=== PATIENT | female | born 1980 | race Caucasian/White ===

== ENCOUNTER 2018-01-30 20:53 | Emergency (ER) | payer MEDICAID, SELFPAY ==
--- NOTE | 2018-01-30 20:53 | DT_ITS ---
This patient was seen during an EMR downtime January 26, 2018 - February 02, 2018. This patient may have a combination of paper and electronic documentation or all paper documentation. All documentation is viewable within the e-chart portion of [employer] for each patient visit.
== END 2018-01-31 01:50 | disposition home or self-care (01) ==
PROVIDERS: Emergency Provider Emergency Medicine
DX: L50.9 Urticaria, unspecified (principal)
CPT/HCPCS: 96365; 96375; 99284

== ENCOUNTER → 2018-12-07 | Outpatient (CLI) | payer MEDICAID, SELFPAY ==
--- NOTE | 2018-12-07 13:56 | BI_ITS ---
MAMMOGRAPHY - BILATERAL DIAGNOSTIC REASON FOR EXAM: Female, 38 years old. History of right breast lump. PERTINENT HISTORY: Non-contributory. TECHNIQUE: Digital bilateral breast fitz (3D mammographic acquisition) in the CC and MLO projections. 2-D mediolateral oblique (MLO) and craniocaudad (CC) views of both breasts were obtained. CAD: Full Field Digital Mammography with Computer Added Detection was performed. COMPARISON: None. Baseline examination. FINDINGS: Breast Composition: There are scattered areas of fibroglandular density. There are no dominant masses or suspicious calcifications. There is a 3 mm well-defined nodule in the upper lateral aspect of the left breast most likely representing a small cyst. Benign appearing bilateral axillary lymph nodes. No other significant abnormalities are identified. BI/DIAG MAMM W/CAD, BILAT IMPRESSION: Negative diagnostic mammogram. With the patient's history of a palpable abnormality in the right breast, correlation with ultrasound is recommended. ASSESSMENT CATEGORY: BIRADS Category 0: Incomplete. Need additional imaging evaluation. A letter regarding these results will be sent to the patient by the facility within 30 days. Approximately 10% of breast cancers are not detected by mammography. A normal mammogram should not delay biopsy of a clinically suspicious abnormality. Electronically Signed: David Hutchins, at 8:07 EDT , Service support ,
--- NOTE | 2018-12-07 13:57 | US_ITS ---
STUDY: ULTRASOUND BREAST - RIGHT REASON FOR EXAM: Female, 38 years old. Palpable lump in the right breast. TECHNIQUE: Axial and longitudinal images of the RIGHT breast were performed with a high resolution ultrasound transducer. COMPARISON: Comparison is made with prior mammogram done earlier in the day. FINDINGS: RIGHT Breast: There is a 2 mm x 1 mm x 2 mm well-defined hypoechoic nodule at the 9:00 position of the breast at 3 cm from the nipple. This most likely represents a small fibroadenoma. This does not correspond to the palpable abnormality. IMPRESSION: 2 mm x 1 mm x 2 mm well-defined hypoechoic nodular density at the 9:00 position breast at 3 sinus and nipple. This may represent a small fibroadenoma. This does not correspond to the patient's palpable abnormality. A four-month follow-up sonogram of the breast is recommended. ASSESSMENT CATEGORY: BIRADS Category 3: Probably Benign - Short-Interval Follow-up Suggested. A letter regarding these results will be sent to the patient by the facility within 30 days. Electronically Signed: David Cuong, at 16:01 EDT , Service support , STUDY: ULTRASOUND BREAST - LEFT REASON FOR EXAM: Female, 38 years old. Abnormal screening mammogram. TECHNIQUE: Axial and longitudinal images of the LEFT breast were performed with a high resolution ultrasound transducer. COMPARISON: Comparison is made with prior mammogram done earlier in the day. FINDINGS: LEFT Breast: There is a 3 mm x 3 mm x 4 mm well-defined hypoechoic solid nodule at the 2:00 position breast at 8 cm from nipple. This corresponds to mammographic findings. A biopsy is recommended for further evaluation. US/Breast Limited Unilateral IMPRESSION: 3 mm x 3 mm x 4 mm well-defined hypoechoic nodule at the 2:00 position of the breast at 8 cm from the nipple. A biopsy is recommended. ASSESSMENT CATEGORY: BIRADS Category 4: Suspicious - Biopsy Should Be Considered. A letter regarding these results will be sent to the patient by the facility within 30 days. Electronically Signed: David Hutchins, at 16:02 EDT , Service support ,
== END | disposition home or self-care (01) ==
LOC: OPBI 13:52
PROVIDERS: Visit Provider Internal Medicine
DX: N63.41 Unspecified lump in right breast, subareolar (principal)
CPT/HCPCS: 76642; 77062; 77066; G0279

== ENCOUNTER 2021-07-16 16:24 | Emergency (ER) | payer MEDICAID, SELFPAY ==
[2021-07-16] VITALS (13 sets, daily range): BP systolic 113–132; BP diastolic 67–87; PULSE 72–99; RESP 14–28; TEMP 36.4–36.8; O2SAT 88–98; BMI 49.1
--- NOTE | 2021-07-16 16:59 | EKG12_ITS ---
Test Reason : SOB Blood Pressure : / mmHG Vent. Rate : 085 BPM Atrial Rate : 085 BPM P-R Int : 160 ms QRS Dur : 092 ms QT Int : 370 ms P-R-T Axes : 039 005 044 degrees QTc Int : 440 ms Normal sinus rhythm Normal ECG Confirmed by CAROLINE VIVEROS, DAISY ([id number]), editor at large JARVIS TREVINO ([id number]) on 07/20/2021 7:15:39 AM Referred By: MANOJ Confirmed By:DAISY VELAZQUEZ MD
--- NOTE | 2021-07-16 17:08 | EDS_ITS ---
HPI History of Present Illness Chief Complaint: Shortness of Breath Informant: patient Narrative Narrative: Patient presents with Covid symptoms. Her symptoms started Friday so she is on day 5-6. She was tested on Friday and got results on Friday. She has had some myalgias fevers. No nausea and vomiting. She has no appetite but she is able to eat. However she is not eating a lot. She is just starting with some mild soft stools. She has had nonproductive cough. She does feel bit dyspneic. She does not have an O2 sat at home. She is a smoker and was counseled to quit. She denies history of asthma or any chronic medical conditions. She did not get any immunizations. [facility] Medical History bunion removal d&c Home Medications hydroxyzine pamoate 25 mg PO TID PRN PRN #15 cap 04/21/17 [Rx Last Taken Unknown] acetaminophen 325 mg capsule 325 mg PO ONCE PRN 10/16/20 [History Last Taken Unknown] cholecalciferol (vitamin D3) 25 mcg (1,000 unit) capsule 25 mcg PO DAILY 10/16/20 [History Last Taken Unknown] ibuprofen 200 mg capsule 200 mg PO Q6H PRN 10/16/20 [History Last Taken Unknown] meloxicam 15 mg tablet 15 mg PO DAILY #30 tab 10/16/20 [Rx Last Taken Unknown] mirabegron 50 mg tablet,extended release 24 hr ea PO 10/16/20 [History Last Taken Unknown] multivitamin 1 tab PO DAILY 10/16/20 [History Last Taken Unknown] multivitamin with minerals 1 tab PO DAILY 10/16/20 [History Last Taken Unknown] topiramate 25 mg sprinkle capsule ea PO 10/16/20 [History Last Taken Unknown] venlafaxine 37.5 mg capsule,extended release 24 hr ea PO 10/16/20 [History Last Taken Unknown] albuterol sulfate [Ventolin HFA] 2 puff INHALATION Q4H PRN PRN #1 inhaler 07/16/21 [Rx Last Taken Unknown] dexamethasone [Decadron] 6 mg PO DAILY #10 tab 07/16/21 [Rx Last Taken Unknown] Allergy/AdvReac Type Severity Reaction Status Date / Time codeine Allergy Unknown Verified 07/16/21 16:46 Family History Mother Ovarian cancer Father CVA (cerebral vascular accident) Surgical History History of tonsillectomy Social History household members: children housing: house Smoking Status: Current every day smoker tobacco type: cigarettes alcohol intake: current alcohol intake frequency: 0-2 drinks per day what type of physical activity do you participate in: none do you feel safe at home: Yes ROS ROS ED Constitutional Constitutional ED: Reports chills and fever(s) Eyes Eyes: Denies blurry vision ENT ENT ED: Reports rhinorrhea; Denies sore throat Cardiovascular Cardiovascular: Denies chest pain or palpitations Respiratory/Chest Respiratory/Chest: Reports cough and dyspnea Gastrointestinal Gastrointestinal: Reports diarrhea; Denies abdominal pain, nausea or vomiting Genitourinary Genitourinary ED: Denies dysuria or hematuria Musculoskeletal Musculoskeletal: Reports myalgias Integumentary Denies rash Neurologic Neurologic: Reports headache(s); Denies paresthesias or weakness Endocrine Endocrinology: Denies polydipsia or polyuria Hematologic/Lymphatic Hematologic/Lymphatic: Denies easy bleeding or easy bruising Allergic/Immunologic Allergic/Immunologic ED: Denies mouth swelling or urticaria EXAM Physical Exam Const Vital Signs: 07/16/21 16:24 07/16/21 16:46 07/16/21 17:17 Temperature 97.6 F L Temperature Source Temporal Pulse Rate 99 91 Respiratory Rate 16 14 Respiratory Effort Short of Breath Respiratory Pattern Tachypnea Blood Pressure 127/87 H Blood Pressure Mean 100 Pulse Ox 92 97 Oxygen Delivery Method Room Air Room Air Nasal Cannula Oxygen Flow Rate (L/min) 2 07/16/21 17:29 07/16/21 17:31 07/16/21 18:43 Temperature 98 F Temperature Source Temporal Pulse Rate 87 87 88 Respiratory Rate 23 H 23 H 28 H Respiratory Effort Respiratory Pattern Blood Pressure 113/74 113/74 115/68 Blood Pressure Mean 87 87 83 Pulse Ox 96 96 96 Oxygen Delivery Method Room Air Room Air Oxygen Flow Rate (L/min) 2 07/16/21 19:26 07/16/21 20:35 07/16/21 21:26 Temperature Temperature Source Pulse Rate 95 74 72 Respiratory Rate 17 16 18 Respiratory Effort Respiratory Pattern Blood Pressure 132/77 H 128/83 H 120/69 Blood Pressure Mean 95 98 86 Pulse Ox 95 98 95 Oxygen Delivery Method Nasal Cannula Nasal Cannula Oxygen Flow Rate (L/min) 2 2 07/16/21 22:21 07/16/21 23:22 Temperature 98.2 F Temperature Source Oral Pulse Rate 74 Respiratory Rate 16 Respiratory Effort Respiratory Pattern Blood Pressure 114/67 132/74 H Blood Pressure Mean 82 93 Pulse Ox 98 Oxygen Delivery Method Room Air Oxygen Flow Rate (L/min) Positive well nourished, well developed and obese General Appearance ED: well developed and NAD Nutritional Appearance: obese HEENT Reports moist mucous membranes atraumatic Eyes General Eye ED: Negative for pale conjunctiva or scleral icterus Neck no meningeal signs and no JVD Resp normal respiratory effort and No clear to auscultation bilaterally Resp Narrative: Patient does have some mild expiratory wheezes. Auscultation: wheezes; Negative for rales, rhonchi or diminished lung sounds Cardio regular rate, regular rhythm and no murmurs GI non-tender and non-distended Palpation: soft Back/Spine no CVA tenderness Extremity normal to inspection General Extremety ED: Negative for edema or tenderness General Extremity: Negative for edema Neuro Sensorium / Orientation: alert Psych mental status grossly normal Skin Lesions: no lesions Rashes: no rashes MDM MDM MDM Narrative Medical decision making narrative: Patient's blood work showed normal CBC. Electrolytes were unremarkable. Chest x-ray did show infiltrates consistent with Covid. Patient did have some hypoxia here. We walked her off oxygen and got 87 and 88%. She actually did well on 2 L. We are waiting to get home oxygen for her. Lab Data Attestation: I reviewed the patient's lab results. Labs: Laboratory Results - last 24 hr 07/16/21 07/16/21 16:40 16:40 WBC 5.3 RBC 5.09 Hgb 14.3 Hct 42.5 MCV 83.5 MCH 28.1 MCHC 33.6 RDW Std Deviation 37.2 RDW Coeff of Donna 12.1 Plt Count 155 MPV 10.8 Immature Gran % (Auto) 0.400 Neut % (Auto) 75.5 H Lymph % (Auto) 17.5 L [place] % (Auto) 6.4 Eos % (Auto) 0.0 Baso % (Auto) 0.2 Absolute Neuts (auto) 4.0 Absolute Lymphs (auto) 0.93 Nucleated RBC % 0 Sodium 135 L Potassium 3.5 Chloride 102 Carbon Dioxide 24.0 Anion Gap 9 BUN 8 Creatinine 0.75 Estim Creat Clear Calc 85.24 Est GFR (MDRD) Af Amer 109 Est GFR (MDRD) Non-Af 90 BUN/Creatinine Ratio 10.6 Glucose 101 Calcium 8.3 L Radiography Diagnostic Testing: Clinical Impression(s) from Imaging Studies Chest X-Ray 07/16/21 17:10 IMPRESSION: Multifocal infiltrates with features commonly reported with COVID pneumonia. Electronically Signed: Joe Kirkland MD (Brooks) at 17:27 EST , Service support , EKG Initial EKG: Comments: EKG for dyspnea and cough read by me shows normal sinus rhythm with overall rate of 85. No ectopy. No acute ST elevation or depression. UT interval, QRS duration and QTc are normal. Discharge Plan Triage Chief Complaint: Shortness of Breath ED Provider: Yony Mojica Dx/Rx/DC Orders Clinical Impression: COVID-19, Hypoxia Instructions: Caring for Someone Who Has COVID-19 Prescriptions: New dexamethasone [Decadron] 6 mg tablet 6 mg PO DAILY Qty: 10 RF: 0 albuterol sulfate [Ventolin HFA] 1 INHALER inhaler 2 puff inhalation Q4H PRN PRN (Reason: Wheezing) Qty: 1 RF: 0 No Action mirabegron 50 mg tablet extended release 24 hr PO RF: 0 venlafaxine 37.5 mg capsule,extended release 24hr PO RF: 0 topiramate 25 mg capsule, sprinkle PO RF: 0 multivitamin with minerals [Hair,Skin and Nails] Tablet 1 tab PO DAILY RF: 0 cholecalciferol (vitamin D3) 25 mcg (1,000 unit) capsule 25 mcg PO DAILY RF: 0 multivitamin [Daily Multi-Vitamin] Tablet 1 tab PO DAILY RF: 0 acetaminophen [Tylenol] 325 mg capsule 325 mg PO ONCE PRNRF: 0 ibuprofen 200 mg capsule 200 mg PO Q6H PRNRF: 0 meloxicam [Mobic] 15 mg tablet 15 mg PO DAILY Qty: 30 RF: 0 hydroxyzine pamoate 25 MG capsule 25 mg PO TID PRN PRN (Reason: Anxiety) Qty: 15 RF: 0 Primary Care Provider: Jeanna Kate Referrals: Jeanna Kate MD [Primary Care Provider] - 1 Week if not improving Disposition Disposition: Home, Self Care Discharge Date/Time: 07/16/21 23:22
--- NOTE | 2021-07-16 17:10 | RAD_ITS ---
STUDY: X-RAY CHEST REASON FOR EXAM: Female, 41 years old. covid TECHNIQUE: AP COMPARISON: None. FINDINGS: EKG leads project over the chest. Multifocal infiltrates with features commonly reported with COVID pneumonia. There is no demonstrated pleural abnormality. Normal size heart. Normal mediastinum and nena. Normal visualized pulmonary arteries. Normal visualized aortic arch and descending thoracic aorta. Normal visualized thoracic spine. Normal visualized ribs, clavicles, and shoulders. There is no demonstrated abnormality of the visualized soft tissue structures of the upper abdomen. RAD/Chest 1 View (Portable) IMPRESSION: Multifocal infiltrates with features commonly reported with COVID pneumonia. Electronically Signed: Joe Kirkland MD (Brooks) at 17:27 EST , Service support ,
[2021-07-16] MEDS: Ipratropium/Albuterol Sulfate 3 ML AMPUL.NEB INHALATION (17:17)
[2021-07-16] MEDS: dexAMETHasone 4 MG/ML Vial 6 MG IV (17:17)
[2021-07-16 17:37] LABS: Absolute Lymphocyte Count 0.93 X10^3/uL (0.83-4.51); Basophil# 0.01 X10^3/uL; Basophil% 0.2 % (0-1); Hematocrit 42.5 % (37-47); Hemoglobin 14.3 g/dL (12.0-15.0); Lymphocyte # 0.93 X10^3/ul (0.83-4.51); Lymphocyte % 17.5 % (19-41); Mean Corp Hgb Conc 33.6 g/dL (32-36); Mean Corpuscular Hgb 28.1 pg (27.0-32.0); Mean Corpuscular Volume 83.5 fL (81-99); Mean Platelet Vol. 10.8 fl (6.2-12.0); Monocyte# 0.34 X10^3/uL; Monocyte% 6.4 % (0-10); NRBC Flagged by Analyzer 0 % (0-5); Neutrophil # 4.02 X10^3/uL (2.7-7.7); Neutrophil % 75.5 % (47-70); Platelet Count 155 K/mm3 (150-450); RBC Distribution Width CV 12.1 % (11.6-14.6); RBC Distribution Width SD 37.2 fl (35.1-43.9); Red Blood Count 5.09 M/mm3 (4.2-5.4); White Blood Count 5.3 K/mm3 (4.4-11.0)
[2021-07-16 17:49] LABS: Anion Gap 9 (5-15); BUN 8 mg/dL (7-18); BUN/Creat Ratio 10.6 RATIO (10-20); Calcium,Total 8.3 mg/dL (8.5-10.1); Chloride 102 mmol/L (98-107); Creatinine, Serum 0.75 mg/dL (0.55-1.02); EST Glomerular Filtration Rate 90 mL/min (>60); Est Glom Filt Rate - Afr Amer 109 mL/min (>60); Estimated Creatinine Clearance 85.24 ml/min; Glucose 101 mg/dL (74-106); Potassium 3.5 mmol/L (3.5-5.1); Sodium Level 135 mmol/L (136-145)
[2021-07-16] MEDS: Acetaminophen 500 MG Tablet 1000 MG PO (19:05)
--- NOTE | 2021-07-16 22:05 | CM.ED ---
Addendum entered by Cuca Braxton 07/16/21 22:26: NIESHA received confirmation receipt for fax . NIESHA provided paperwork to ED maintenance carpenter Alyssa for follow up after this global technical writer leaves. Cuca MONTANO Original Note: NIESHA Note NIESHA was advised by that patient needs home oxygen for discharge. NIESHA had already called [facility] and they have no concentrators. NIESHA had already called [facility] and they can not arrange for home oxygen tonight. NIESHA received email earlier in the day that [facility] has no concentrator's. NIESHA spoke to Harpreet at [facility]. They have no concentrators. They will get overnight shipment from [facility] so will have have some tomorrow. NIESHA called [facility] and spoke to Cuca. She reports that they should have concentrators and oxygen supplies. SHe advised to fax over testing results and documentation to their office. NIESHA faxed referral to [employer]. Cuca MONTANO
--- NOTE | 2021-07-16 22:20 | ED.RN ---
waiting on home o2
--- NOTE | 2021-07-17 14:44 | CASEMGMT ---
Addendum entered and electronically signed by Elda Mallory RN 07/17/21 14:49: Pt asked about use of O2 tank to go downstairs to prepare a meal. Relayed O2 tanks last approximately 4 hours at 2l/min but also suggested pt call [employer] to request additional tubing to allow her to navigate her home. Phone number for [employer] provided to pt. Dee Mallory RN CM Original Note: YONATAN SALTER ED COVID Home O2 Follow-up: This YONATAN SALTER contacted pt in follow-up to her home O2 set-up. Pt states she feels about the same and reports to become SOB and have severe coughing with minimal activity. Pt states she has remained upstairs and has not been moving around the house much. Pt states she has not been eating except for drinking water and she had 5 crackers with her medication. Pt states her dad dropped off her prescriptions to her. Pt states she has friends and family who have been stopping by intermittently but they do not stay. Pt states her children ages 10yo and 6yo remain in the home and bring her food intermittently and are primarily downstairs. Pt states she has asked family and friends to stay with the kids to help watch them but states she doesn't have much family near by to help. Discussed follow-up with Dr. Kate. Pt states she wasn't aware she was to call. Encouraged her to call Dr. Kate's office for follow-up which pt was agreeable to and experessed understanding. Pt states she continues to wear the O2 at 2l/min but does not have a pulse oximeter to know where her oxygen levels stand. Pt states she does have someone who could get her one. Pt denies any further questions or concerns at this time. Dee Mallory RN CM
--- NOTE | 2021-07-18 14:22 | CASEMGMT ---
RN JOIE ED COVID Home O2 Follow-up: Patient states she is not doing well, very SOB with activity. Patient states she is wearing 2 lpm and is at 88%. RN CM instructed patient to increase oxygen to 3lpm and patient came up to 90%. Patient states she is having some anxiety. RN CM encourage patient to call Dr. Kate's office after hanging up with YONATAN SALTER. Patient voiced understanding and had Dr. Kate's number to call. Patient had no further questions or concerns at this time.
== END 2021-07-16 23:22 | disposition home or self-care (01) ==
PROVIDERS: Emergency Provider Emergency Medicine; PCP Internal Medicine
DX: U07.1 COVID-19 (principal); R09.02 Hypoxemia; E66.9 Obesity, unspecified; F17.210 Nicotine dependence, cigarettes, uncomplicated
CPT/HCPCS: 71045; 80048; 85025; 93005; 94640; 96374; 99283; A4216

== ENCOUNTER 2021-07-18 21:17 | Inpatient (IN) | payer MEDICAID, SELFPAY ==
[2021-07-18] VITALS (9 sets, daily range): BP systolic 130–143; BP diastolic 75–82; PULSE 90–104; RESP 17–23; TEMP 36.2–37.4; O2SAT 90–92; BMI 66.0
--- NOTE | 2021-07-18 21:37 | EKG12_ITS ---
Test Reason : SOB Blood Pressure : / mmHG Vent. Rate : 088 BPM Atrial Rate : 088 BPM P-R Int : 144 ms QRS Dur : 090 ms QT Int : 348 ms P-R-T Axes : 044 009 036 degrees QTc Int : 421 ms Normal sinus rhythm Normal ECG Confirmed by CAROLINE VIVEROS, DAISY ([id number]), multimedia editor JARVIS TREVINO ([id number]) on 07/20/2021 11:43:58 AM Referred By: JAMEY Confirmed By:DAISY VELAZQUEZ MD
--- NOTE | 2021-07-18 21:50 | RAD_ITS ---
STUDY: X-RAY CHEST REASON FOR EXAM: Female, 41 years old. dypsnea TECHNIQUE: AP COMPARISON: 07/16/2021 FINDINGS: EKG leads project over the chest. Multilobar airspace disease involving the left midlung and right upper lobe worse since the prior study. There is no demonstrated pleural abnormality. Normal size heart. Normal mediastinum and nena. Normal visualized pulmonary arteries. Normal visualized aortic arch and descending thoracic aorta. Normal visualized thoracic spine. Normal visualized ribs, clavicles, and shoulders. There is no demonstrated abnormality of the visualized soft tissue structures of the upper abdomen. RAD/Chest 1 View (Portable) IMPRESSION: Worsening multilobar airspace disease/pneumonia. Electronically Signed: Joe Kirkland MD (Brooks) at 22:12 EST , Service support ,
[2021-07-18 21:52] LABS: Absolute Neutrophil Count 4.6 X10^3/uL (2.0-7.7); Hematocrit 41.8 % (37-47); Hemoglobin 13.9 g/dL (12.0-15.0); Lymphocyte % 9.2 % (19-41); Mean Corp Hgb Conc 33.3 g/dL (32-36); Mean Corpuscular Hgb 27.9 pg (27.0-32.0); Mean Corpuscular Volume 83.8 fL (81-99); Mean Platelet Vol. 10.3 fl (6.2-12.0); Monocyte# 0.33 X10^3/uL; Monocyte% 6.1 % (0-10); NRBC Flagged by Analyzer 0 % (0-5); Neutrophil # 4.59 X10^3/uL (2.7-7.7); Neutrophil % 84.3 % (47-70); POSITIVE DIFFERENTIAL YES; Platelet Count 199 K/mm3 (150-450); RBC Distribution Width CV 12.3 % (11.6-14.6); RBC Distribution Width SD 37.4 fl (35.1-43.9); Red Blood Count 4.99 M/mm3 (4.2-5.4); White Blood Count 5.4 K/mm3 (4.4-11.0)
[2021-07-18 21:58] LABS: Differential Indicated SCAN CRITERIA MET
[2021-07-18 22:08] LABS: Prothrombin Time (Protime)PT. 12.1 SECONDS (11.7-14.9)
[2021-07-18 22:12] LABS: Mucous, Urine 0 SEEN /hpf (<or=2+)
[2021-07-18 22:26] LABS: ALB/GLOB Ratio 0.6 RATIO (0.9-2.4); AST(SGOT) 29 U/L (15-37); Alanine Aminotransfer ALT/SGPT 30 U/L (13-56); Albumin, Serum 2.9 g/dL (3.2-5.0); Alkaline Phosphatase 64 U/L (45-117); Anion Gap 8 (5-15); BUN 10 mg/dL (7-18); BUN/Creat Ratio 16.5 RATIO (10-20); Calcium,Total 8.6 mg/dL (8.5-10.1); Chloride 104 mmol/L (98-107); EST Glomerular Filtration Rate 116 mL/min (>60); Est Glom Filt Rate - Afr Amer 140 mL/min (>60); Estimated Creatinine Clearance 106.55 ml/min; Globulin 4.6 g/dL (2.2-4.2); Glucose 157 mg/dL (74-106); Potassium 3.8 mmol/L (3.5-5.1); Protein, Total 7.5 g/dL (6.4-8.2); Sodium Level 139 mmol/L (136-145)
[2021-07-18 22:28] LABS: Lactic Acid 0.9 mmol/L (0.4-1.9)
[2021-07-18 22:29] LABS: Platelet Estimate ADEQUATE (ADEQ)
[2021-07-18 22:29] LABS: Color, Urine Yellow (Yellow); Glucose, Dipstick Normal (Normal); Ketone-Dipstick Negative (Negative); Leukocyte Esterase-Dipstick 100 /ul (Negative); Nitrite-Dipstick Negative (Negative); Occult Blood-Urine 25 /ul (Negative); Protein-Dipstick 100 mg/dl (Negative); Specific Gravity, Urine 1.015 (1.002-1.030); Urine Bilirubin Dipstick Negative (Negative); Urine Clarity Clear (Clear); Urine Urobilinogen 1 mg/dl (Normal)
[2021-07-18 22:30] LABS: Red Cell Morphology NORM C+C NORMAL (NORM C&C)
[2021-07-18 22:41] LABS: Bacteria 1+ /hpf (None Seen); Red Blood Cells-Urine 0-5 SEEN /hpf (0-5); Squamous Epithelial Cells - UA 5-10 SEEN /hpf (5-10); White Blood Cells 5-10 SEEN /hpf (0-5)
--- NOTE | 2021-07-18 22:56 | EDS_ITS ---
HPI History of Present Illness Chief Complaint: Shortness of Breath Narrative Narrative: 41-year-old female presenting with hypoxia. She is currently on day 8 of COVID-19 symptoms. Her fevers and chills have resolved. She noted that her pulse ox is 81% on 3 L. She states he was previously seen for this and sent home on oxygen continually declining and her O2 saturations. Patient is a smoker. She denies a history of COPD or asthma however. [facility] Medical History bunion removal d&c Home Medications hydroxyzine pamoate 25 mg PO TID PRN PRN #15 cap 04/21/17 [Rx Last Taken Unknown] acetaminophen 325 mg capsule 325 mg PO ONCE PRN 10/16/20 [History Last Taken Unknown] cholecalciferol (vitamin D3) 25 mcg (1,000 unit) capsule 25 mcg PO DAILY 10/16/20 [History Last Taken Unknown] ibuprofen 200 mg capsule 200 mg PO Q6H PRN 10/16/20 [History Last Taken Unknown] meloxicam 15 mg tablet 15 mg PO DAILY #30 tab 10/16/20 [Rx Last Taken Unknown] mirabegron 50 mg tablet,extended release 24 hr ea PO 10/16/20 [History Last Taken Unknown] multivitamin 1 tab PO DAILY 10/16/20 [History Last Taken Unknown] multivitamin with minerals 1 tab PO DAILY 10/16/20 [History Last Taken Unknown] topiramate 25 mg sprinkle capsule ea PO 10/16/20 [History Last Taken Unknown] venlafaxine 37.5 mg capsule,extended release 24 hr ea PO 10/16/20 [History Last Taken Unknown] albuterol sulfate [Ventolin HFA] 2 puff INHALATION Q4H PRN PRN #1 inhaler 07/16/21 [Rx Last Taken Unknown] dexamethasone [Decadron] 6 mg PO DAILY #10 tab 07/16/21 [Rx Last Taken Unknown] Allergy/AdvReac Type Severity Reaction Status Date / Time codeine Allergy Unknown Verified 07/18/21 21:19 Family History Mother Ovarian cancer Father CVA (cerebral vascular accident) Surgical History History of tonsillectomy Social History household members: children housing: house Smoking Status: Current every day smoker tobacco type: cigarettes alcohol intake: current alcohol intake frequency: 0-2 drinks per day what type of physical activity do you participate in: none do you feel safe at home: Yes ROS ROS ED Constitutional Constitutional ED: Denies chills or fever(s) Eyes Eyes: Denies blurry vision or diplopia ENT ENT ED: Denies rhinorrhea or sore throat Cardiovascular Cardiovascular: Denies chest pain or palpitations Respiratory/Chest Respiratory/Chest: Reports cough, dyspnea and dyspnea on exertion Gastrointestinal Gastrointestinal: Denies abdominal pain, nausea or vomiting Genitourinary Genitourinary ED: Denies dysuria or hematuria Musculoskeletal Musculoskeletal: Denies arthralgias or myalgias Integumentary Denies Abrasions or rash Neurologic Neurologic: Denies headache(s) or paresthesias EXAM Physical Exam Const Vital Signs: 07/18/21 21:17 07/18/21 21:27 07/18/21 21:43 Temperature 97.2 F L 97.2 F L 98.2 F Temperature Source Temporal Temporal Temporal Pulse Rate 104 H 104 H 94 Respiratory Rate 20 H 20 H 23 H Blood Pressure 143/82 H 143/82 H 138/79 H Blood Pressure Mean 102 102 98 Pulse Ox 90 90 92 Oxygen Delivery Method Nasal Cannula Nasal Cannula Nasal Cannula Oxygen Flow Rate (L/min) 3 3 3 07/18/21 21:46 07/18/21 22:39 07/18/21 22:41 Temperature 98.3 F 99.3 F H Temperature Source Temporal Temporal Pulse Rate 90 Respiratory Rate 17 Blood Pressure 130/75 H Blood Pressure Mean 93 Pulse Ox 90 90 Oxygen Delivery Method Nasal Cannula Nasal Cannula Oxygen Flow Rate (L/min) 4 4 07/18/21 22:42 07/18/21 23:22 Temperature Temperature Source Pulse Rate 100 Respiratory Rate 21 H Blood Pressure Blood Pressure Mean Pulse Ox 92 Oxygen Delivery Method Nasal Cannula Oxygen Flow Rate (L/min) 5 Positive well nourished General Appearance ED: NAD; Negative for pallor HEENT Reports moist mucous membranes atraumatic Eyes PERRL and EOMs intact bilaterally Resp normal respiratory effort Auscultation: wheezes scattered wheezes Cardio regular rhythm Rate: bradycardia Neuro oriented x3, CN's II-XII intact bilaterally and no sensory deficits noted Sensorium / Orientation: alert Motor Exam: strength 5/5 throughout Skin General Skin Exam: Negative for jaundice or pallor Rashes: no rashes MDM MDM MDM Narrative Medical decision making narrative: Patient on day 8 of COVID-19 symptoms presenting with hypoxia. On my examination she is 90% on her 3 L. She states she drop she is going to the bedside commode. She was 81% at home. Obtain an EKG as well as initiate a sepsis work-up due to the tachycardia, tachypnea and hypoxia. EKG on my interpretation shows normal sinus rhythm ventricular rate of 88 bpm. CBC shows her white blood cell count is 5.4, hemoglobin 13.9, hematocrit 41.8, platelets 199. PT/INR normal. Renal function and electrolytes are normal. LFTs are normal. Lactic acid 0.9. Urinalysis negative for infection. Chest x-ray on my interpretation shows multi lobar infiltrates which appear worse than her previous exam. The radiologist does agree. Given patient's hypoxia will obtain a CTA of the chest to rule out PE. CTA of the chest is negative for PE but does show extensive Covid pneumonitis. I reevaluated the patient and she stated after breathing treatment she felt a little warm. I checked her temperature personally and it was 101. She is ordered Tylenol. Given patient's hypoxia and failed outpatient treatment I will talk to the hospitalist for admission. Impression: 1. Hypoxic respiratory failure 2. COVID-19 pneumonitis Lab Data Labs: Laboratory Results - last 24 hr 07/18/21 07/18/21 07/18/21 21:40 21:40 21:40 WBC 5.4 RBC 4.99 Hgb 13.9 Hct 41.8 MCV 83.8 MCH 27.9 MCHC 33.3 RDW Std Deviation 37.4 RDW Coeff of Donna 12.3 Plt Count 199 MPV 10.3 Immature Gran % (Auto) 0.400 Neut % (Auto) 84.3 H Lymph % (Auto) 9.2 L [place] % (Auto) 6.1 Eos % (Auto) 0.0 Baso % (Auto) 0.0 Absolute Neuts (auto) 4.6 Absolute Lymphs (auto) 0.50 L Nucleated RBC % 0 Differential Comment Platelet Estimate ADEQUATE RBC Morphology NORM C+C PT 12.1 INR 1.0 APTT 32.0 Sodium 139 Potassium 3.8 Chloride 104 Carbon Dioxide 27.0 Anion Gap 8 BUN 10 Creatinine 0.60 Estim Creat Clear Calc 106.55 Est GFR (MDRD) Af Amer 140 Est GFR (MDRD) Non-Af 116 BUN/Creatinine Ratio 16.5 Glucose 157 H Lactic Acid Calcium 8.6 Total Bilirubin 0.30 AST 29 ALT 30 Alkaline Phosphatase 64 Total Protein 7.5 Albumin 2.9 L Globulin 4.6 H Albumin/Globulin Ratio 0.6 L Urine Color Urine Clarity Urine pH Ur Specific [place] Urine Protein Urine Glucose (UA) Urine Ketones Urine Occult Blood Urine Nitrite Urine Bilirubin Urine Urobilinogen Ur Leukocyte Esterase Urine RBC Urine WBC Ur Squamous Epith Cells Urine Bacteria Urine Mucus 07/18/21 07/18/21 21:40 22:00 WBC RBC Hgb Hct MCV MCH MCHC RDW Std Deviation RDW Coeff of Donna Plt Count MPV Immature Gran % (Auto) Neut % (Auto) Lymph % (Auto) [place] % (Auto) Eos % (Auto) Baso % (Auto) Absolute Neuts (auto) Absolute Lymphs (auto) Nucleated RBC % Differential Comment Platelet Estimate RBC Morphology PT INR APTT Sodium Potassium Chloride Carbon Dioxide Anion Gap BUN Creatinine Estim Creat Clear Calc Est GFR (MDRD) Af Amer Est GFR (MDRD) Non-Af BUN/Creatinine Ratio Glucose Lactic Acid 0.9 Calcium Total Bilirubin AST ALT Alkaline Phosphatase Total Protein Albumin Globulin Albumin/Globulin Ratio Urine Color Yellow Urine Clarity Clear Urine pH 6.0 Ur Specific [place] 1.015 Urine Protein 100 H Urine Glucose (UA) Normal Urine Ketones Negative Urine Occult Blood 25 H Urine Nitrite Negative Urine Bilirubin Negative Urine Urobilinogen 1 H Ur Leukocyte Esterase 100 H Urine RBC 0-5 SEEN Urine WBC 5-10 SEEN Ur Squamous Epith Cells 5-10 SEEN Urine Bacteria 1+ Urine Mucus 0 SEEN Radiography Diagnostic Testing: Clinical Impression(s) from Imaging Studies Chest X-Ray 07/18/21 21:50 IMPRESSION: Worsening multilobar airspace disease/pneumonia. Electronically Signed: Joe Kirkland MD ([place]) at 22:12 EST , Service support , Chest CTA 11/24/21 23:18 IMPRESSION: 1. No evidence of pulmonary embolus. 2. No aortic dissection or aneurysm. 3. Patchy ground glass infiltrates suggestive of COVID pneumonia. Electronically Signed: Piero Nicholson DO at 23:48 EST Tel [phone], Service support , Discharge Plan Triage Chief Complaint: Shortness of Breath ED Provider: Dylon Carter Dx/Rx/DC Orders Prescriptions: No Action mirabegron 50 mg tablet extended release 24 hr PO RF: 0 venlafaxine 37.5 mg capsule,extended release 24hr PO RF: 0 topiramate 25 mg capsule, sprinkle PO RF: 0 multivitamin with minerals [Hair,Skin and Nails] Tablet 1 tab PO DAILY RF: 0 cholecalciferol (vitamin D3) 25 mcg (1,000 unit) capsule 25 mcg PO DAILY RF: 0 multivitamin [Daily Multi-Vitamin] Tablet 1 tab PO DAILY RF: 0 acetaminophen [Tylenol] 325 mg capsule 325 mg PO ONCE PRN (Reason: Fever Or Pain) RF: 0 ibuprofen 200 mg capsule 200 mg PO Q6H PRN (Reason: Fever Or Pain) RF: 0 meloxicam [Mobic] 15 mg tablet 15 mg PO DAILY Qty: 30 RF: 0 hydroxyzine pamoate 25 MG capsule 25 mg PO TID PRN PRN (Reason: Anxiety) Qty: 15 RF: 0 dexamethasone [Decadron] 6 mg tablet 6 mg PO DAILY Qty: 10 RF: 0 albuterol sulfate [Ventolin HFA] 1 INHALER inhaler 2 puff inhalation Q4H PRN PRN (Reason: Wheezing) Qty: 1 RF: 0 Primary Care Provider: Jeanna Kate
--- NOTE | 2021-07-18 23:06 | ED.RN ---
Confirmed with Dr Raul weir to CT without test. Patient does confirm no concerns for .
--- NOTE | 2021-07-18 23:18 | CT_ITS ---
STUDY: CTA CHEST REASON FOR EXAM: Female, 41 years old. Hypoxia. COVID. Worsening shortness of breath. RADIATION DOSAGE (If Supplied By Facility): CTDIvol = ( 11.48 ) mGy, DLP = ( 494.24 ) mGycm TECHNIQUE: The examination was performed with the intravenous administration of IV 100mL Isovue-370. Post-processing of the angiographic images was performed, with multiplanar reformation and 3D reconstruction. Individualized dose optimization techniques were used for this CT. COMPARISON: Chest, 07/18/2021 FINDINGS: Normal enhancement of the main pulmonary artery and right and left pulmonary arteries. Normal enhancement of the bilateral peripheral pulmonary arteries. There is no demonstrated pulmonary embolism. Normal thoracic aorta and visualized great vessels. There is no demonstrated aortic dissection. Normal heart and pericardium. Normal mediastinum. Normal hilar regions. Normal visualized trachea and bronchi. The lungs are well expanded. And she predominantly peripheral groundglass infiltrates throughout both lungs greater on the left. There is no consolidation or mass. Normal pleura. Normal chest wall structures. There are degenerative changes of thoracic spine. Normal visualized upper abdomen. CT/CTA Chest W/WO Contrast IMPRESSION: 1. No evidence of pulmonary embolus. 2. No aortic dissection or aneurysm. 3. Patchy ground glass infiltrates suggestive of COVID pneumonia. Electronically Signed: Piero Nicholson DO at 23:48 EST Tel [phone], Service support ,
[2021-07-18] MEDS: Albuterol 2.5 MG/3 ML VIAL.NEB. INHALATION (23:22)
[2021-07-18] MEDS: Ipratropium/Albuterol Sulfate 3 ML AMPUL.NEB INHALATION (23:22)
[2021-07-19] VITALS (15 sets, daily range): BP systolic 106–140; BP diastolic 52–82; PULSE 89–102; RESP 16–26; TEMP 36.9–38.6; O2SAT 87–94; BMI 48.6
[2021-07-19] MEDS: Acetaminophen 500 MG Tablet 1000 MG PO (00:03)
--- NOTE | 2021-07-19 00:12 | HP.PCM.HOS_ITS ---
HPI - General General Date of Admission: 07/19/21 HPI Maura BE is a 41 F with a significant history of anxiety disorder, tobacco abuse, and morbid obesity who presents to emergency department with progressively worsening shortness of breath that started 3 days before p resentation. Associated with her symptoms is cough productive for greenish and at times clear sputum. Further she has fatigue, fever, chills, diaphoresis and anorexia. She had diarrhea that has since resolved. She tested positive for Covid 8 days before presentations and she has had Covid-like symptoms a day before presentation. She was at the hospital a day before this new presentation and was discharged home on oxygen. While on 2 L home oxygen she continued to be hypoxic and even with increasing her oxygen to 3 L her oxygen saturation was about 81%. [facility] Medical History bunion removal d&c Smoker Home Medications hydroxyzine pamoate 25 mg PO TID PRN PRN #15 cap 04/21/17 [Rx Last Taken Unkn own] acetaminophen 325 mg capsule 325 mg PO ONCE PRN 10/16/20 [History Last Taken Unknown] cholecalciferol (vitamin D3) 25 mcg (1,000 unit) capsule 25 mcg PO DAILY 10/16/20 [History Last Taken Unknown] ibuprofen 200 mg capsule 200 mg PO Q6H PRN 10/16/20 [History Last Taken Unknown] meloxicam 15 mg tablet 15 mg PO DAILY #30 tab 10/16/20 [Rx Last Taken Unknown] mirabegron 50 mg tablet,extended release 24 hr ea PO 10/16/20 [History Last Taken Unknown] multivitamin 1 tab PO DAILY 10/16/20 [History Last Taken Unknown] multivitamin with minerals 1 tab PO DAILY 10/16/20 [History Last Taken Unknown] topiramate 25 mg sprinkle capsule ea PO 10/16/20 [History Last Taken Unknown] venlafaxine 37.5 mg capsule,extended release 24 hr ea PO 10/16/20 [History Last Taken Unknown] albuterol sulfate [Ventolin HFA] 2 puff INHALATION Q4H PRN PRN #1 inhaler 07/16/21 [Rx Last Taken Unknown] dexamethasone [Decadron] 6 mg PO DAILY #10 tab 07/16/21 [Rx Last Taken Unknown] Allergy/AdvReac Type Severity Reaction Status Date / Time codeine Allergy Unknown Verified 07/18/21 21:19 Family History Mother Ovarian cancer Father CVA (cerebral vascular accident) Surgical History History of tonsillectomy Social History household members: children housing: house Smoking Status: Current every day smoker tobacco type: cigarettes alcohol intake: current alcohol intake frequency: 0-2 drinks per day what type of physical activity do you participate in: none do you feel safe at home: Yes ROS ROS Narrative Constitutional: Reports fever and chills. She reports anorexia. Eyes: Denies blurry vision, change in eye color, change in vision, discharge from eye(s), double vision, erythema, eye pain, loss of vision or other HEENT: Denies abnormal hearing, dysphagia, ear pain, epistaxis, headache(s), hearing loss, nasal congestion, nasal discharge, post nasal drip, sinus pressure, sore throat or other Cardiovascular: Denies chest pain or palpitations. Respiratory/Chest: Reports a productive cough and shortness of breath. Gastrointestinal: Reports recent diarrhea (now resolved). Denies abdominal pain, coffee ground emesis, constipation, diarrhea, dyspepsia, hematemesis, hematochezia, loose stools, melena, or other Genitourinary: Denies burning urination, difficulty urinating, dysuria, hematuria, nocturia, urinary frequency, urinary hesitancy, urinary incontinence, urinary urgency or other Musculoskeletal: Denies arthralgias, back pain, joint pain, joint stiffness, joint swelling, neck pain or other Neurologic: Denies abnormal gait, abnormal speech, confusion, disequilibrium, dizziness, focal weakness, headache(s), numbness, paresthesias, seizure-like activity, seizures, syncope, tingling, tremor(s) or other Psychiatric: Reports anxiety. Denies homicidal ideation, suicidal ideation or other Endocrinology: Denies change in body appearance, cold intolerance, excessive sweating, heat intolerance, polydipsia, polyuria or other Hematologic/Lymphatic: Denies anemia, easy bleeding, easy bruising, ly mphadenopathy or other Integumentary: Denies rashes Allergic/Immunologic: Denies rhinitis, hives, eczema, asthma or other Vital Signs Vital Signs Vital Signs: 07/18/21 21:17 07/18/21 21:27 07/18/21 21:43 Temperature 97.2 F L 97.2 F L 98.2 F Temperature Source Temporal Temporal Temporal Pulse Rate 104 H 104 H 94 Respiratory Rate 20 H 20 H 23 H Blood Pressure 143/82 H 143/82 H 138/79 H Blood Pressure Mean 102 102 98 Pulse Ox 90 90 92 Oxygen Delivery Method Nasal Cannula Nasal Cannula Nasal Cannula Oxygen Flow Rate (L/min) 3 3 3 07/18/21 21:46 07/18/21 22:39 07/18/21 22:41 Temperature 98.3 F 99.3 F H Temperature Source Temporal Temporal Pulse Rate 90 Respiratory Rate 17 Blood Pressure 130/75 H Blood Pressure Mean 93 Pulse Ox 90 90 Oxygen Delivery Method Nasal Cannula Nasal Cannula Oxygen Flow Rate (L/min) 4 4 07/18/21 22:42 07/18/21 23:22 07/19/21 00:02 Temperature 100.3 F H Temperature Source Temporal Pulse Rate 100 100 Respiratory Rate 21 H 26 H Blood Pressure 133/74 H Blood Pressure Mean 93 Pulse Ox 92 93 Oxygen Delivery Method Nasal Cannula Nasal Cannula Oxygen Flow Rate (L/min) 5 5 Weight Weight: 174.633 kg Body Mass Index (BMI) 66.0 Physical Exam Narrative Physical exam: General: Morbidly obese female. Head: Normocephalic, atraumatic, no tenderness Eyes: PERRLA, EOMI ENT, no trauma, moist mucous membranes, no rhinorrhea Neck: Nontender, full range of motion, no spinal tenderness, deformities, step- off CVS: Regular rate and rhythm. S1-S2 present. No murmur, gallop or rub. Respiratory : Tachypnea, diminished and with rales. Chest wall nontender. No wheezes. Abdomen: Soft, nontender, nondistended, normal bowel sounds, no masses : Deferred Back: Nontender, no CVA tenderness, no midline spinal tenderness, deformities, step-offs Extremities: Nontender full range of motion, no trauma Skin: Normal color, no trauma, abrasions Neuro: Alert, oriented, cranial nerves II through XII grossly intact. Psychiatry: Normal mood. Normal affect. Not depressed. Not anxious. Results Lab / Micro Data Result Diagrams: 07/18/21 21:40 07/18/21 21:40 Labs: Laboratory Results - last 24 hr 07/18/21 21:40: WBC 5.4, RBC 4.99, Hgb 13.9, Hct 41.8, MCV 83.8, MCH 27.9, MCHC 33.3, RDW Std Deviation 37.4, RDW Coeff of Donna 12.3, Plt Count 199, MPV 10.3, Immature Gran % (Auto) 0.400, Neut % (Auto) 84.3 H, Lymph % (Auto) 9.2 L, [place] % (Auto) 6.1, Eos % (Auto) 0.0, Baso % (Auto) 0.0, Absolute Neuts (auto) 4.6, Absolute Lymphs (auto) 0.50 L, Nucleated RBC % 0, Differential Comment , Platelet Estimate ADEQUATE, RBC Morphology NORM C+C 07/18/21 21:40: PT 12.1, INR 1.0, APTT 32.0 07/18/21 21:40: Sodium 139, Potassium 3.8, Chloride 104, Carbon Dioxide 27.0, Anion Gap 8, BUN 10, Creatinine 0.60, Estim Creat Clear Calc 106.55, Est GFR (MDRD) Af Amer 140, Est GFR (MDRD) Non-Af 116, BUN/Creatinine Ratio 16.5, Glucose 157 H, Calcium 8.6, Total Bilirubin 0.30, AST 29, ALT 30, Alkaline Phosphatase 64, Total Protein 7.5, Albumin 2.9 L, Globulin 4.6 H, Albumin/Globulin Ratio 0.6 L 07/18/21 21:40: Lactic Acid 0.9 07/18/21 22:00: Urine Color Yellow, Urine Clarity Clear, Urine pH 6.0, Ur Specific [place] 1.015, Urine Protein 100 H, Urine Glucose (UA) Normal, Urine Ketones Negative, Urine Occult Blood 25 H, Urine Nitrite Negative, Urine Bilirubin Negative, Urine Urobilinogen 1 H, Ur Leukocyte Esterase 100 H, Urine RBC 0-5 SEEN, Urine WBC 5-10 SEEN, Ur Squamous Epith Cells 5-10 SEEN, Urine Bacteria 1+, Urine Mucus 0 SEEN Radiology Impression Chest X-Ray 07/18/21 21:50 IMPRESSION: Worsening multilobar airspace disease/pneumonia. Electronically Signed: Joe Kirkland MD ([place]) at 22:12 EST , Service support , Chest CTA 07/18/21 23:18 IMPRESSION: 1. No evidence of pulmonary embolus. 2. No aortic dissection or aneurysm. 3. Patchy ground glass infiltrates suggestive of COVID pneumonia. Electronically Signed: Piero Nicholson DO at 23:48 EST Tel [phone], Service support , Assessment & Plan Assessment/Plan (1) COVID-19: (2) Hypoxia: (3) Acute hypoxemic respiratory failure: (4) Morbid obesity due to excess calories: PLAN: Acute hypoxemic respiratory failure secondary to SARS- COV 2 Respiratory rate as high as 26. Requiring 5 L nasal cannula oxygen to maintain oxygen saturation of 93%. On home 2 to 3 L her oxygen saturation was in the 80s. Supplemental oxygen continued Chest x-ray on 07/18/2021 and.of 07/16/2021 was independently interpreted and I agree with radiologist interpretation of progressively worsening multifocal pneumonia. Chest CTA was independently interpreted and I agree with radiologist interpretation above. Positive coronavirus test outpatient. Order to obtain records. Review of labs shows normal white count. Was on home decadron. continued. Creatinine clearance is more than 30. Liver biochemistry is normal. Remdesivir ordered. Tylenol for fever and pain Mucinex ordered Incentive spirometer; and chest physiotherapy ordered. Tobacco abuse Counselled. She has not smoked since her marino virus symptoms started. Declined nicotine patch. Morbid Obesity due to excess calories: BMI: 48.7Kg/m2. Complicates care. Lifestyle modification recommended. DVT prophylaxis Subcutaneous Lovenox ordered. Charges/Coding Visit Charges Inpatient E&M: 29080 Init Hosp L3
[2021-07-19] MEDS: guaiFENesin 1,200 MG Tablet 1200 MG PO ×3 (01:15→21:23)
[2021-07-19 01:43] LABS: Procalcitonin 0.05 ng/mL (0.00-0.09)
--- NOTE | 2021-07-19 03:52 | PCS.PANDOC ---
PANDEMIC DOCUMENTATION INITIATED: Date: 04/09/2021 Time: 190
[2021-07-19 08:04] LABS: Absolute Lymphocyte Count 0.96 X10^3/uL (0.83-4.51); Absolute Neutrophil Count 5.8 X10^3/uL (2.0-7.7); Basophil# 0.01 X10^3/uL; Basophil% 0.1 % (0-1); Hematocrit 39.2 % (37-47); Hemoglobin 13.3 g/dL (12.0-15.0); Lymphocyte # 0.96 X10^3/ul (0.83-4.51); Lymphocyte % 13.3 % (19-41); Mean Corp Hgb Conc 33.9 g/dL (32-36); Mean Corpuscular Hgb 28.5 pg (27.0-32.0); Mean Corpuscular Volume 84.1 fL (81-99); Mean Platelet Vol. 10.1 fl (6.2-12.0); Monocyte# 0.44 X10^3/uL; Monocyte% 6.1 % (0-10); NRBC Flagged by Analyzer 0 % (0-5); Neutrophil # 5.79 X10^3/uL (2.7-7.7); Neutrophil % 80.1 % (47-70); Platelet Count 187 K/mm3 (150-450); RBC Distribution Width CV 12.6 % (11.6-14.6); RBC Distribution Width SD 38.2 fl (35.1-43.9); Red Blood Count 4.66 M/mm3 (4.2-5.4); White Blood Count 7.2 K/mm3 (4.4-11.0)
[2021-07-19 08:23] LABS: ALB/GLOB Ratio 0.6 RATIO (0.9-2.4); AST(SGOT) 29 U/L (15-37); Alanine Aminotransfer ALT/SGPT 27 U/L (13-56); Albumin, Serum 2.7 g/dL (3.2-5.0); Alkaline Phosphatase 57 U/L (45-117); Anion Gap 7 (5-15); BUN 8 mg/dL (7-18); BUN/Creat Ratio 12.6 RATIO (10-20); Calcium,Total 8.5 mg/dL (8.5-10.1); Chloride 103 mmol/L (98-107); Creatinine, Serum 0.63 mg/dL (0.55-1.02); EST Glomerular Filtration Rate 110 mL/min (>60); Est Glom Filt Rate - Afr Amer 133 mL/min (>60); Estimated Creatinine Clearance 101.48 ml/min; Globulin 4.5 g/dL (2.2-4.2); Glucose 104 mg/dL (74-106); Potassium 3.6 mmol/L (3.5-5.1); Protein, Total 7.2 g/dL (6.4-8.2); Sodium Level 140 mmol/L (136-145)
--- NOTE | 2021-07-19 08:48 | CPS ---
Pt was placed on 10lpm high flow cannula, saturation to 90%. Pt was also instructed on pursed lip breathing. Pt's nurse aware of change.
[2021-07-19] MEDS: Enoxaparin 40 MG/0.4 ML Syringe SC ×2 (10:04→21:07)
[2021-07-19] MEDS: Acetaminophen 325 MG Tablet 650 MG PO (10:06)
[2021-07-19] MEDS: Cholecalciferol (VIT D3) 25 MCG TABLET (1,000 UNITS) PO (10:06)
[2021-07-19] MEDS: Meloxicam 15 MG Tablet PO (10:06)
[2021-07-19] MEDS: Multivitamins,Ther W-Minerals Tablet 1 TABLET PO (10:06)
[2021-07-19] MEDS: LORazepam 1 MG Tablet PO ×2 (10:07→21:07)
[2021-07-19] MEDS: dexAMETHasone 2 MG TABLET 6 MG PO (10:08)
--- NOTE | 2021-07-19 12:03 | PCM.PN.HOSP ---
Subjective Subjective Patient states she cannot get comfortable, she feels hot, and she has having a lot of issues with anxiety. I did discuss with her the importance of prone lying, using her incentive spirometry and Acapella, and mobility. We did discuss CODE STATUS and she does want to remain full code. She reports she has been on Effexor for for anxiety. Objective Data Objective Data Vital Signs: Vital Signs Temp Pulse Resp BP Pulse Ox 101.4 F H 102 H 20 H 140/79 H 91 07/19/21 09:15 07/19/21 09:15 07/19/21 09:15 07/19/21 09:15 07/19/21 09:15 Oxygen Flow Rate (L/min) 10 Oxygen Delivery Method High Flow Weight: 128.7 kg Body Mass Index (BMI) 48.6 Intake & Output: Intake and Output for Last 24 Hours 07/17/21 07/18/21 07/19/21 23:59 23:59 23:59 Intake Total 850 / 850 Balance 850 / 850 Lab / Micro Data Result Diagrams: 07/19/21 07:50 07/19/21 07:50 Labs: Laboratory Results - last 24 hr 07/18/21 21:30: Procalcitonin 0.05 07/18/21 21:40: WBC 5.4, RBC 4.99, Hgb 13.9, Hct 41.8, MCV 83.8, MCH 27.9, MCHC 33.3, RDW Std Deviation 37.4, RDW Coeff of Donna 12.3, Plt Count 199, MPV 10.3, Immature Gran % (Auto) 0.400, Neut % (Auto) 84.3 H, Lymph % (Auto) 9.2 L, [place] % (Auto) 6.1, Eos % (Auto) 0.0, Baso % (Auto) 0.0, Absolute Neuts (auto) 4.6, Absolute Lymphs (auto) 0.50 L, Nucleated RBC % 0, Differential Comment , Platelet Estimate ADEQUATE, RBC Morphology NORM C+C 07/18/21 21:40: PT 12.1, INR 1.0, APTT 32.0 07/18/21 21:40: Sodium 139, Potassium 3.8, Chloride 104, Carbon Dioxide 27.0, Anion Gap 8, BUN 10, Creatinine 0.60, Estim Creat Clear Calc 106.55, Est GFR (MDRD) Af Amer 140, Est GFR (MDRD) Non-Af 116, BUN/Creatinine Ratio 16.5, Glucose 157 H, Calcium 8.6, Total Bilirubin 0.30, AST 29, ALT 30, Alkaline Phosphatase 64, Total Protein 7.5, Albumin 2.9 L, Globulin 4.6 H, Albumin/Globulin Ratio 0.6 L 07/18/21 21:40: Lactic Acid 0.9 07/18/21 22:00: Urine Color Yellow, Urine Clarity Clear, Urine pH 6.0, Ur Specific [place] 1.015, Urine Protein 100 H, Urine Glucose (UA) Normal, Urine Ketones Negative, Urine Occult Blood 25 H, Urine Nitrite Negative, Urine Bilirubin Negative, Urine Urobilinogen 1 H, Ur Leukocyte Esterase 100 H, Urine RBC 0-5 SEEN, Urine WBC 5-10 SEEN, Ur Squamous Epith Cells 5-10 SEEN, Urine Bacteria 1+, Urine Mucus 0 SEEN 07/19/21 07:50: WBC 7.2, RBC 4.66, Hgb 13.3, Hct 39.2, MCV 84.1, MCH 28.5, MCHC 33.9, RDW Std Deviation 38.2, RDW Coeff of Donna 12.6, Plt Count 187, MPV 10.1, Immature Gran % (Auto) 0.400, Neut % (Auto) 80.1 H, Lymph % (Auto) 13.3 L, [place] % (Auto) 6.1, Eos % (Auto) 0.0, Baso % (Auto) 0.1, Absolute Neuts (auto) 5.8, Absolute Lymphs (auto) 0.96, Nucleated RBC % 0 07/19/21 07:50: Sodium 140, Potassium 3.6, Chloride 103, Carbon Dioxide 30.0, Anion Gap 7, BUN 8, Creatinine 0.63, Estim Creat Clear Calc 101.48, Est GFR (MDRD) Af Amer 133, Est GFR (MDRD) Non-Af 110, BUN/Creatinine Ratio 12.6, Glucose 104, Calcium 8.5, Total Bilirubin 0.30, AST 29, ALT 27, Alkaline Phosphatase 57, Total Protein 7.2, Albumin 2.7 L, Globulin 4.5 H, Albumin/Globulin Ratio 0.6 L Radiography Diagnostic Testing: Radiology Impression Chest X-Ray 07/18/21 21:50 IMPRESSION: Worsening multilobar airspace disease/pneumonia. Electronically Signed: Joe Kirkland MD (Bro[place]) at 22:12 EST , Service support , Chest CTA 07/18/21 23:18 IMPRESSION: 1. No evidence of pulmonary embolus. 2. No aortic dissection or aneurysm. 3. Patchy ground glass infiltrates suggestive of COVID pneumonia. Electronically Signed: Piero Nicholson DO at 23:48 EST Tel [phone], Service support , Physical Exam Narrative Middle-aged morbidly obese white female sitting up in bed, appears quite anxious and short of breath Assessment & Plan Assessment/Plan (1) Acute hypoxemic respiratory failure: (2) COVID-19: PLAN: Acute hypoxic respiratory failure secondary to COVID-19 pneumonia -Symptoms started 07/13/2021 and patient will need quarantine until 08/02/2021 -Recommend vaccination after discharge as patient has not been immunized -Currently requiring heated high flow nasal cannula which has been titrated up since admission to 10 L with oxygen saturations at 90 to 91%. -Check sputum culture -Continue remdesivir day 2 of 5 -Continue Decadron day 2 of 10 -If patient requires air Vo will consult ID for baricitinib -I-S and Acapella ordered--> discussed importance of utilization with patient and instructed in frequency -Encourage prone lying and mobility as able -Tylenol for fever -Patient is high risk for requiring intubation and this was discussed with her today--> she would like to remain full code -If oxygen requirements continued to increase will consider pulmonary consultation Anxiety -Patient has been on Effexor we will restart this -As needed Ativan as I believe her anxiety is contributing significantly to her respiratory distress Morbid obesity -BMI 48.7 -Complicates overall treatment, prognosis, and outcomes -Creases risk for intubation with COVID-19 DVT prophylaxis -Lovenox 40 mg subcu twice daily -SCDs CODE STATUS -Full code verified today with the patient
[2021-07-19] MEDS: INHALER, ASSIST DEVICES 1 EACH SPACER INHALATION (12:54)
[2021-07-19] MEDS: MELATONIN 3 MG TABLET PO (23:38)
[2021-07-20] VITALS (29 sets, daily range): BP systolic 97–128; BP diastolic 51–78; PULSE 64–105; RESP 12–50; TEMP 36.4–37.3; O2SAT 88–97
[2021-07-20] MEDS: Sodium Chloride 0.65% 1 SPRAY SPRAY.BTL NASAL ×2 (00:11→16:21)
[2021-07-20 07:18] LABS: Absolute Lymphocyte Count 1.18 X10^3/uL (0.83-4.51); Absolute Neutrophil Count 7.8 X10^3/uL (2.0-7.7); Hematocrit 37.2 % (37-47); Hemoglobin 12.7 g/dL (12.0-15.0); Lymphocyte # 1.18 X10^3/ul (0.83-4.51); Lymphocyte % 12.2 % (19-41); Mean Corp Hgb Conc 34.1 g/dL (32-36); Mean Corpuscular Hgb 28.5 pg (27.0-32.0); Mean Corpuscular Volume 83.6 fL (81-99); Mean Platelet Vol. 10.2 fl (6.2-12.0); Monocyte# 0.64 X10^3/uL; Monocyte% 6.6 % (0-10); NRBC Flagged by Analyzer 0 % (0-5); Neutrophil # 7.79 X10^3/uL (2.7-7.7); Neutrophil % 80.7 % (47-70); Platelet Count 212 K/mm3 (150-450); RBC Distribution Width CV 12.6 % (11.6-14.6); RBC Distribution Width SD 38.6 fl (35.1-43.9); Red Blood Count 4.45 M/mm3 (4.2-5.4); White Blood Count 9.7 K/mm3 (4.4-11.0)
[2021-07-20 07:46] LABS: ALB/GLOB Ratio 0.5 RATIO (0.9-2.4); AST(SGOT) 24 U/L (15-37); Alanine Aminotransfer ALT/SGPT 23 U/L (13-56); Albumin, Serum 2.3 g/dL (3.2-5.0); Alkaline Phosphatase 50 U/L (45-117); Anion Gap 8 (5-15); BUN 11 mg/dL (7-18); BUN/Creat Ratio 24.3 RATIO (10-20); Calcium,Total 8.2 mg/dL (8.5-10.1); Chloride 104 mmol/L (98-107); Creatinine, Serum 0.45 mg/dL (0.55-1.02); EST Glomerular Filtration Rate 162 mL/min (>60); Est Glom Filt Rate - Afr Amer 196 mL/min (>60); Estimated Creatinine Clearance 142.07 ml/min; Globulin 4.3 g/dL (2.2-4.2); Glucose 96 mg/dL (74-106); Potassium 3.5 mmol/L (3.5-5.1); Protein, Total 6.6 g/dL (6.4-8.2); Sodium Level 138 mmol/L (136-145)
--- NOTE | 2021-07-20 08:54 | EX.PCM.CONCC ---
Assessment & Plan Assessment/Plan (1) Acute hypoxemic respiratory failure: (2) COVID-19: PLAN: RECOMMENDATIONS: 1. Continue BiPAP and wean FiO2 for saturations greater than 90%. 2. Continue remdesivir to complete 5-day treatment course. Continue to monitor liver and renal function. 3. Continue Decadron to complete 10 days of therapy. 4. Consider initiation of antimicrobials given rapid respiratory decline. 5. Infectious diseases consultation for consideration of baricitinib. 6. Continue prophylactic Lovenox. 7. Patient to remain n.p.o. for now. 8. Awake prone positioning was encouraged. IMPRESSIONS: 1. Acute hypoxemic respiratory failure secondary to COVID-19 pneumonia The patient presented to the hospital with progressive Covid symptoms which initially began on the . She has been placed on remdesivir and Decadron. CTA chest showed no evidence for PE. Therefore, prophylactic Lovenox will be continued. Infectious diseases has been consulted for the initiation of baricitinib. The patient's oxygenation status has worsened over the last 24 hours. She is now on continuous BiPAP support, which will be continued as tolerated. Goal to wean FiO2 to maintain oxygen saturations at or above 90%. Awake prone positioning was encouraged. Consider initiating antimicrobials given rapid decline in respiratory status. The patient is at high risk for intubation in the next 24 to 48 hours. 2. Morbid obesity/anxiety Complicates care, management, recovery and prognosis. Continue as needed anxiolytic therapy per hospitalist. TIME: 37 minutes of critical care time, independent of procedures, was spent addressing the patient's acute hypoxemic respiratory failure secondary to COVID-19 pneumonia, review of all data and collaboration with the care team. HPI Consult Data Date of Consult: 07/20/21 HPI Narrative Reason for Consultation: Acute hypoxemic respiratory failure secondary to COVID-19 pneumonia HPI Narrative: The patient is a 41-year-old female, with a history as outlined below, who presented to the emergency department on July 18 with worsening dyspnea and hypoxemia. The patient has been evaluated previously on July 16 in the emergency department with shortness of breath and fevers. The patient was discharged home at that time on supplemental oxygen at 2 L/min along with a prescription for Decadron. The patient's symptoms initially began on Friday the . She subsequently tested positive for COVID-19 on July 14. The patient is unvaccinated. She is a current daily smoker. On presentation to the emergency department, the patient was noted to be afebrile hemodynamically stable. She was initially documented to be saturating 90% on 3 L/min. Initial laboratory work-up was grossly unremarkable. CTA chest showed no evidence for pulmonary embolism. Diffuse bilateral groundglass changes were noted bilaterally. The patient was initially placed on remdesivir, Decadron twice daily Lovenox. She was admitted to the progressive care unit for further management. However, over the last 24 hours, the patient's oxygenation requirement has increased. She is currently on maximum support from a heated high flow perspective. Due to her need to be transitioned to noninvasive positive pressure ventilatory support, the patient was transferred to the medical intensive care unit. [facility] Medical History bunion removal d&c Morbid obesity with BMI of 45.0-49.9, adult Smoker Home Medications hydroxyzine pamoate 25 mg PO TID PRN PRN #15 cap 04/21/17 [Rx Last Taken Unknown] acetaminophen 325 mg capsule 325 mg PO ONCE PRN 10/16/20 [History Last Taken Unknown] cholecalciferol (vitamin D3) 25 mcg (1,000 unit) capsule 25 mcg PO DAILY 10/16/20 [History Last Taken 07/18/21 08:00] ibuprofen 200 mg capsule 200 mg PO Q6H PRN 10/16/20 [History Last Taken Unknown] meloxicam 15 mg tablet 15 mg PO DAILY #30 tab 10/16/20 [Rx Last Taken 07/18/21 08:00] mirabegron 50 mg tablet,extended release 24 hr ea PO 10/16/20 [History Last Taken Unknown] multivitamin 1 tab PO DAILY 10/16/20 [History Last Taken Unknown] multivitamin with minerals 1 tab PO DAILY 10/16/20 [History Last Taken 07/18/21 08:00] topiramate 25 mg sprinkle capsule ea PO 10/16/20 [History Last Taken Unknown] venlafaxine 37.5 mg capsule,extended release 24 hr ea PO 10/16/20 [History Last Taken Unknown] albuterol sulfate [Ventolin HFA] 2 puff INHALATION Q4H PRN PRN #1 inhaler 07/16/21 [Rx Last Taken 07/18/21 22:00] dexamethasone [Decadron] 6 mg PO DAILY #10 tab 07/16/21 [Rx Last Taken 07/18/21 08:00] Allergy/AdvReac Type Severity Reaction Status Date / Time codeine Allergy Unknown Verified 07/18/21 21:19 Family History Mother Ovarian cancer Father CVA (cerebral vascular accident) Surgical History History of tonsillectomy Social History household members: children housing: house Smoking Status: Current every day smoker tobacco type: cigarettes alcohol intake: current alcohol intake frequency: 0-2 drinks per day what type of physical activity do you participate in: none do you feel safe at home: Yes ROS Constitutional Constitutional: Reports chills and fatigue Eyes Eyes: Denies blurry vision or change in vision ENT HEENT: Denies dysphagia, nasal congestion or nasal discharge Cardiovascular Cardiovascular: Reports dyspnea Respiratory/Chest Respiratory/Chest: Reports cough and dyspnea Gastrointestinal Gastrointestinal: Denies abdominal pain, diarrhea, nausea or vomiting Genitourinary Genitourinary: Denies difficulty urinating Musculoskeletal Musculoskeletal: Reports myalgias; Denies arthralgias or back pain Integumentary Integumentary: Denies lesions, rash or skin ulcer Neurologic Neurologic: Denies abnormal gait or abnormal speech Psychiatric Psychiatric: Reports anxiety Endocrine Endocrinology: Reports fatigue Hematologic/Lymphatic Hematologic/Lymphatic: Denies easy bleeding or easy bruising Physical Exam Const General Appearance: ill appearing and on BiPAP Nutritional Appearance: morbidly obese HEENT normocephalic and head/scalp atraumatic Eyes PERRL, EOMs intact bilaterally and conjunctivae normal Neck supple General: trachea midline Chest inspection of chest normal Resp Effort and Inspection: tachypneic Auscultation: diminished lung sounds; Negative for rales, rhonchi or wheezes Cardio regular rate and regular rhythm GI normal to inspection, nondistended, normoactive bowel sounds Extremity no clubbing, cyanosis or edema Skin no rashes or lesions noted Neuro CN's II-XII intact bilaterally, moves all extremities and no focal motor deficits Psych Mood & Affect: anxious Lab / Micro Data Result Diagrams: 07/20/21 06:50 07/20/21 06:50 Labs: Laboratory Results - last 24 hr 07/20/21 06:50: WBC 9.7, RBC 4.45, Hgb 12.7, Hct 37.2, MCV 83.6, MCH 28.5, MCHC 34.1, RDW Std Deviation 38.6, RDW Coeff of Donna 12.6, Plt Count 212, MPV 10.2, Immature Gran % (Auto) 0.500, Neut % (Auto) 80.7 H, Lymph % (Auto) 12.2 L, [place] % (Auto) 6.6, Eos % (Auto) 0.0, Baso % (Auto) 0.0, Absolute Neuts (auto) 7.8 H, Absolute Lymphs (auto) 1.18, Nucleated RBC % 0 07/20/21 06:50: Sodium 138, Potassium 3.5, Chloride 104, Carbon Dioxide 26.0, Anion Gap 8, BUN 11, Creatinine 0.45 L, Estim Creat Clear Calc 142.07, Est GFR (MDRD) Af Amer 196, Est GFR (MDRD) Non-Af 162, BUN/Creatinine Ratio 24.3 H, Glucose 96, Calcium 8.2 L, Total Bilirubin 0.20, AST 24, ALT 23, Alkaline Phosphatase 50, Total Protein 6.6, Albumin 2.3 L, Globulin 4.3 H, Albumin/Globulin Ratio 0.5 L Charges/Coding Procedures Hospitalists Procedures: 15871 Critial Care 1st Hr
[2021-07-20] MEDS: Ascorbic Acid 500 MG Tablet 1000 MG PO (10:30)
[2021-07-20] MEDS: dexAMETHasone 2 MG TABLET 6 MG PO (10:30)
[2021-07-20] MEDS: Meloxicam 15 MG Tablet PO (10:30)
[2021-07-20] MEDS: Cholecalciferol (VIT D3) 25 MCG TABLET (1,000 UNITS) PO (10:30)
[2021-07-20] MEDS: Venlafaxine XR 37.5 MG Capsule PO (10:30)
[2021-07-20] MEDS: Enoxaparin 40 MG/0.4 ML Syringe SC ×2 (10:31→20:20)
[2021-07-20] MEDS: 0.9% Saline Lock 10 ML Syringe IV (10:39)
--- NOTE | 2021-07-20 10:49 | PCM.CONS.GEN ---
Assessment & Plan Assessment/Plan (1) COVID-19: PLAN: Sx started 07/11/21. Unvaccinated. Isolate for 20 days from 07/11. Recommended her children get tested and quarantine. Recommend she get vaccinated once out of hospital and out of iso. Cont dex and remdesivir. CRP 108. Reviewed EUA and risks/benefits, we agree to start baricitinib. CT neg for PE. Will follow, thank you. (2) Acute hypoxemic respiratory failure: HPI Consult Data Date of Consult: 07/20/21 HPI Narrative HPI Narrative: CELI BE, is a 41 F who presented 07/18 with sx since 07/11, c/o cough with green sputum, fever, chills, headache, sore throat, change in taste/smell, dyspnea, fatigue. Unvaccinated. Lives with her children, asymptomatic, not been tested. Came to ED, now on bipap, dex, remdesivir. Full ROS performed and neg except as noted above. PFSH Medical History bunion removal d&c Morbid obesity with BMI of 45.0-49.9, adult Smoker Home Medications hydroxyzine pamoate 25 mg PO TID PRN PRN #15 cap 04/21/17 [Rx Last Taken Unknown] acetaminophen 325 mg capsule 325 mg PO ONCE PRN 10/16/20 [History Last Taken Unknown] cholecalciferol (vitamin D3) 25 mcg (1,000 unit) capsule 25 mcg PO DAILY 10/16/20 [History Last Taken 07/18/21 08:00] ibuprofen 200 mg capsule 200 mg PO Q6H PRN 10/16/20 [History Last Taken Unknown] meloxicam 15 mg tablet 15 mg PO DAILY #30 tab 10/16/20 [Rx Last Taken 07/18/21 08:00] mirabegron 50 mg tablet,extended release 24 hr ea PO 10/16/20 [History Last Taken Unknown] multivitamin 1 tab PO DAILY 10/16/20 [History Last Taken Unknown] multivitamin with minerals 1 tab PO DAILY 10/16/20 [History Last Taken 07/18/21 08:00] topiramate 25 mg sprinkle capsule ea PO 10/16/20 [History Last Taken Unknown] venlafaxine 37.5 mg capsule,extended release 24 hr ea PO 10/16/20 [History Last Taken Unknown] albuterol sulfate [Ventolin HFA] 2 puff INHALATION Q4H PRN PRN #1 inhaler 07/16/21 [Rx Last Taken 07/18/21 22:00] dexamethasone [Decadron] 6 mg PO DAILY #10 tab 07/16/21 [Rx Last Taken 07/18/21 08:00] Allergy/AdvReac Type Severity Reaction Status Date / Time codeine Allergy Unknown Verified 07/18/21 21:19 Family History Mother Ovarian cancer Father CVA (cerebral vascular accident) Surgical History History of tonsillectomy Social History household members: children housing: house Smoking Status: Current every day smoker tobacco type: cigarettes alcohol intake: current alcohol intake frequency: 0-2 drinks per day what type of physical activity do you participate in: none do you feel safe at home: Yes Physical Exam Const alert and oriented x3 General Appearance: cooperative Exam Limitations: no limitations HEENT normocephalic and head/scalp atraumatic Eyes PERRL and EOMs intact bilaterally Neck supple and No nodes Resp Auscultation: diminished lung sounds Cardio regular rate and regular rhythm GI normal to inspection, nondistended, normoactive bowel sounds Extremity no clubbing, cyanosis or edema Skin no rashes or lesions noted Neuro CN's II-XII intact bilaterally Lab / Micro Data Result Diagrams: 07/20/21 06:50 07/20/21 06:50 Labs: Laboratory Results - last 24 hr 07/20/21 06:50: WBC 9.7, RBC 4.45, Hgb 12.7, Hct 37.2, MCV 83.6, MCH 28.5, MCHC 34.1, RDW Std Deviation 38.6, RDW Coeff of Donna 12.6, Plt Count 212, MPV 10.2, Immature Gran % (Auto) 0.500, Neut % (Auto) 80.7 H, Lymph % (Auto) 12.2 L, [place] % (Auto) 6.6, Eos % (Auto) 0.0, Baso % (Auto) 0.0, Absolute Neuts (auto) 7.8 H, Absolute Lymphs (auto) 1.18, Nucleated RBC % 0 07/20/21 06:50: Sodium 138, Potassium 3.5, Chloride 104, Carbon Dioxide 26.0, Anion Gap 8, BUN 11, Creatinine 0.45 L, Estim Creat Clear Calc 142.07, Est GFR (MDRD) Af Amer 196, Est GFR (MDRD) Non-Af 162, BUN/Creatinine Ratio 24.3 H, Glucose 96, Calcium 8.2 L, Total Bilirubin 0.20, AST 24, ALT 23, Alkaline Phosphatase 50, Total Protein 6.6, Albumin 2.3 L, Globulin 4.3 H, Albumin/Globulin Ratio 0.5 L 07/20/21 06:50: C-React Prot Ext Range 108.00 H Micro: Microbiology 07/19/21 16:55 Sputum, Expectorated/Coughed Gram Stain - Final
--- NOTE | 2021-07-20 11:10 | CASEMGMT ---
[employer] SAL[employer] ASSISTANT CM to room to meet with patient for initial transition planning/care coordination assessment. RN JOIE introduced self and role at [facility]. Pt voices understanding and consents to assessment at this time. Pt sitting up in recliner chair w/BIPAP in place. Pt is A/O at this time and answers all questions appropriately. Care providers, pharmacy, and demographics verified/updated at this time. Pt had COVID testing completed @ [facility] in [place] PCP: Dr Kate Specialists:none Preferred Pharmacy: [facility] Retail Insurance: [employer] Prescription Benefit: Yes Living Will/HPOA: Pt does not currently have LW/HCPOA and declines info at this time. LNOK: Father, Deny Smith Living Arrangements: Lives in 2-story apt w/her 2 children: 10 and 6-yr old. Has bathroom and bedroom has 2nd floor. Pt's aunt is taking care of them while pt is hospitalized. Pt independent @ baseline. Family able to bring groceries to their home, if needed. Transportation: Pt states drives self and states no transportation concerns at this time. DME: States has the following DME: O2 through [facility] @ 2l/m continuous. Pt has generator and portable O2 tank, which is @ [facility]. Pt states no need for further DME at this time. HHC/SNF: No hx of either. Pt wishes to return home when medically ready. CM to follow for any increase in home oxygen needs and any further discharge planning/needs. Pt voices no further concerns/needs at this time. Advised pt to ask for CM if any further questions/concerns/needs arise. Voices understanding. PLAN: Home. Follow for any increase in O2 needs @ discharge. Marry BULLOCKN YONATAN SALTER
[2021-07-20] MEDS: LORazepam 1 MG Tablet PO ×2 (12:44→22:39)
--- NOTE | 2021-07-20 15:52 | PN.HOSP_ITS ---
Subjective Subjective Patient with increasing oxygen demand over the last 24 hours and is gone from 7 L of heated high flow to requiring air Vo. I did transfer to the ICU at that time with concern that she may require intubation in the future. She did have extreme rapid deterioration. Upon my evaluation she looked comfortable but did complain of being cold so she was given a blanket and covered. Objective Data Objective Data Vital Signs: Vital Signs Temp Pulse Resp BP Pulse Ox 97.7 F L 94 32 H 104/56 L 95 07/20/21 12:00 07/20/21 15:33 07/20/21 14:00 07/20/21 14:00 07/20/21 14:00 Oxygen Flow Rate (L/min) 60 Oxygen Delivery Method Bi-pap Weight: 128.7 kg Body Mass Index (BMI) 48.6 Intake & Output: Intake and Output for Last 24 Hours 07/18/21 07/19/21 07/20/21 23:59 23:59 23:59 Intake Total 1940 / 1940 202.75 / 202.75 Output Total 300 / 300 Balance 1640 / 1640 202.75 / 202.75 Lab / Micro Data Result Diagrams: 07/20/21 06:50 07/20/21 06:50 Labs: Laboratory Results - last 24 hr 07/20/21 06:50: WBC 9.7, RBC 4.45, Hgb 12.7, Hct 37.2, MCV 83.6, MCH 28.5, MCHC 34.1, RDW Std Deviation 38.6, RDW Coeff of Donna 12.6, Plt Count 212, MPV 10.2, Immature Gran % (Auto) 0.500, Neut % (Auto) 80.7 H, Lymph % (Auto) 12.2 L, [place] % (Auto) 6.6, Eos % (Auto) 0.0, Baso % (Auto) 0.0, Absolute Neuts (auto) 7.8 H, Absolute Lymphs (auto) 1.18, Nucleated RBC % 0 07/20/21 06:50: Sodium 138, Potassium 3.5, Chloride 104, Carbon Dioxide 26.0, Anion Gap 8, BUN 11, Creatinine 0.45 L, Estim Creat Clear Calc 142.07, Est GFR (MDRD) Af Amer 196, Est GFR (MDRD) Non-Af 162, BUN/Creatinine Ratio 24.3 H, Glucose 96, Calcium 8.2 L, Total Bilirubin 0.20, AST 24, ALT 23, Alkaline Phosphatase 50, Total Protein 6.6, Albumin 2.3 L, Globulin 4.3 H, Albumin/Globulin Ratio 0.5 L 07/20/21 06:50: C-React Prot Ext Range 108.00 H Micro: Microbiology 07/19/21 16:55 Sputum, Expectorated/Coughed Gram Stain - Final 07/19/21 16:55 Sputum, Expectorated/Coughed Respiratory Culture - Pr eliminary Alpha Hemolytic Streptococcus 07/18/21 22:00 Urine, Clean Catch Urine Culture - Final Mixed Gram Pos & Gram Neg Org Assessment & Plan Assessment/Plan (1) Acute hypoxemic respiratory failure: (2) COVID-19: PLAN: Acute hypoxic respiratory failure secondary to COVID-19 pneumonia -Symptoms started 07/13/2021 and patient will need quarantine until 08/02/2021 -Recommend vaccination after discharge as patient has not been immunized -Had been titrated up to air Vo and now on BiPAP at 65% with an oxygen saturati on of 93 to 94% -Patient does have alpha hemolytic strep on sputum culture -Start ceftriaxone -Continue remdesivir day 3 of 5 -Continue Decadron day 3 of 10 -Baricitinib dose 1 of 14 initiated today by infectious disease -I-S and Acapella ordered--> discussed importance of utilization with patient and instructed in frequency -Encourage prone lying and mobility as able -As needed diuresis to maintain euvolemia -Tylenol for fever -CTA on admission was negative for pulmonary embolus -Patient is high risk for requiring intubation and this was discussed with her today--> she would like to remain full code -Consultation to pulmonary and ID given worsening Covid infection Alpha hemolytic strep pneumonia -Other identification pending -Start ceftriaxone day 1 of 7 Anxiety -Patient has been on Effexor we will restart this -As needed Ativan as I believe her anxiety is contributing significantly to her respiratory distress Morbid obesity -BMI 48.7 -Complicates overall treatment, prognosis, and outcomes -Creases risk for intubation with COVID-19 DVT prophylaxis -Lovenox 40 mg subcu twice daily -SCDs CODE STATUS -Full code verified today with the patient Charges/Coding Visit Charges Inpatient E&M: 21332 Subs Hosp L2
[2021-07-20] MEDS: guaiFENesin 1,200 MG Tablet 1200 MG PO (22:39)
[2021-07-21] VITALS (28 sets, daily range): BP systolic 88–132; BP diastolic 59–110; PULSE 58–93; RESP 12–36; TEMP 36.4–37.3; O2SAT 84–97
[2021-07-21 04:58] LABS: Absolute Lymphocyte Count 1.09 X10^3/uL (0.83-4.51); Absolute Neutrophil Count 5.3 X10^3/uL (2.0-7.7); Basophil# 0.01 X10^3/uL; Basophil% 0.1 % (0-1); Hematocrit 36.6 % (37-47); Hemoglobin 12.6 g/dL (12.0-15.0); Lymphocyte # 1.09 X10^3/ul (0.83-4.51); Mean Corp Hgb Conc 34.4 g/dL (32-36); Mean Corpuscular Hgb 28.6 pg (27.0-32.0); Mean Corpuscular Volume 83.2 fL (81-99); Mean Platelet Vol. 10.1 fl (6.2-12.0); Monocyte# 0.79 X10^3/uL; Monocyte% 10.9 % (0-10); NRBC Flagged by Analyzer 0 % (0-5); Neutrophil # 5.31 X10^3/uL (2.7-7.7); POSITIVE MORPHOLOGY YES; Platelet Count 261 K/mm3 (150-450); RBC Distribution Width CV 12.4 % (11.6-14.6); RBC Distribution Width SD 37.9 fl (35.1-43.9); White Blood Count 7.3 K/mm3 (4.4-11.0)
[2021-07-21 05:00] LABS: Differential Indicated SCAN CRITERIA MET
[2021-07-21 05:31] LABS: Differential Comment SCANNED
[2021-07-21 05:48] LABS: ALB/GLOB Ratio 0.5 RATIO (0.9-2.4); AST(SGOT) 18 U/L (15-37); Alanine Aminotransfer ALT/SGPT 23 U/L (13-56); Albumin, Serum 2.2 g/dL (3.2-5.0); Alkaline Phosphatase 51 U/L (45-117); Anion Gap 8 (5-15); BUN 15 mg/dL (7-18); BUN/Creat Ratio 33.7 RATIO (10-20); Chloride 105 mmol/L (98-107); Creatinine, Serum 0.44 mg/dL (0.55-1.02); EST Glomerular Filtration Rate 165 mL/min (>60); Est Glom Filt Rate - Afr Amer 200 mL/min (>60); Globulin 4.4 g/dL (2.2-4.2); Glucose 108 mg/dL (74-106); Potassium 3.8 mmol/L (3.5-5.1); Protein, Total 6.6 g/dL (6.4-8.2); Sodium Level 139 mmol/L (136-145)
--- NOTE | 2021-07-21 07:03 | PN.CC_ITS ---
Assessment & Plan Assessment/Plan (1) Acute hypoxemic respiratory failure: (2) COVID-19: PLAN: RECOMMENDATIONS: 1. Continue BiPAP and wean FiO2 for saturations greater than 90%. 2. Continue remdesivir (07/22/2021) and baricitinib (08/02/2021). Continue to monitor liver and renal function. 3. Continue Decadron to complete 10 days of therapy. 4. Sputum culture suggestive of pneumococcus. On ceftriaxone 5. Possible p.o. diet if able to tolerate Airvo during the day 6. Encourage incentive spirometer, Acapella and prone positioning as tolerated IMPRESSIONS: 1. Acute hypoxemic respiratory failure secondary to COVID-19/possible pne umococcus pneumonia The patient presented to the hospital with progressive Covid symptoms which initially began on the . She has been placed on remdesivir and Decadron. CTA chest showed no evidence for PE. Therefore, prophylactic Lovenox will be continued. Infectious diseases has initiated baricitinib. The patient's oxygenation status has stabilized over the last 24 hours. She is now on continuous BiPAP support, which will be continued as tolerated. Goal to wean FiO2 to maintain oxygen saturations at or above 90%. Awake prone positioning was encouraged. Patient appears to have a component of pneumococcal pneumonia and was started on antimicrobials. Status appears to be slightly improved, but still at high risk for need for intubation in the next 24 to 48 hours. 2. Morbid obesity/anxiety Complicates care, management, recovery and prognosis. Continue as needed anxiolytic therapy per hospitalist. TIME: 34 minutes of critical care time, independent of procedures, was spent addressing the patient's acute hypoxemic respiratory failure secondary to COVID- 19 pneumonia, review of all data and collaboration with the care team. Subjective Subjective The patient did okay overnight. The patient did sleep on BiPAP and subjectively feels that she breathes better on BiPAP. Patient is not reporting any chest pain, nausea or vomiting. Objective Data Objective Data Vital Signs: Vital Signs Temp Pulse Resp BP Pulse Ox 36.6 C 63 34 H 120/65 92 07/21/21 00:00 07/21/21 06:00 07/21/21 05:38 07/21/21 06:00 07/21/21 06:00 Oxygen Flow Rate (L/min) 60 Oxygen Delivery Method Bi-pap Weight: 132.903 kg Body Mass Index (BMI) 48.6 Intake & Output: Intake and Output for Last 24 Hours 07/19/21 07/20/21 07/21/21 23:59 23:59 23:59 Intake Total 1939 / 0 692.75 / 700.75 Output Total 300 / 300 300 / 300 350 / 350 Balance 1640 / 1640 392.75 / 400.75 -336 / -336 Lab / Micro Data Result Diagrams: 07/21/21 04:45 07/21/21 04:45 Labs: Laboratory Results - last 24 hr 07/20/21 06:50: WBC 9.7, RBC 4.45, Hgb 12.7, Hct 37.2, MCV 83.6, MCH 28.5, MCHC 34.1, RDW Std Deviation 38.6, RDW Coeff of Donna 12.6, Plt Count 212, MPV 10.2, Immature Gran % (Auto) 0.500, Neut % (Auto) 80.7 H, Lymph % (Auto) 12.2 L, [place] % (Auto) 6.6, Eos % (Auto) 0.0, Baso % (Auto) 0.0, Absolute Neuts (auto) 7.8 H, Absolute Lymphs (auto) 1.18, Nucleated RBC % 0 07/20/21 06:50: Sodium 138, Potassium 3.5, Chloride 104, Carbon Dioxide 26.0, Anion Gap 8, BUN 11, Creatinine 0.45 L, Estim Creat Clear Calc 142.07, Est GFR (MDRD) Af Amer 196, Est GFR (MDRD) Non-Af 162, BUN/Creatinine Ratio 24.3 H, Glucose 96, Calcium 8.2 L, Total Bilirubin 0.20, AST 24, ALT 23, Alkaline Phosphatase 50, Total Protein 6.6, Albumin 2.3 L, Globulin 4.3 H, Albumin/Globulin Ratio 0.5 L 07/20/21 06:50: C-React Prot Ext Range 108.00 H 07/21/21 04:45: WBC 7.3, RBC 4.40, Hgb 12.6, Hct 36.6 L, MCV 83.2, MCH 28.6, MCHC 34.4, RDW Std Deviation 37.9, RDW Coeff of Donna 12.4, Plt Count 261, MPV 10.1, Immature Gran % (Auto) 1.000 H, Neut % (Auto) 73.0 H, Lymph % (Auto) 15.0 L, [place] % (Auto) 10.9 H, Eos % (Auto) 0.0, Baso % (Auto) 0.1, Absolute Neuts (auto) 5.3, Absolute Lymphs (auto) 1.09, Nucleated RBC % 0, Differential Comment SCANNED 07/21/21 04:45: Sodium 139, Potassium 3.8, Chloride 105, Carbon Dioxide 26.0, Anion Gap 8, BUN 15, Creatinine 0.44 L, Estim Creat Clear Calc 145.30, Est GFR (MDRD) Af Amer 200, Est GFR (MDRD) Non-Af 165, BUN/Creatinine Ratio 33.7 H, Glucose 108 H, Calcium 8.0 L, Total Bilirubin 0.30, AST 18, ALT 23, Alkaline Phosphatase 51, Total Protein 6.6, Albumin 2.2 L, Globulin 4.4 H, Albumin/Globulin Ratio 0.5 L Micro: Microbiology 07/18/21 21:53 Blood Culture (Wb) - Anticubital Right Blood Culture - Preliminary No growth in 48 hours. 07/18/21 21:50 Blood Culture (Wb) - Anticubital Left Blood Culture - Preliminary No growth in 48 hours. 07/19/21 16:55 Sputum, Expectorated/Coughed Gram Stain - Final 07/19/21 16:55 Sputum, Expectorated/Coughed Respiratory Culture - Preliminary Alpha Hemolytic Streptococcus 07/18/21 22:00 Urine, Clean Catch Urine Culture - Final Mixed Gram Pos & Gram Neg Org Physical Exam Const General Appearance: ill appearing and on BiPAP Nutritional Appearance: morbidly obese HEENT normocephalic and head/scalp atraumatic Eyes PERRL, EOMs intact bilaterally and conjunctivae normal Neck supple General: trachea midline Chest inspection of chest normal Chest: symmetrical chest wall rise; Negative for crepitus Resp Effort and Inspection: tachypneic Auscultation: diminished lung sounds; Negative for rales, rhonchi or wheezes Cardio regular rate and regular rhythm GI normal to inspection, nondistended, normoactive bowel sounds Extremity no clubbing, cyanosis or edema Skin no rashes or lesions noted Neuro CN's II-XII intact bilaterally, moves all extremities and no focal motor defici ts Psych Mood & Affect: anxious Charges/Coding Procedures Hospitalists Procedures: 98233 Critial Care 1st Hr
[2021-07-21] MEDS: LORazepam 1 MG Tablet PO ×2 (09:23→20:59)
[2021-07-21] MEDS: Meloxicam 15 MG Tablet PO (09:38)
[2021-07-21] MEDS: Cholecalciferol (VIT D3) 25 MCG TABLET (1,000 UNITS) PO (09:39)
[2021-07-21] MEDS: Multivitamins,Ther W-Minerals Tablet 1 TABLET PO (09:39)
[2021-07-21] MEDS: Ascorbic Acid 500 MG Tablet 1000 MG PO ×2 (09:39→16:50)
[2021-07-21] MEDS: Venlafaxine XR 37.5 MG Capsule PO (09:39)
[2021-07-21] MEDS: dexAMETHasone 2 MG TABLET 6 MG PO (09:39)
[2021-07-21] MEDS: Acetaminophen 325 MG Tablet 650 MG PO ×2 (09:40→20:58)
[2021-07-21] MEDS: Benzonatate 100 MG Capsule PO (09:40)
[2021-07-21] MEDS: Enoxaparin 40 MG/0.4 ML Syringe SC ×2 (09:40→20:59)
[2021-07-21] MEDS: guaiFENesin 1,200 MG Tablet 1200 MG PO ×2 (09:40→20:59)
[2021-07-21] MEDS: 0.9% Saline Lock 10 ML Syringe IV ×3 (09:41→20:57)
--- NOTE | 2021-07-21 11:50 | PCM.PN.HOSP ---
Subjective Subjective Patient has been able to be weaned from BiPAP to air Vo this morning. She is currently on 60 L/min with an FiO2 of 82% oxygen saturations are 91 to 93%. She has been very compliant with incentive spirometer, Acapella, and mobility. She has no acute complaints today. Per discussion with nursing the Ativan has been very effective in helping keep her calm. She does get very anxious with coughing. Objective Data Objective Data Vital Signs: Vital Signs Temp Pulse Resp BP Pulse Ox 97.8 F 77 22 H 117/78 93 07/21/21 08:00 07/21/21 11:00 07/21/21 11:00 07/21/21 11:00 07/21/21 11:00 Oxygen Flow Rate (L/min) 60 Oxygen Delivery Method Airvo Weight: 132.903 kg Body Mass Index (BMI) 48.6 Intake & Output: Intake and Output for Last 24 Hours 07/19/21 07/20/21 07/21/21 23:59 23:59 23:59 Intake Total 1940 / 1940 692.75 / 700.75 14 Output Total 300 / 300 300 / 300 350 / 350 Balance 1640 / 1640 392.75 / 400.75 -336 / -336 Lab / Micro Data Result Diagrams: 07/21/21 04:45 07/21/21 04:45 Labs: Laboratory Results - last 24 hr 07/21/21 04:45: WBC 7.3, RBC 4.40, Hgb 12.6, Hct 36.6 L, MCV 83.2, MCH 28.6, MCHC 34.4, RDW Std Deviation 37.9, RDW Coeff of Donna 12.4, Plt Count 261, MPV 10.1, Immature Gran % (Auto) 1.000 H, Neut % (Auto) 73.0 H, Lymph % (Auto) 15.0 L, [place] % (Auto) 10.9 H, Eos % (Auto) 0.0, Baso % (Auto) 0.1, Absolute Neuts (auto) 5.3, Absolute Lymphs (auto) 1.09, Nucleated RBC % 0, Differential Comment SCANNED 07/21/21 04:45: Sodium 139, Potassium 3.8, Chloride 105, Carbon Dioxide 26.0, Anion Gap 8, BUN 15, Creatinine 0.44 L, Estim Creat Clear Calc 145.30, Est GFR (MDRD) Af Amer 200, Est GFR (MDRD) Non-Af 165, BUN/Creatinine Ratio 33.7 H, Glucose 108 H, Calcium 8.0 L, Total Bilirubin 0.30, AST 18, ALT 23, Alkaline Phosphatase 51, Total Protein 6.6, Albumin 2.2 L, Globulin 4.4 H, Albumin/Globulin Ratio 0.5 L Micro: Microbiology 07/19/21 16:55 Sputum, Expectorated/Coughed Gram Stain - Final 07/19/21 16:55 Sputum, Expectorated/Coughed Respiratory Culture - Preliminary Streptococcus pneumoniae 07/18/21 21:53 Blood Culture (Wb) - Anticubital Right Blood Culture - Preliminary No growth in 48 hours. 07/18/21 21:50 Blood Culture (Wb) - Anticubital Left Blood Culture - Preliminary No growth in 48 hours. 07/18/21 22:00 Urine, Clean Catch Urine Culture - Final Mixed Gram Pos & Gram Neg Org Physical Exam Const alert, oriented x3 and no apparent distress Constitutional Narrative: Morbidly obese white female sitting up in a chair at the bedside, on air Vo and appears comfortable at this time, nontoxic Exam Limitations: no limitations Nutritional Appearance: morbidly obese HEENT head/scalp atraumatic and moist oral mucous membranes HEENT Narrative: No thrush, Mallampati 4 Head and Scalp: normocephalic Resp normal respiratory effort, no retractions and no use of accessory muscles Resp Narrative: Diffusely diminished with few basilar crackles Auscultation: crackles; Negative for rales, rhonchi or wheezes Cardio regular rate, regular rhythm, S1 normal heart sound, S2 normal heart sound, no murmurs, no rub, no gallops, no clicks and no JVD GI normal to inspection, nondistended, normoactive bowel sounds, soft to palpation, non-tender and non-distended Extremity no clubbing, cyanosis or edema Peripheral Pulses: Yes pulses 2+ throughout Neuro oriented x3, moves all extremities and no focal motor deficits Sensorium / Orientation: awake and alert Speech: speech normal Psych Mood & Affect: depressed Assessment & Plan Assessment/Plan (1) Acute hypoxemic respiratory failure: (2) COVID-19: PLAN: Acute hypoxic respiratory failure secondary to COVID-19 pneumonia -Symptoms started 07/13/2021 and patient will need quarantine until 08/02/2021 -Recommend vaccination after discharge as patient has not been immunized -Patient is back to air Vo with flow of 60 L/min and FiO2 of 82%--> oxygen saturations are 90 to 93% -Continue remdesivir day of -Continue Decadron day -Baricitinib dose 2 of 14 initiated today by infectious disease -I-S and Acapella ordered--> discussed importance of utilization with patient and instructed in frequency -Patient has been very compliant -Encourage prone lying and mobility as able -As needed diuresis to maintain euvolemia--> Lasix 40 mg IV push today -Tylenol for fever -CTA on admission was negative for pulmonary embolus -Appreciate pulmonary and ID input Strep pneumo pneumonia -Sensitivities are pending -Continue ceftriaxone day Anxiety -Continue Effexor -Continue as needed Ativan Morbid obesity -BMI 48.7 -Complicates overall treatment, prognosis, and outcomes -Creases risk for intubation with COVID-19 DVT prophylaxis -Lovenox 40 mg subcu twice daily -SCDs CODE STATUS -Full code Charges/Coding Visit Charges Inpatient E&M: 09824 Subs Hosp L2
[2021-07-21] MEDS: Furosemide 40 MG/4 ML Vial IV (13:31)
[2021-07-21] MEDS: Sodium Chloride 0.65% 1 SPRAY SPRAY.BTL NASAL (20:57)
[2021-07-22] VITALS (31 sets, daily range): BP systolic 105–152; BP diastolic 74–103; PULSE 53–87; RESP 12–33; TEMP 36.6–37.3; O2SAT 86–97
[2021-07-22 05:26] LABS: Absolute Lymphocyte Count 1.43 X10^3/uL (0.83-4.51); Absolute Neutrophil Count 5.8 X10^3/uL (2.0-7.7); Basophil# 0.01 X10^3/uL; Basophil% 0.1 % (0-1); Hematocrit 35.4 % (37-47); Hemoglobin 11.7 g/dL (12.0-15.0); Lymphocyte # 1.43 X10^3/ul (0.83-4.51); Lymphocyte % 17.2 % (19-41); Mean Corp Hgb Conc 33.1 g/dL (32-36); Mean Corpuscular Hgb 27.7 pg (27.0-32.0); Mean Corpuscular Volume 83.7 fL (81-99); Mean Platelet Vol. 10.1 fl (6.2-12.0); Monocyte% 10.8 % (0-10); NRBC Flagged by Analyzer 0 % (0-5); Neutrophil # 5.83 X10^3/uL (2.7-7.7); Neutrophil % 70.1 % (47-70); POSITIVE MORPHOLOGY YES; Platelet Count 296 K/mm3 (150-450); RBC Distribution Width CV 12.2 % (11.6-14.6); RBC Distribution Width SD 37.1 fl (35.1-43.9); Red Blood Count 4.23 M/mm3 (4.2-5.4); White Blood Count 8.3 K/mm3 (4.4-11.0)
[2021-07-22 05:45] LABS: ALB/GLOB Ratio 0.5 RATIO (0.9-2.4); AST(SGOT) 15 U/L (15-37); Alanine Aminotransfer ALT/SGPT 22 U/L (13-56); Albumin, Serum 2.1 g/dL (3.2-5.0); Alkaline Phosphatase 46 U/L (45-117); Anion Gap 8 (5-15); BUN 17 mg/dL (7-18); BUN/Creat Ratio 36.9 RATIO (10-20); Calcium,Total 7.9 mg/dL (8.5-10.1); Chloride 101 mmol/L (98-107); Creatinine, Serum 0.46 mg/dL (0.55-1.02); EST Glomerular Filtration Rate 159 mL/min (>60); Est Glom Filt Rate - Afr Amer 192 mL/min (>60); Estimated Creatinine Clearance 138.98 ml/min; Globulin 4.1 g/dL (2.2-4.2); Glucose 101 mg/dL (74-106); Potassium 3.5 mmol/L (3.5-5.1); Protein, Total 6.2 g/dL (6.4-8.2); Sodium Level 137 mmol/L (136-145)
[2021-07-22 05:50] LABS: Differential Comment SCANNED
--- NOTE | 2021-07-22 06:46 | PCM.PN.INT ---
Assessment & Plan Assessment/Plan (1) Acute hypoxemic respiratory failure: (2) COVID-19: PLAN: RECOMMENDATIONS: 1. Continue BiPAP and wean FiO2 for saturations greater than 90%. 2. Continue remdesivir (07/22/2021), Decadron (07/29/2021) and baricitinib (08/02/2021). Continue to monitor liver and renal function. 3. Continue Decadron to complete 10 days of therapy. 4. Continue ceftriaxone for pneumococcal pneumonia superinfection 5. Possible p.o. diet if able to tolerate Airvo during the day 6. Encourage incentive spirometer, Acapella and prone positioning as tolerated IMPRESSIONS: 1. Acute hypoxemic respiratory failure secondary to COVID-19 with pneumococcus pneumonia superinfection The patient presented to the hospital with progressive Covid symptoms which initially began on the . She has been placed on remdesivir and Decadron. CTA chest showed no evidence for PE. Therefore, prophylactic Lovenox will be continued. Infectious diseases has initiated baricitinib. The patient's oxygenation status has stabilized over the last 24 hours. Patient was able to tolerate Airvo during the day yesterday. Anticipate improvement secondary to treatment of pneumococcal pneumonia. Goal to wean FiO2 to maintain oxygen saturations at or above 90%. Awake prone positioning was encouraged. We will continue to monitor in intensive care unit this morning, but possibly able to transfer from the intensive care unit later today if continues to improve. 2. Morbid obesity/anxiety Complicates care, management, recovery and prognosis. Continue as needed anxiolytic therapy per hospitalist. Subjective Subjective Patient did okay through the day yesterday. No acute issues were reported. Patient is reporting a significant productive cough, but subjectively feels slightly improved compared to previous. Patient was able to tolerate BiPAP overnight Objective Data Objective Data Vital Signs: Vital Signs Temp Pulse Resp BP Pulse Ox 37.3 C 68 30 H 137/91 H 91 07/22/21 04:00 07/22/21 06:00 07/22/21 06:00 07/22/21 06:00 07/22/21 06:00 Oxygen Flow Rate (L/min) 60 Oxygen Delivery Method Bi-pap Weight: 132.7 kg Body Mass Index (BMI) 48.6 Intake & Output: Intake and Output for Last 24 Hours 07/20/21 07/21/21 07/22/21 23:59 23:59 23:59 Intake Total 692.75 / 700.75 1164 / 1164 Output Total 300 / 300 1400 / 1400 600 / 600 Balance 392.75 / 400.75 -236 / -236 -600 / -600 Lab / Micro Data Result Diagrams: 07/22/21 05:20 07/22/21 05:20 Labs: Laboratory Results - last 24 hr 07/22/21 05:20: WBC 8.3, RBC 4.23, Hgb 11.7 L, Hct 35.4 L, MCV 83.7, MCH 27.7, MCHC 33.1, RDW Std Deviation 37.1, RDW Coeff of Donna 12.2, Plt Count 296, MPV 10.1, Immature Gran % (Auto) 1.800 H, Neut % (Auto) 70.1 H, Lymph % (Auto) 17.2 L, [place] % (Auto) 10.8 H, Eos % (Auto) 0.0, Baso % (Auto) 0.1, Absolute Neuts (auto) 5.8, Absolute Lymphs (auto) 1.43, Nucleated RBC % 0, Differential Comment SCANNED 07/22/21 05:20: Sodium 137, Potassium 3.5, Chloride 101, Carbon Dioxide 28.0, Anion Gap 8, BUN 17, Creatinine 0.46 L, Estim Creat Clear Calc 138.98, Est GFR (MDRD) Af Amer 192, Est GFR (MDRD) Non-Af 159, BUN/Creatinine Ratio 36.9 H, Glucose 101, Calcium 7.9 L, Total Bilirubin 0.30, AST 15, ALT 22, Alkaline Phosphatase 46, Total Protein 6.2 L, Albumin 2.1 L, Globulin 4.1, Albumin/Globulin Ratio 0.5 L Micro: Microbiology 07/19/21 16:55 Sputum, Expectorated/Coughed Gram Stain - Final 07/19/21 16:55 Sputum, Expectorated/Coughed Respiratory Culture - Preliminary Streptococcus pneumoniae 07/18/21 21:53 Blood Culture (Wb) - Anticubital Right Blood Culture - Preliminary No growth in 48 hours. 07/18/21 21:50 Blood Culture (Wb) - Anticubital Left Blood Culture - Preliminary No growth in 48 hours. 07/18/21 22:00 Urine, Clean Catch Urine Culture - Final Mixed Gram Pos & Gram Neg Org Physical Exam Const General Appearance: cooperative, comfortable and on BiPAP Nutritional Appearance: morbidly obese HEENT normocephalic and head/scalp atraumatic Eyes PERRL, EOMs intact bilaterally and conjunctivae normal Neck supple General: trachea midline Chest inspection of chest normal Chest: symmetrical chest wall rise; Negative for crepitus Resp Effort and Inspection: tachypneic Auscultation: diminished lung sounds; Negative for rales, rhonchi or wheezes Cardio regular rate and regular rhythm GI normal to inspection, nondistended, normoactive bowel sounds Extremity no clubbing, cyanosis or edema Skin no rashes or lesions noted Neuro CN's II-XII intact bilaterally, moves all extremities and no focal motor deficits Psych Mood & Affect: anxious Charges/Coding Visit Charges Inpatient E&M: 92744 Subs Hosp L3
[2021-07-22] MEDS: LORazepam 1 MG Tablet PO ×3 (09:23→22:20)
[2021-07-22] MEDS: 0.9% Saline Lock 10 ML Syringe IV ×3 (09:23→22:21)
[2021-07-22] MEDS: Acetaminophen 325 MG Tablet 650 MG PO ×2 (09:24→22:19)
[2021-07-22] MEDS: guaiFENesin 1,200 MG Tablet 1200 MG PO ×2 (09:27→22:20)
[2021-07-22] MEDS: Ascorbic Acid 500 MG Tablet 1000 MG PO ×2 (09:27→17:23)
[2021-07-22] MEDS: Benzonatate 100 MG Capsule PO ×3 (09:27→22:20)
[2021-07-22] MEDS: Venlafaxine XR 37.5 MG Capsule PO (09:27)
[2021-07-22] MEDS: Multivitamins,Ther W-Minerals Tablet 1 TABLET PO (09:27)
[2021-07-22] MEDS: Meloxicam 15 MG Tablet PO (09:28)
[2021-07-22] MEDS: dexAMETHasone 2 MG TABLET 6 MG PO (09:28)
[2021-07-22] MEDS: Enoxaparin 40 MG/0.4 ML Syringe SC ×2 (09:28→22:21)
[2021-07-22] MEDS: Cholecalciferol (VIT D3) 25 MCG TABLET (1,000 UNITS) PO (09:29)
--- NOTE | 2021-07-22 13:27 | PCM.PN.HOSP ---
Subjective Subjective Patient reports he feels about the same. No issues overnight. Patient is still requiring about the same amount of oxygen. No acute complaints or needs at this time. Objective Data Objective Data Vital Signs: Vital Signs Temp Pulse Resp BP Pulse Ox 97.8 F 85 31 H 127/87 H 87 07/22/21 08:00 07/22/21 12:02 07/22/21 11:00 07/22/21 11:00 07/22/21 12:02 Oxygen Flow Rate (L/min) 60 Oxygen Delivery Method Airvo Weight: 132.7 kg Body Mass Index (BMI) 48.6 Intake & Output: Intake and Output for Last 24 Hours 07/20/21 07/21/21 07/22/21 23:59 23:59 23:59 Intake Total 692.75 / 700.75 1164 / 1164 Output Total 300 / 300 1400 / 1400 600 / 600 Balance 392.75 / 400.75 -236 / -236 -600 / -600 Lab / Micro Data Result Diagrams: 07/22/21 05:20 07/22/21 05:20 Labs: Laboratory Results - last 24 hr 07/22/21 05:20: WBC 8.3, RBC 4.23, Hgb 11.7 L, Hct 35.4 L, MCV 83.7, MCH 27.7, MCHC 33.1, RDW Std Deviation 37.1, RDW Coeff of Donna 12.2, Plt Count 296, MPV 10.1, Immature Gran % (Auto) 1.800 H, Neut % (Auto) 70.1 H, Lymph % (Auto) 17.2 L, [place] % (Auto) 10.8 H, Eos % (Auto) 0.0, Baso % (Auto) 0.1, Absolute Neuts (auto) 5.8, Absolute Lymphs (auto) 1.43, Nucleated RBC % 0, Differential Comment SCANNED 07/22/21 05:20: Sodium 137, Potassium 3.5, Chloride 101, Carbon Dioxide 28.0, Anion Gap 8, BUN 17, Creatinine 0.46 L, Estim Creat Clear Calc 138.98, Est GFR (MDRD) Af Amer 192, Est GFR (MDRD) Non-Af 159, BUN/Creatinine Ratio 36.9 H, Glucose 101, Calcium 7.9 L, Total Bilirubin 0.30, AST 15, ALT 22, Alkaline Phosphatase 46, Total Protein 6.2 L, Albumin 2.1 L, Globulin 4.1, Albumin/Globulin Ratio 0.5 L Micro: Microbiology 07/19/21 16:55 Sputum, Expectorated/Coughed Gram Stain - Final 07/19/21 16:55 Sputum, Expectorated/Coughed Respiratory Culture - Preliminary Streptococcus pneumoniae 07/18/21 21:53 Blood Culture (Wb) - Anticubital Right Blood Culture - Preliminary No growth in 48 hours. 07/18/21 21:50 Blood Culture (Wb) - Anticubital Left Blood Culture - Preliminary No growth in 48 hours. 07/18/21 22:00 Urine, Clean Catch Urine Culture - Final Mixed Gram Pos & Gram Neg Org Physical Exam Const alert, oriented x3 and no apparent distress Constitutional Narrative: Morbidly obese white female sitting up in a chair at the bedside, on air Vo and appears comfortable at this time, nontoxic, asked for a blanket Exam Limitations: no limitations Nutritional Appearance: morbidly obese HEENT head/scalp atraumatic and moist oral mucous membranes HEENT Narrative: Mallampati 3, no thrush Head and Scalp: normocephalic Resp normal respiratory effort, no retractions and no use of accessory muscles Resp Narrative: Diffusely diminished with few basilar crackles Auscultation: crackles; Negative for rales, rhonchi or wheezes Cardio regular rate, regular rhythm, S1 normal heart sound, S2 normal heart sound, no murmurs, no rub, no gallops, no clicks and no JVD GI normal to inspection, nondistended, normoactive bowel sounds, soft to palpation, non-tender and non-distended Extremity no clubbing, cyanosis or edema Peripheral Pulses: Yes pulses 2+ throughout Neuro oriented x3, moves all extremities and no focal motor deficits Sensorium / Orientation: awake and alert Speech: speech normal Psych Mood & Affect: depressed Assessment & Plan Assessment/Plan (1) Acute hypoxemic respiratory failure: (2) COVID-19: PLAN: Acute hypoxic respiratory failure secondary to COVID-19 pneumonia -Symptoms started 07/13/2021 and patient will need quarantine until 08/02/2021 -Recommend vaccination after discharge as patient has not been immunized -Patient is back to air Vo with flow of 60 L/min and FiO2 of 93%--> oxygen saturations are 87 to 90% -Continue remdesivir day 5 of 5 -Continue Decadron day 5 10 -Baricitinib dose 3 of 14 initiated today by infectious disease -I-S and [place] ordered--> discussed importance of utilization with patient and instructed in frequency -Patient has been very compliant -Encourage prone lying and mobility as able -As needed diuresis to maintain euvolemia--> Lasix 40 mg IV push again today -Tylenol for fever -CTA on admission was negative for pulmonary embolus -Appreciate pulmonary and ID input Strep pneumo pneumonia -Sensitivities are pending -Continue ceftriaxone day Anxiety -Continue Effexor -Continue as needed Ativan Morbid obesity -BMI 48.7 -Complicates overall treatment, prognosis, and outcomes -Creases risk for intubation with COVID-19 DVT prophylaxis -Lovenox 40 mg subcu twice daily -SCDs CODE STATUS -Full code Charges/Coding Visit Charges Inpatient E&M: 53620 Subs Hosp L2
[2021-07-22] MEDS: Furosemide 40 MG/4 ML Vial IV (17:17)
[2021-07-22] MEDS: MELATONIN 10 MG TABLET PO (22:20)
[2021-07-22] MEDS: Sodium Chloride 0.65% 1 SPRAY SPRAY.BTL NASAL (22:32)
[2021-07-23] VITALS (31 sets, daily range): BP systolic 99–164; BP diastolic 55–98; PULSE 55–96; RESP 12–33; TEMP 36.6–36.9; O2SAT 90–98
[2021-07-23 05:29] LABS: Absolute Lymphocyte Count 2.17 X10^3/uL (0.83-4.51); Absolute Neutrophil Count 10.4 X10^3/uL (2.0-7.7); Basophil# 0.02 X10^3/uL; Basophil% 0.1 % (0-1); Eosinophil# 0.02 X10^3/uL; Eosinophils% 0.1 % (0-5); Hematocrit 37.6 % (37-47); Hemoglobin 12.8 g/dL (12.0-15.0); Lymphocyte # 2.17 X10^3/ul (0.83-4.51); Lymphocyte % 15.5 % (19-41); Mean Corpuscular Hgb 28.3 pg (27.0-32.0); Mean Corpuscular Volume 83.2 fL (81-99); Mean Platelet Vol. 9.6 fl (6.2-12.0); Monocyte# 1.08 X10^3/uL; Monocyte% 7.7 % (0-10); NRBC Flagged by Analyzer 0 % (0-5); Neutrophil # 10.44 X10^3/uL (2.7-7.7); Neutrophil % 74.5 % (47-70); Platelet Count 337 K/mm3 (150-450); RBC Distribution Width CV 12.2 % (11.6-14.6); RBC Distribution Width SD 37.2 fl (35.1-43.9); Red Blood Count 4.52 M/mm3 (4.2-5.4)
[2021-07-23 05:47] LABS: ALB/GLOB Ratio 0.5 RATIO (0.9-2.4); AST(SGOT) 13 U/L (15-37); Alanine Aminotransfer ALT/SGPT 21 U/L (13-56); Albumin, Serum 2.2 g/dL (3.2-5.0); Alkaline Phosphatase 53 U/L (45-117); Anion Gap 6 (5-15); BUN 19 mg/dL (7-18); BUN/Creat Ratio 31.8 RATIO (10-20); Calcium,Total 7.9 mg/dL (8.5-10.1); Chloride 102 mmol/L (98-107); EST Glomerular Filtration Rate 118 mL/min (>60); Est Glom Filt Rate - Afr Amer 142 mL/min (>60); Estimated Creatinine Clearance 106.55 ml/min; Globulin 4.1 g/dL (2.2-4.2); Glucose 84 mg/dL (74-106); Potassium 3.4 mmol/L (3.5-5.1); Protein, Total 6.3 g/dL (6.4-8.2); Sodium Level 137 mmol/L (136-145)
--- NOTE | 2021-07-23 08:22 | PN.CC_ITS ---
Assessment & Plan Assessment/Plan (1) Acute hypoxemic respiratory failure: (2) COVID-19: PLAN: RECOMMENDATIONS: 1. Continue BiPAP with sleep and wean FiO2 for saturations greater than 90%. 2. Completed Remdesivir. Continue Decadron (07/29/2021) and baricitinib (08/02/2021). Continue to monitor liver and renal function. 3. Continue to diurese as tolerated 4. Continue ceftriaxone for pneumococcal pneumonia superinfection 5. Aggressive potassium repletion 6. Encourage incentive spirometer, Acapella and prone positioning as tolerated IMPRESSIONS: 1. Acute hypoxemic respiratory failure secondary to COVID-19 with pneumococcus pneumonia superinfection The patient presented to the hospital with progressive Covid symptoms which initially began on the . She has been placed on remdesivir and Decadron. CTA chest showed no evidence for PE. Therefore, prophylactic Lovenox will be continued. Infectious diseases has initiated baricitinib. The patient's oxygenation status has stabilized over the last 24 hours. Patient has been able to tolerate Airvo during the day. Anticipate improvement secondary to treatment of pneumococcal pneumonia. Goal to wean FiO2 to maintain oxygen saturations at or above 90%. Awake prone positioning was encouraged. We will continue to monitor in intensive care unit this morning, but possibly able to transfer from the intensive care unit if continues to improve. 2. Morbid obesity/anxiety Complicates care, management, recovery and prognosis. Continue as needed anxiolytic therapy per hospitalist. Subjective Subjective Patient did okay overnight. No acute issues were reported. Patient was able to wear BiPAP without complication. No new symptoms are reported. Objective Data Objective Data Vital Signs: Vital Signs Temp Pulse Resp BP Pulse Ox 36.7 C 74 32 H 115/82 H 91 07/23/21 04:00 07/23/21 08:04 07/23/21 08:04 07/23/21 05:00 07/23/21 08:04 Oxygen Flow Rate (L/min) 60 Oxygen Delivery Method Bi-pap Weight: 132.8 kg Body Mass Index (BMI) 48.6 Intake & Output: Intake and Output for Last 24 Hours 07/21/21 07/22/21 07/23/21 23:59 23:59 23:59 Intake Total 1164 / 1164 600 / 600 250 / 250 Output Total 1400 / 1400 1400 / 3110 1710 / 1710 Balance -236 / -236 -800 / -2510 -1460 / -1460 Lab / Micro Data Result Diagrams: 07/23/21 05:15 07/23/21 05:15 Labs: Laboratory Results - last 24 hr 07/23/21 05:15: WBC 14.0 H, RBC 4.52, Hgb 12.8, Hct 37.6, MCV 83.2, MCH 28.3, MCHC 34.0, RDW Std Deviation 37.2, RDW Coeff of Donna 12.2, Plt Count 337, MPV 9.6, Immature Gran % (Auto) 2.100 H, Neut % (Auto) 74.5 H, Lymph % (Auto) 15.5 L , [place] % (Auto) 7.7, Eos % (Auto) 0.1, Baso % (Auto) 0.1, Absolute Neuts (auto) 10.4 H, Absolute Lymphs (auto) 2.17, Nucleated RBC % 0 07/23/21 05:15: Sodium 137, Potassium 3.4 L, Chloride 102, Carbon Dioxide 29.0, Anion Gap 6, BUN 19 H, Creatinine 0.60, Estim Creat Clear Calc 106.55, Est GFR (MDRD) Af Amer 142, Est GFR (MDRD) Non-Af 118, BUN/Creatinine Ratio 31.8 H, Glucose 84, Calcium 7.9 L, Total Bilirubin 0.30, AST 13 L, ALT 21, Alkaline Phosphatase 53, Total Protein 6.3 L, Albumin 2.2 L, Globulin 4.1, Albumin/Globulin Ratio 0.5 L Micro: Microbiology 07/19/21 16:55 Sputum, Expectorated/Coughed Gram Stain - Final 07/19/21 16:55 Sputum, Expectorated/Coughed Respiratory Culture - Preliminary Streptococcus pneumoniae 07/18/21 21:53 Blood Culture (Wb) - Anticubital Right Blood Culture - Preliminary No growth in 48 hours. 07/18/21 21:50 Blood Culture (Wb) - Anticubital Left Blood Culture - Preliminary No growth in 48 hours. 07/18/21 22:00 Urine, Clean Catch Urine Culture - Final Mixed Gram Pos & Gram Neg Org Physical Exam Const General Appearance: cooperative, comfortable and on BiPAP Nutritional Appearance: morbidly obese HEENT normocephalic and head/scalp atraumatic Eyes PERRL, EOMs intact bilaterally and conjunctivae normal Neck supple General: trachea midline Chest inspection of chest normal Chest: symmetrical chest wall rise; Negative for crepitus Resp Effort and Inspection: tachypneic Auscultation: diminished lung sounds; Negative for rales, rhonchi or wheezes Cardio regular rate and regular rhythm GI normal to inspection, nondistended, normoactive bowel sounds Extremity no clubbing, cyanosis or edema Skin no rashes or lesions noted Neuro CN's II-XII intact bilaterally, moves all extremities and no focal motor defi cits Psych Mood & Affect: anxious Charges/Coding Visit Charges Inpatient E&M: 40057 Subs Hosp L3
[2021-07-23] MEDS: LORazepam 1 MG Tablet PO ×2 (09:04→23:27)
[2021-07-23] MEDS: guaiFENesin 1,200 MG Tablet 1200 MG PO ×2 (09:05→20:30)
[2021-07-23] MEDS: Acetaminophen 325 MG Tablet 650 MG PO ×2 (09:05→23:27)
[2021-07-23] MEDS: Multivitamins,Ther W-Minerals Tablet 1 TABLET PO (09:06)
[2021-07-23] MEDS: Venlafaxine XR 37.5 MG Capsule PO (09:07)
[2021-07-23] MEDS: Benzonatate 100 MG Capsule PO ×2 (09:07→23:26)
[2021-07-23] MEDS: Cholecalciferol (VIT D3) 25 MCG TABLET (1,000 UNITS) PO (09:07)
[2021-07-23] MEDS: Ascorbic Acid 500 MG Tablet 1000 MG PO ×2 (09:08→17:27)
[2021-07-23] MEDS: Enoxaparin 40 MG/0.4 ML Syringe SC ×2 (09:09→20:30)
[2021-07-23] MEDS: 0.9% Saline Lock 10 ML Syringe IV (09:11)
[2021-07-23] MEDS: dexAMETHasone 2 MG TABLET 6 MG PO (10:23)
[2021-07-23] MEDS: Potassium Chloride Oral Tablet 20 MEQ 40 MEQ PO ×2 (11:40→17:27)
[2021-07-23] MEDS: Furosemide 40 MG/4 ML Vial IV (11:40)
--- NOTE | 2021-07-23 12:48 | PCM.PN.ID ---
Physical Exam Narrative Feeling a little better, no fever, c/o lots of sputum Const alert General Appearance: cooperative Resp Auscultation: diminished lung sounds Cardio regular rate and regular rhythm GI normal to inspection, nondistended, normoactive bowel sounds Skin no rashes or lesions noted ID ID: Route of nutrition/ use of supplements: [] Nutritional Intake: [] IV Site: [] [place] Catheter: [] Assessment & Plan Assessment/Plan (1) COVID-19: PLAN: Sx started 07/11/21. Unvaccinated. Isolate for 20 days from 07/11. Recommended her children get tested and quarantine. Recommend she get vaccinated once out of hospital and out of iso. Cont dex and baricitinib. Completed remdesivir. On ceftriaxone for s. pneumo pneumonia. Will follow (2) Acute hypoxemic respiratory failure:
[2021-07-23] MEDS: Meloxicam 15 MG Tablet PO (13:46)
--- NOTE | 2021-07-23 19:29 | PN.HOSP_ITS ---
Subjective Subjective Patient was seen and examined today in ICU, she is currently on Airvo, she does not complain of any shortness of breath at rest. Objective Data Objective Data Vital Signs: Vital Signs Temp Pulse Resp BP Pulse Ox 97.9 F 74 28 H 119/84 H 95 07/23/21 12:00 07/23/21 17:00 07/23/21 17:00 07/23/21 17:00 07/23/21 17:00 Oxygen Flow Rate (L/min) 60 Oxygen Delivery Method Bi-pap Weight: 132.8 kg Body Mass Index (BMI) 48.6 Intake & Output: Intake and Output for Last 24 Hours 07/21/21 07/22/21 07/23/21 23:59 23:59 23:59 Intake Total 1164 / 1164 600 / 600 1060 / 1060 Output Total 1400 / 1400 1400 / 3110 3710 / 3710 Balance -236 / -236 -800 / -2510 -2650 / -2650 Lab / Micro Data Result Diagrams: 07/23/21 05:15 07/23/21 05:15 Labs: Laboratory Results - last 24 hr 07/23/21 05:15: WBC 14.0 H, RBC 4.52, Hgb 12.8, Hct 37.6, MCV 83.2, MCH 28.3, MCHC 34.0, RDW Std Deviation 37.2, RDW Coeff of Donna 12.2, Plt Count 337, MPV 9.6, Immature Gran % (Auto) 2.100 H, Neut % (Auto) 74.5 H, Lymph % (Auto) 15.5 L , [place] % (Auto) 7.7, Eos % (Auto) 0.1, Baso % (Auto) 0.1, Absolute Neuts (auto) 10.4 H, Absolute Lymphs (auto) 2.17, Nucleated RBC % 0 07/23/21 05:15: Sodium 137, Potassium 3.4 L, Chloride 102, Carbon Dioxide 29.0, Anion Gap 6, BUN 19 H, Creatinine 0.60, Estim Creat Clear Calc 106.55, Est GFR (MDRD) Af Amer 142, Est GFR (MDRD) Non-Af 118, BUN/Creatinine Ratio 31.8 H, Glucose 84, Calcium 7.9 L, Total Bilirubin 0.30, AST 13 L, ALT 21, Alkaline Phosphatase 53, Total Protein 6.3 L, Albumin 2.2 L, Globulin 4.1, Albumin/Globulin Ratio 0.5 L Micro: Microbiology 07/19/21 16:55 Sputum, Expectorated/Coughed Gram Stain - Final 07/19/21 16:55 Sputum, Expectorated/Coughed Respiratory Culture - Final Streptococcus pneumoniae 07/18/21 21:53 Blood Culture (Wb) - Anticubital Right Blood Culture - Preliminary No growth in 48 hours. 07/18/21 21:50 Blood Culture (Wb) - Anticubital Left Blood Culture - Preliminary No growth in 48 hours. 07/18/21 22:00 Urine, Clean Catch Urine Culture - Final Mixed Gram Pos & Gram Neg Org Physical Exam Const alert, oriented x3, no apparent distress and healthy appearing General Appearance: cooperative, well kempt and well developed Orientation / Consciousness: awake, oriented to person, oriented to place and oriented to time HEENT normocephalic and moist oral mucous membranes Eyes PERRL, EOMs intact bilaterally and conjunctivae normal Neck nuchal rigidity, supple, no JVD, thyroid normal and no carotid bruits General: trachea midline Resp normal respiratory effort and clear to auscultation bilaterally Auscultation: Negative for rales, rhonchi or wheezes Cardio regular rate, regular rhythm, no murmurs, no rub and no gallops GI normal to inspection, nondistended, normoactive bowel sounds, soft to palpation, non-tender and non-distended GI Narrative: Patient has morbid obesity Extremity no clubbing, cyanosis or edema Skin no rashes or lesions noted General Skin Exam: no breakdown Neuro oriented x3, CN's II-XII intact bilaterally, no focal motor deficits and no sensory deficits noted Sensorium / Orientation: awake and alert Speech: speech normal Psych thought process normal and affect normal Assessment & Plan Assessment/Plan (1) COVID-19: PLAN: 1. COVID-19 pneumonia-continue present medication-patient is on baricitinib and dexamethasone #2 acute hypoxic respiratory failure-patient is currently on Airvo, pulmonary medicine is seeing the patient in consultation. #3 morbid obesity #4 hypokalemia-patient was given potassium replacement Charges/Coding Visit Charges Inpatient E&M: 86748 Subs Hosp L2
[2021-07-23] MEDS: MELATONIN 10 MG TABLET PO (23:27)
[2021-07-24] VITALS (31 sets, daily range): BP systolic 79–151; BP diastolic 56–111; PULSE 60–112; RESP 12–31; TEMP 36.2–37.2; O2SAT 87–97
[2021-07-24] MEDS: LORazepam 1 MG Tablet PO ×3 (04:03→23:41)
[2021-07-24 04:17] LABS: Absolute Lymphocyte Count 1.89 X10^3/uL (0.83-4.51); Basophil# 0.02 X10^3/uL; Basophil% 0.2 % (0-1); Eosinophil# 0.05 X10^3/uL; Eosinophils% 0.4 % (0-5); Hematocrit 37.1 % (37-47); Hemoglobin 12.6 g/dL (12.0-15.0); Lymphocyte # 1.89 X10^3/ul (0.83-4.51); Lymphocyte % 14.2 % (19-41); Mean Corpuscular Hgb 28.4 pg (27.0-32.0); Mean Corpuscular Volume 83.6 fL (81-99); Mean Platelet Vol. 9.8 fl (6.2-12.0); Monocyte# 1.08 X10^3/uL; Monocyte% 8.1 % (0-10); NRBC Flagged by Analyzer 0 % (0-5); Neutrophil # 9.98 X10^3/uL (2.7-7.7); Neutrophil % 74.9 % (47-70); Platelet Count 338 K/mm3 (150-450); RBC Distribution Width CV 12.2 % (11.6-14.6); RBC Distribution Width SD 37.3 fl (35.1-43.9); Red Blood Count 4.44 M/mm3 (4.2-5.4); White Blood Count 13.3 K/mm3 (4.4-11.0)
[2021-07-24 04:30] LABS: ALB/GLOB Ratio 0.6 RATIO (0.9-2.4); AST(SGOT) 13 U/L (15-37); Alanine Aminotransfer ALT/SGPT 22 U/L (13-56); Albumin, Serum 2.3 g/dL (3.2-5.0); Alkaline Phosphatase 50 U/L (45-117); Anion Gap 7 (5-15); BUN 19 mg/dL (7-18); BUN/Creat Ratio 37.6 RATIO (10-20); Calcium,Total 8.1 mg/dL (8.5-10.1); Chloride 101 mmol/L (98-107); EST Glomerular Filtration Rate 143 mL/min (>60); Est Glom Filt Rate - Afr Amer 173 mL/min (>60); Estimated Creatinine Clearance 127.86 ml/min; Glucose 82 mg/dL (74-106); Potassium 3.8 mmol/L (3.5-5.1); Protein, Total 6.3 g/dL (6.4-8.2); Sodium Level 136 mmol/L (136-145)
[2021-07-24] MEDS: Ascorbic Acid 500 MG Tablet 1000 MG PO ×2 (08:05→17:06)
[2021-07-24] MEDS: Meloxicam 15 MG Tablet PO (09:56)
[2021-07-24] MEDS: Cholecalciferol (VIT D3) 25 MCG TABLET (1,000 UNITS) PO (09:56)
[2021-07-24] MEDS: dexAMETHasone 2 MG TABLET 6 MG PO (09:56)
[2021-07-24] MEDS: Enoxaparin 40 MG/0.4 ML Syringe SC ×2 (09:57→20:30)
[2021-07-24] MEDS: Venlafaxine XR 37.5 MG Capsule PO (09:57)
[2021-07-24] MEDS: Multivitamins,Ther W-Minerals Tablet 1 TABLET PO (09:57)
[2021-07-24] MEDS: Benzonatate 100 MG Capsule PO ×2 (10:10→23:41)
--- NOTE | 2021-07-24 10:27 | PN.CC_ITS ---
Assessment & Plan Assessment/Plan (1) Acute hypoxemic respiratory failure: (2) COVID-19: PLAN: RECOMMENDATIONS: 1. Continue BiPAP with sleep and wean FiO2 for saturations greater than 90%. 2. Completed Remdesivir. Continue Decadron (07/29/2021) and baricitinib (08/02/2021). Continue to monitor liver and renal function. 3. Continue to diurese as tolerated 4. Likely okay to DC ceftraixone. Defer to ID 5. Aggressive potassium repletion when indicated 6. Encourage incentive spirometer, Acapella and prone positioning as tolerated IMPRESSIONS: 1. Acute hypoxemic respiratory failure secondary to COVID-19 with pneumococcus pneumonia superinfection The patient presented to the hospital with progressive Covid symptoms which initially began on the . She has been placed on remdesivir and De cadron. CTA chest showed no evidence for PE. Therefore, prophylactic Lovenox will be continued. Infectious diseases has initiated baricitinib. The patient's oxygenation status has stabilized over the last 24 hours. Patient has been able to tolerate Airvo during the day. Anticipate improvement secondary to treatment of pneumococcal pneumonia. Goal to wean FiO2 to maintain oxygen saturations at or above 90%. Awake prone positioning was encouraged. Challenge with lasix. Possible transfer to PCU 2. Morbid obesity/anxiety Complicates care, management, recovery and prognosis. Continue as needed anxiolytic therapy per hospitalist. Subjective Subjective Patient did okay overnight. Patient able to tolerate bipap with sleep. Cough productive of clear to white sputum is unchanged. Patient feels subjectively unchanged. Objective Data Objective Data Vital Signs: Vital Signs Temp Pulse Resp BP Pulse Ox 36.7 C 91 31 H 132/76 H 87 07/24/21 08:00 07/24/21 09:00 07/24/21 09:00 07/24/21 09:00 07/24/21 09:00 Oxygen Flow Rate (L/min) 60 Oxygen Delivery Method Airvo Weight: 133.129 kg Body Mass Index (BMI) 48.6 Intake & Output: Intake and Output for Last 24 Hours 07/22/21 07/23/21 07/24/21 23:59 23:59 23:59 Intake Total 600 / 600 1610 / 1610 400 / 400 Output Total 1400 / 3110 4010 / 4010 Balance -800 / -2510 -2400 / -2400 400 / 400 Lab / Micro Data Result Diagrams: 07/24/21 04:00 07/24/21 04:00 Labs: Laboratory Results - last 24 hr 07/24/21 04:00: WBC 13.3 H, RBC 4.44, Hgb 12.6, Hct 37.1, MCV 83.6, MCH 28.4, MCHC 34.0, RDW Std Deviation 37.3, RDW Coeff of Donna 12.2, Plt Count 338, MPV 9.8, Immature Gran % (Auto) 2.200 H, Neut % (Auto) 74.9 H, Lymph % (Auto) 14.2 L , [place] % (Auto) 8.1, Eos % (Auto) 0.4, Baso % (Auto) 0.2, Absolute Neuts (auto) 10.0 H, Absolute Lymphs (auto) 1.89, Nucleated RBC % 0 07/24/21 04:00: Sodium 136, Potassium 3.8, Chloride 101, Carbon Dioxide 28.0, Anion Gap 7, BUN 19 H, Creatinine 0.50 L, Estim Creat Clear Calc 127.86, Est GFR (MDRD) Af Amer 173, Est GFR (MDRD) Non-Af 143, BUN/Creatinine Ratio 37.6 H, Glucose 82, Calcium 8.1 L, Total Bilirubin 0.30, AST 13 L, ALT 22, Alkaline Phosphatase 50, Total Protein 6.3 L, Albumin 2.3 L, Globulin 4.0, Albumin/Globulin Ratio 0.6 L Micro: Microbiology 07/18/21 21:50 Blood Culture (Wb) - Anticubital Left Blood Culture - Final No growth in 5 days. 07/18/21 21:53 Blood Culture (Wb) - Anticubital Right Blood Culture - Final No growth in 5 days. 07/19/21 16:55 Sputum, Expectorated/Coughed Gram Stain - Final 07/19/21 16:55 Sputum, Expectorated/Coughed Respiratory Culture - Final Streptococcus pneumoniae 07/18/21 22:00 Urine, Clean Catch Urine Culture - Final Mixed Gram Pos & Gram Neg Org Physical Exam Const General Appearance: cooperative, comfortable and on BiPAP Nutritional Appearance: morbidly obese HEENT normocephalic and head/scalp atraumatic Eyes PERRL, EOMs intact bilaterally and conjunctivae normal Neck supple General: trachea midline Chest inspection of chest normal Chest: symmetrical chest wall rise; Negative for crepitus Resp Effort and Inspection: tachypneic Auscultation: diminished lung sounds; Negative for rales, rhonchi or wheezes Cardio regular rate and regular rhythm GI normal to inspection, nondistended, normoactive bowel sounds Extremity no clubbing, cyanosis or edema Skin no rashes or lesions noted Neuro CN's II-XII intact bilaterally, moves all extremities and no focal motor deficits Psych Mood & Affect: anxious Charges/Coding Visit Charges Inpatient E&M: 47185 Subs Hosp L3
[2021-07-24] MEDS: Furosemide 40 MG/4 ML Vial IV (10:57)
[2021-07-24] MEDS: guaiFENesin 1,200 MG Tablet 1200 MG PO ×2 (10:57→20:30)
--- NOTE | 2021-07-24 19:19 | PCM.PN.HOSP ---
Subjective Subjective Patient was seen and examined today, she remains on high flow oxygen (Airvo) at this time, she does not complain of any chest discomfort or shortness of breath at rest. Objective Data Objective Data Vital Signs: Vital Signs Temp Pulse Resp BP Pulse Ox 97.2 F L 92 24 H 121/74 H 94 07/24/21 17:00 07/24/21 18:00 07/24/21 18:00 07/24/21 18:00 07/24/21 18:00 Oxygen Flow Rate (L/min) 60 Oxygen Delivery Method Airvo Weight: 133.129 kg Body Mass Index (BMI) 48.6 Intake & Output: Intake and Output for Last 24 Hours 07/22/21 07/23/21 07/24/21 23:59 23:59 23:59 Intake Total 600 / 600 1610 / 1610 450 / 450 Output Total 1400 / 3110 4010 / 4010 Balance -800 / -2510 -2400 / -2400 450 / 450 Lab / Micro Data Result Diagrams: 07/24/21 04:00 07/24/21 04:00 Labs: Laboratory Results - last 24 hr 07/24/21 04:00: WBC 13.3 H, RBC 4.44, Hgb 12.6, Hct 37.1, MCV 83.6, MCH 28.4, MCHC 34.0, RDW Std Deviation 37.3, RDW Coeff of Donna 12.2, Plt Count 338, MPV 9.8, Immature Gran % (Auto) 2.200 H, Neut % (Auto) 74.9 H, Lymph % (Auto) 14.2 L, [place] % (Auto) 8.1, Eos % (Auto) 0.4, Baso % (Auto) 0.2, Absolute Neuts (auto) 10.0 H, Absolute Lymphs (auto) 1.89, Nucleated RBC % 0 07/24/21 04:00: Sodium 136, Potassium 3.8, Chloride 101, Carbon Dioxide 28.0, Anion Gap 7, BUN 19 H, Creatinine 0.50 L, Estim Creat Clear Calc 127.86, Est GFR (MDRD) Af Amer 173, Est GFR (MDRD) Non-Af 143, BUN/Creatinine Ratio 37.6 H, Glucose 82, Calcium 8.1 L, Total Bilirubin 0.30, AST 13 L, ALT 22, Alkaline Phosphatase 50, Total Protein 6.3 L, Albumin 2.3 L, Globulin 4.0, Albumin/Globulin Ratio 0.6 L Micro: Microbiology 07/18/21 21:50 Blood Culture (Wb) - Anticubital Left Blood Culture - Final No growth in 5 days. 07/18/21 21:53 Blood Culture (Wb) - Anticubital Right Blood Culture - Final No growth in 5 days. 07/19/21 16:55 Sputum, Expectorated/Coughed Gram Stain - Final 07/19/21 16:55 Sputum, Expectorated/Coughed Respiratory Culture - Final Streptococcus pneumoniae 07/18/21 22:00 Urine, Clean Catch Urine Culture - Final Mixed Gram Pos & Gram Neg Org Physical Exam Const alert, oriented x3 and no apparent distress General Appearance: cooperative, well kempt and well developed Orientation / Consciousness: awake, oriented to person, oriented to place and oriented to time Nutritional Appearance: morbidly obese HEENT normocephalic, head/scalp atraumatic and moist oral mucous membranes Head and Scalp: normocephalic Eyes PERRL, EOMs intact bilaterally and conjunctivae normal Neck nuchal rigidity, supple, no JVD, thyroid normal and no carotid bruits General: trachea midline Resp normal respiratory effort and clear to auscultation bilaterally Auscultation: Negative for rales, rhonchi or wheezes Cardio regular rate, regular rhythm, no murmurs, no rub and no gallops GI normal to inspection, nondistended, normoactive bowel sounds, soft to palpation, non-tender and non-distended Extremity no clubbing, cyanosis or edema Skin no rashes or lesions noted General Skin Exam: no breakdown Neuro oriented x3, CN's II-XII intact bilaterally, no focal motor deficits and no sensory deficits noted Sensorium / Orientation: awake and alert Speech: speech normal Psych thought process normal and affect normal Assessment & Plan Assessment/Plan (1) COVID-19: PLAN: 1. COVID-19 pneumonia-continue present medication-patient is on baricitinib and dexamethasone #2 acute hypoxic respiratory failure-patient is currently on Airvo, pulmonary medicine is seeing the patient in consultation. #3 morbid obesity #4 hypokalemia-corrected Charges/Coding Visit Charges Inpatient E&M: 44415 Subs Hosp L2
[2021-07-24] MEDS: Acetaminophen 325 MG Tablet 650 MG PO (23:41)
[2021-07-24] MEDS: MELATONIN 10 MG TABLET PO (23:41)
[2021-07-25] VITALS (25 sets, daily range): BP systolic 99–121; BP diastolic 61–76; PULSE 54–90; RESP 12–27; TEMP 36.4–37; O2SAT 92–96
[2021-07-25] MEDS: LORazepam 1 MG Tablet PO ×2 (04:33→23:29)
[2021-07-25 04:40] LABS: Absolute Lymphocyte Count 1.03 X10^3/uL (0.83-4.51); Absolute Neutrophil Count 9.7 X10^3/uL (2.0-7.7); Basophil# 0.03 X10^3/uL; Basophil% 0.3 % (0-1); Eosinophil# 0.08 X10^3/uL; Eosinophils% 0.7 % (0-5); Hematocrit 37.9 % (37-47); Hemoglobin 12.6 g/dL (12.0-15.0); Lymphocyte # 1.03 X10^3/ul (0.83-4.51); Lymphocyte % 8.7 % (19-41); Mean Corp Hgb Conc 33.2 g/dL (32-36); Mean Corpuscular Hgb 28.4 pg (27.0-32.0); Mean Corpuscular Volume 85.4 fL (81-99); Mean Platelet Vol. 9.6 fl (6.2-12.0); Monocyte# 0.77 X10^3/uL; Monocyte% 6.5 % (0-10); NRBC Flagged by Analyzer 0 % (0-5); Neutrophil # 9.66 X10^3/uL (2.7-7.7); Neutrophil % 81.4 % (47-70); Platelet Count 324 K/mm3 (150-450); RBC Distribution Width CV 12.1 % (11.6-14.6); RBC Distribution Width SD 37.3 fl (35.1-43.9); Red Blood Count 4.44 M/mm3 (4.2-5.4); White Blood Count 11.9 K/mm3 (4.4-11.0)
[2021-07-25 04:59] LABS: ALB/GLOB Ratio 0.5 RATIO (0.9-2.4); AST(SGOT) 11 U/L (15-37); Alanine Aminotransfer ALT/SGPT 23 U/L (13-56); Albumin, Serum 2.3 g/dL (3.2-5.0); Alkaline Phosphatase 52 U/L (45-117); Anion Gap 6 (5-15); BUN 16 mg/dL (7-18); BUN/Creat Ratio 35.3 RATIO (10-20); Calcium,Total 8.2 mg/dL (8.5-10.1); Chloride 100 mmol/L (98-107); Creatinine, Serum 0.45 mg/dL (0.55-1.02); EST Glomerular Filtration Rate 162 mL/min (>60); Est Glom Filt Rate - Afr Amer 196 mL/min (>60); Estimated Creatinine Clearance 142.07 ml/min; Globulin 4.2 g/dL (2.2-4.2); Glucose 91 mg/dL (74-106); Potassium 3.8 mmol/L (3.5-5.1); Protein, Total 6.5 g/dL (6.4-8.2); Sodium Level 134 mmol/L (136-145)
--- NOTE | 2021-07-25 07:07 | PCM.PN.INT ---
Assessment & Plan Assessment/Plan (1) Acute hypoxemic respiratory failure: (2) COVID-19: PLAN: RECOMMENDATIONS: 1. Continue combination of BiPAP and Airvo heated high flow, as tolerated. 2. Wean FiO2 to maintain oxygen saturations at or above 90%. 3. Continue antimicrobials to complete treatment course, per ID recommendations. 4. Continue prophylactic Lovenox twice daily. 5. Continue Decadron and baricitinib to complete treatment courses. 6. Encourage incentive spirometer use and mobilize patient as tolerated. 7. Diuretics, as needed, to maintain euvolemic state. IMPRESSIONS: 1. Acute hypoxemic respiratory failure secondary to COVID-19 with pneumococcus pneumonia superinfection The patient presented to the hospital with progressive Covid symptoms which initially began on the . CTA chest showed no evidence for PE. Therefore, prophylactic Lovenox will be continued. The patient has completed a treatment course of remdesivir. She remains on baricitinib and Decadron, which will be continued to complete treatment courses. The patient remains on appropriate antimicrobials, given pneumococcus identified from sputum culture. Awake prone positioning was encouraged. The patient will remain on a combination of BiPAP and heated high flow oxygen, as tolerated, to maintain oxygen saturations at or above 90%. Diuretics can be utilized as needed to maintain euvolemic state. 2. Morbid obesity/anxiety Complicates care, management, recovery and prognosis. Continue as needed anxiolytic therapy per hospitalist. This note was generated with [employer] dictation software. It may contain incorrect words, spelling, and punctuation that were not noted in checking the note before signing. Subjective Subjective The patient was seen and examined at the bedside this morning. Events from the last 24 hours have been reviewed. The patient is currently afebrile, hemodynamically stable and maintaining appropriate oxygen saturations on BIPAP with an FiO2 requirement of 60%. Nevertheless, the patient has been able to be weaned to heated high flow oxygen throughout the day. She is currently documented to be overall net -2.1 L for the hospitalization. The patient remains on antimicrobials, Decadron, twice daily Lovenox and baricitinib. Renal function is stable. Objective Data Objective Data The patient's most recent lab work, culture data and imaging studies have all been personally reviewed. Sputum culture was positive for Streptococcus pneumonia. Vital Signs: Vital Signs Temp Pulse Resp BP Pulse Ox 98.6 F 58 L 24 H 101/68 95 07/25/21 00:00 07/25/21 06:00 07/25/21 06:00 07/25/21 06:00 07/25/21 06:00 Oxygen Flow Rate (L/min) 60 Oxygen Delivery Method Bi-pap Weight: 132.948 kg Body Mass Index (BMI) 48.6 Intake & Output: Intake and Output for Last 24 Hours 07/23/21 07/24/21 07/25/21 23:59 23:59 23:59 Intake Total 1610 / 1610 450 / 450 800 / 800 Output Total 4010 / 4010 1999 / 1999 Balance -2400 / -2400 450 / 450 -1200 / -1200 Lab / Micro Data Attestation: I reviewed the patient's lab results. Result Diagrams: 07/25/21 04:30 07/25/21 04:30 Labs: Laboratory Results - last 24 hr 07/25/21 04:30: WBC 11.9 H, RBC 4.44, Hgb 12.6, Hct 37.9, MCV 85.4, MCH 28.4, MCHC 33.2, RDW Std Deviation 37.3, RDW Coeff of Donna 12.1, Plt Count 324, MPV 9.6, Immature Gran % (Auto) 2.400 H, Neut % (Auto) 81.4 H, Lymph % (Auto) 8.7 L, [place] % (Auto) 6.5, Eos % (Auto) 0.7, Baso % (Auto) 0.3, Absolute Neuts (auto) 9.7 H, Absolute Lymphs (auto) 1.03, Nucleated RBC % 0 07/25/21 04:30: Sodium 134 L, Potassium 3.8, Chloride 100, Carbon Dioxide 28.0, Anion Gap 6, BUN 16, Creatinine 0.45 L, Estim Creat Clear Calc 142.07, Est GFR (MDRD) Af Amer 196, Est GFR (MDRD) Non-Af 162, BUN/Creatinine Ratio 35.3 H, Glucose 91, Calcium 8.2 L, Total Bilirubin 0.30, AST 11 L, ALT 23, Alkaline Phosphatase 52, Total Protein 6.5, Albumin 2.3 L, Globulin 4.2, Albumin/Globulin Ratio 0.5 L Micro: Microbiology 07/18/21 21:50 Blood Culture (Wb) - Anticubital Left Blood Culture - Final No growth in 5 days. 07/18/21 21:53 Blood Culture (Wb) - Anticubital Right Blood Culture - Final No growth in 5 days. 07/19/21 16:55 Sputum, Expectorated/Coughed Gram Stain - Final 07/19/21 16:55 Sputum, Expectorated/Coughed Respiratory Culture - Final Streptococcus pneumoniae 07/18/21 22:00 Urine, Clean Catch Urine Culture - Final Mixed Gram Pos & Gram Neg Org Physical Exam Const alert and no apparent distress General Appearance: cooperative and on BiPAP Nutritional Appearance: morbidly obese HEENT normocephalic, head/scalp atraumatic and moist oral mucous membranes Eyes PERRL, EOMs intact bilaterally and conjunctivae normal Neck supple General: trachea midline Chest inspection of chest normal Resp Effort and Inspection: tachypneic Auscultation: diminished lung sounds Cardio S1 normal heart sound and S2 normal heart sound Rate: bradycardia GI normal to inspection, nondistended, normoactive bowel sounds Extremity no clubbing, cyanosis or edema Skin no rashes or lesions noted Neuro CN's II-XII intact bilaterally, moves all extremities and no focal motor deficits Psych Mood & Affect: anxious Charges/Coding Visit Charges Inpatient E&M: 78853 Subs Hosp L3
[2021-07-25] MEDS: Ascorbic Acid 500 MG Tablet 1000 MG PO ×2 (08:12→16:37)
[2021-07-25] MEDS: Enoxaparin 40 MG/0.4 ML Syringe SC ×2 (10:15→21:44)
[2021-07-25] MEDS: Meloxicam 15 MG Tablet PO (10:16)
[2021-07-25] MEDS: Multivitamins,Ther W-Minerals Tablet 1 TABLET PO (10:16)
[2021-07-25] MEDS: dexAMETHasone 2 MG TABLET 6 MG PO (10:16)
[2021-07-25] MEDS: Cholecalciferol (VIT D3) 25 MCG TABLET (1,000 UNITS) PO (10:16)
[2021-07-25] MEDS: Venlafaxine XR 37.5 MG Capsule PO (10:16)
[2021-07-25] MEDS: guaiFENesin 1,200 MG Tablet 1200 MG PO ×2 (10:16→21:44)
--- NOTE | 2021-07-25 20:40 | PCM.PN.HOSP ---
Subjective Subjective Patient was seen and examined today, she remains on Airvo, she does not appear to be in any distress at this time. Objective Data Objective Data Vital Signs: Vital Signs Temp Pulse Resp BP Pulse Ox 97.6 F L 60 22 H 111/76 95 07/25/21 16:00 07/25/21 16:03 07/25/21 16:03 07/25/21 16:00 07/25/21 16:03 Oxygen Flow Rate (L/min) 60 Oxygen Delivery Method Airvo Weight: 132.948 kg Body Mass Index (BMI) 48.6 Intake & Output: Intake and Output for Last 24 Hours 07/23/21 07/24/21 07/25/21 23:59 23:59 23:59 Intake Total 1610 / 1610 450 / 450 884.5 / 884.5 Output Total 4010 / 4010 2400 / 2400 Balance -2400 / -2400 450 / 450 -1515.5 / -1515.5 Lab / Micro Data Result Diagrams: 07/25/21 04:30 07/25/21 04:30 Labs: Laboratory Results - last 24 hr 07/25/21 04:30: WBC 11.9 H, RBC 4.44, Hgb 12.6, Hct 37.9, MCV 85.4, MCH 28.4, MCHC 33.2, RDW Std Deviation 37.3, RDW Coeff of Donna 12.1, Plt Count 324, MPV 9.6, Immature Gran % (Auto) 2.400 H, Neut % (Auto) 81.4 H, Lymph % (Auto) 8.7 L, [place] % (Auto) 6.5, Eos % (Auto) 0.7, Baso % (Auto) 0.3, Absolute Neuts (auto) 9.7 H, Absolute Lymphs (auto) 1.03, Nucleated RBC % 0 07/25/21 04:30: Sodium 134 L, Potassium 3.8, Chloride 100, Carbon Dioxide 28.0, Anion Gap 6, BUN 16, Creatinine 0.45 L, Estim Creat Clear Calc 142.07, Est GFR (MDRD) Af Amer 196, Est GFR (MDRD) Non-Af 162, BUN/Creatinine Ratio 35.3 H, Glucose 91, Calcium 8.2 L, Total Bilirubin 0.30, AST 11 L, ALT 23, Alkaline Phosphatase 52, Total Protein 6.5, Albumin 2.3 L, Globulin 4.2, Albumin/Globulin Ratio 0.5 L Micro: Microbiology 07/18/21 21:50 Blood Culture (Wb) - Anticubital Left Blood Culture - Final No growth in 5 days. 07/18/21 21:53 Blood Culture (Wb) - Anticubital Right Blood Culture - Final No growth in 5 days. 07/19/21 16:55 Sputum, Expectorated/Coughed Gram Stain - Final 07/19/21 16:55 Sputum, Expectorated/Coughed Respiratory Culture - Final Streptococcus pneumoniae 07/18/21 22:00 Urine, Clean Catch Urine Culture - Final Mixed Gram Pos & Gram Neg Org Physical Exam Const alert, oriented x3, no apparent distress and healthy appearing General Appearance: cooperative, well kempt and well developed Orientation / Consciousness: awake, oriented to person, oriented to place and oriented to time Nutritional Appearance: morbidly obese HEENT normocephalic and moist oral mucous membranes Eyes PERRL, EOMs intact bilaterally and conjunctivae normal Neck nuchal rigidity, supple, no JVD and thyroid normal General: trachea midline Resp normal respiratory effort and clear to auscultation bilaterally Auscultation: Negative for rales, rhonchi or wheezes Cardio regular rate, regular rhythm, no murmurs, no rub and no gallops GI normal to inspection, nondistended, normoactive bowel sounds, soft to palpation, non-tender and non-distended Extremity no clubbing, cyanosis or edema Skin no rashes or lesions noted General Skin Exam: no breakdown Neuro oriented x3, CN's II-XII intact bilaterally, no focal motor deficits and no sensory deficits noted Sensorium / Orientation: awake and alert Speech: speech normal Psych thought process normal and affect normal Assessment & Plan Assessment/Plan (1) COVID-19: PLAN: 1. COVID-19 pneumonia-continue present medication-patient is on baricitinib and dexamethasone #2 acute hypoxic respiratory failure-patient is currently on Airvo, pulmonary medicine is seeing the patient in consultation. Patient's respiratory status does not appear to be declining at this time. #3 morbid obesity #4 hypokalemia-corrected Charges/Coding Visit Charges Inpatient E&M: 96541 Subs Hosp L2
--- NOTE | 2021-07-25 21:15 | CPS ---
Pt.'s FiO2 increased to 80% on AirVo at this time to increase oxygen saturations
--- NOTE | 2021-07-25 22:57 | CPS ---
Water bag for inhalation changed for pt.'s AirVo ([id number])
[2021-07-25] MEDS: Benzonatate 100 MG Capsule PO (23:29)
[2021-07-25] MEDS: Acetaminophen 325 MG Tablet 650 MG PO (23:29)
[2021-07-25] MEDS: MELATONIN 10 MG TABLET PO (23:30)
[2021-07-26] VITALS (17 sets, daily range): BP systolic 104–135; BP diastolic 66–78; PULSE 53–85; RESP 12–26; TEMP 36.8–36.9; O2SAT 89–96
[2021-07-26] MEDS: LORazepam 1 MG Tablet PO ×2 (04:21→21:04)
[2021-07-26 04:35] LABS: Absolute Lymphocyte Count 1.05 X10^3/uL (0.83-4.51); Absolute Neutrophil Count 12.2 X10^3/uL (2.0-7.7); Basophil# 0.03 X10^3/uL; Basophil% 0.2 % (0-1); Eosinophil# 0.18 X10^3/uL; Eosinophils% 1.2 % (0-5); Hemoglobin 12.2 g/dL (12.0-15.0); Lymphocyte # 1.05 X10^3/ul (0.83-4.51); Lymphocyte % 7.1 % (19-41); Mean Corp Hgb Conc 33.9 g/dL (32-36); Mean Corpuscular Hgb 28.3 pg (27.0-32.0); Mean Corpuscular Volume 83.5 fL (81-99); Mean Platelet Vol. 9.5 fl (6.2-12.0); Monocyte# 0.93 X10^3/uL; Monocyte% 6.3 % (0-10); NRBC Flagged by Analyzer 0 % (0-5); Neutrophil # 12.21 X10^3/uL (2.7-7.7); Platelet Count 356 K/mm3 (150-450); RBC Distribution Width CV 12.2 % (11.6-14.6); RBC Distribution Width SD 37.3 fl (35.1-43.9); Red Blood Count 4.31 M/mm3 (4.2-5.4); White Blood Count 14.7 K/mm3 (4.4-11.0)
[2021-07-26 04:54] LABS: ALB/GLOB Ratio 0.6 RATIO (0.9-2.4); AST(SGOT) 10 U/L (15-37); Alanine Aminotransfer ALT/SGPT 21 U/L (13-56); Albumin, Serum 2.2 g/dL (3.2-5.0); Alkaline Phosphatase 55 U/L (45-117); Anion Gap 5 (5-15); BUN 15 mg/dL (7-18); BUN/Creat Ratio 28.9 RATIO (10-20); Calcium,Total 8.1 mg/dL (8.5-10.1); Chloride 105 mmol/L (98-107); Creatinine, Serum 0.52 mg/dL (0.55-1.02); EST Glomerular Filtration Rate 138 mL/min (>60); Est Glom Filt Rate - Afr Amer 167 mL/min (>60); Estimated Creatinine Clearance 122.94 ml/min; Glucose 96 mg/dL (74-106); Potassium 4.2 mmol/L (3.5-5.1); Protein, Total 6.2 g/dL (6.4-8.2); Sodium Level 139 mmol/L (136-145)
--- NOTE | 2021-07-26 06:16 | PN.CC_ITS ---
Assessment & Plan Assessment/Plan (1) Acute hypoxemic respiratory failure: (2) COVID-19: PLAN: RECOMMENDATIONS: 1. Continue combination of BiPAP and Airvo heated high flow, as tolerated. 2. Wean FiO2 to maintain oxygen saturations at or above 90%. 3. Continue antimicrobials to complete treatment course, per ID recommendations. 4. Continue prophylactic Lovenox twice daily. 5. Continue Decadron and baricitinib to complete treatment courses. 6. Encourage incentive spirometer use and mobilize patient as tolerated. 7. Diuretics, as needed, to maintain euvolemic state. Lasix ordered for today. IMPRESSIONS: 1. Acute hypoxemic respiratory failure secondary to COVID-19 with pneumococcus pneumonia superinfection The patient presented to the hospital with progressive Covid symptoms which initially began on the . CTA chest showed no evidence for PE. Therefore, prophylactic Lovenox will be continued. The patient has completed a treatment course of remdesivir. She remains on baricitinib and Decadron, which will be continued to complete treatment courses. The patient remains on appropriate antimicrobials, given pneumococcus identified from sputum culture. Awake prone positioning was encouraged. The patient will remain on a combination of BiPAP and heated high flow oxygen, as tolerated, to maintain oxygen saturations at or above 90%. Diuretics can be utilized as needed to maintain euvolemic state. 2. Morbid obesity/anxiety Complicates care, management, recovery and prognosis. Continue as needed anxiolytic therapy per hospitalist. This note was generated with [employer] dictation software. It may contain incorrect words, spelling, and punctuation that were not noted in checking the note before signing. Subjective Subjective The patient was seen and examined at the bedside this morning. Events from the last 24 hours have been reviewed. The patient is currently afebrile, hemodynamically stable and maintaining appropriate oxygen saturations on BIPAP with an FiO2 requirement of 45%. The patient is able to maintain appropriate oxygen saturations on heated high flow throughout the day. She is currently documented to be overall net -2.4 L for the hospitalization. The patient remains on antimicrobials, Decadron, twice daily Lovenox and baricitinib. Objective Data Objective Data The patient's most recent lab work, culture data and imaging studies have all been personally reviewed. Sputum culture was positive for Streptococcus pneumonia. Vital Signs: Vital Signs Temp Pulse Resp BP Pulse Ox 98.3 F 69 26 H 113/71 93 07/25/21 22:00 07/26/21 05:04 07/26/21 05:04 07/25/21 22:00 07/26/21 05:04 Oxygen Flow Rate (L/min) 60 Oxygen Delivery Method Bi-pap Weight: 132.8 kg Body Mass Index (BMI) 48.6 Intake & Output: Intake and Output for Last 24 Hours 07/24/21 07/25/21 07/26/21 23:59 23:59 23:59 Intake Total 450 / 450 884.5 / 884.5 Output Total 2400 / 2400 Balance 450 / 450 -1515.5 / -1515.5 Lab / Micro Data Attestation: I reviewed the patient's lab results. Result Diagrams: 07/26/21 04:20 07/26/21 04:20 Labs: Laboratory Results - last 24 hr 07/26/21 04:20: WBC 14.7 H, RBC 4.31, Hgb 12.2, Hct 36.0 L, MCV 83.5, MCH 28.3, MCHC 33.9, RDW Std Deviation 37.3, RDW Coeff of Donna 12.2, Plt Count 356, MPV 9.5, Immature Gran % (Auto) 2.200 H, Neut % (Auto) 83.0 H, Lymph % (Auto) 7.1 L, [place] % (Auto) 6.3, Eos % (Auto) 1.2, Baso % (Auto) 0.2, Absolute Neuts (auto) 12.2 H, Absolute Lymphs (auto) 1.05, Nucleated RBC % 0 07/26/21 04:20: Sodium 139, Potassium 4.2, Chloride 105, Carbon Dioxide 29.0, Anion Gap 5, BUN 15, Creatinine 0.52 L, Estim Creat Clear Calc 122.94, Est GFR (MDRD) Af Amer 167, Est GFR (MDRD) Non-Af 138, BUN/Creatinine Ratio 28.9 H, Glucose 96, Calcium 8.1 L, Total Bilirubin 0.20, AST 10 L, ALT 21, Alkaline Phosphatase 55, Total Protein 6.2 L, Albumin 2.2 L, Globulin 4.0, Albumin/Gl obulin Ratio 0.6 L Micro: Microbiology 07/18/21 21:50 Blood Culture (Wb) - Anticubital Left Blood Culture - Final No growth in 5 days. 07/18/21 21:53 Blood Culture (Wb) - Anticubital Right Blood Culture - Final No growth in 5 days. 07/19/21 16:55 Sputum, Expectorated/Coughed Gram Stain - Final 07/19/21 16:55 Sputum, Expectorated/Coughed Respiratory Culture - Final Streptococcus pneumoniae 07/18/21 22:00 Urine, Clean Catch Urine Culture - Final Mixed Gram Pos & Gram Neg Org Physical Exam Const alert and no apparent distress General Appearance: cooperative and on BiPAP Nutritional Appearance: morbidly obese HEENT normocephalic, head/scalp atraumatic and moist oral mucous membranes Eyes PERRL, EOMs intact bilaterally and conjunctivae normal Neck supple General: trachea midline Chest inspection of chest normal Resp Effort and Inspection: tachypneic Auscultation: diminished lung sounds Cardio S1 normal heart sound and S2 normal heart sound Rate: bradycardia GI normal to inspection, nondistended, normoactive bowel sounds Extremity no clubbing, cyanosis or edema Skin no rashes or lesions noted Neuro CN's II-XII intact bilaterally, moves all extremities and no focal motor deficits Psych Mood & Affect: anxious Charges/Coding Visit Charges Inpatient E&M: 38870 Subs Hosp L3
[2021-07-26] MEDS: Benzonatate 100 MG Capsule PO ×2 (09:03→21:05)
[2021-07-26] MEDS: dexAMETHasone 2 MG TABLET 6 MG PO (09:03)
[2021-07-26] MEDS: Venlafaxine XR 37.5 MG Capsule PO (09:03)
[2021-07-26] MEDS: Ascorbic Acid 500 MG Tablet 1000 MG PO ×2 (09:03→16:45)
[2021-07-26] MEDS: Acetaminophen 325 MG Tablet 650 MG PO ×2 (09:04→21:05)
[2021-07-26] MEDS: Furosemide 40 MG/4 ML Vial IV (09:04)
[2021-07-26] MEDS: Multivitamins,Ther W-Minerals Tablet 1 TABLET PO (09:05)
[2021-07-26] MEDS: guaiFENesin 1,200 MG Tablet 1200 MG PO ×2 (09:05→21:06)
[2021-07-26] MEDS: Cholecalciferol (VIT D3) 25 MCG TABLET (1,000 UNITS) PO (09:05)
[2021-07-26] MEDS: Meloxicam 15 MG Tablet PO (09:05)
[2021-07-26] MEDS: Enoxaparin 40 MG/0.4 ML Syringe SC ×2 (09:06→21:04)
[2021-07-26] MEDS: 0.9% Saline Lock 10 ML Syringe IV (09:06)
--- NOTE | 2021-07-26 18:46 | PN.HOSP_ITS ---
Subjective Subjective Patient was seen and examined today, she remains in ICU at this time but I have written orders for her to be transferred to PCU. Patient is currently on 70% oxygen via Airvo, she appears comfortable at rest and does not complain of any chest pain or fever or chills. Objective Data Objective Data Vital Signs: Vital Signs Temp Pulse Resp BP Pulse Ox 98.4 F 68 17 120/78 96 07/26/21 16:00 07/26/21 16:00 07/26/21 16:00 07/26/21 16:00 07/26/21 16:00 Oxygen Flow Rate (L/min) 60 Oxygen Delivery Method Airvo Weight: 132.8 kg Body Mass Index (BMI) 48.6 Intake & Output: Intake and Output for Last 24 Hours 07/24/21 07/25/21 07/26/21 23:59 23:59 23:59 Intake Total 450 / 450 884.5 / 1284.5 1350 / 1350 Output Total 2400 / 2900 1750 / 1750 Balance 450 / 450 -1515.5 / -1615.5 -400 / -400 Lab / Micro Data Result Diagrams: 07/26/21 04:20 07/26/21 04:20 Labs: Laboratory Results - last 24 hr 07/26/21 04:20: WBC 14.7 H, RBC 4.31, Hgb 12.2, Hct 36.0 L, MCV 83.5, MCH 28.3, MCHC 33.9, RDW Std Deviation 37.3, RDW Coeff of Donna 12.2, Plt Count 356, MPV 9.5, Immature Gran % (Auto) 2.200 H, Neut % (Auto) 83.0 H, Lymph % (Auto) 7.1 L, [place] % (Auto) 6.3, Eos % (Auto) 1.2, Baso % (Auto) 0.2, Absolute Neuts (auto) 12.2 H, Absolute Lymphs (auto) 1.05, Nucleated RBC % 0 07/26/21 04:20: Sodium 139, Potassium 4.2, Chloride 105, Carbon Dioxide 29.0, Anion Gap 5, BUN 15, Creatinine 0.52 L, Estim Creat Clear Calc 122.94, Est GFR (MDRD) Af Amer 167, Est GFR (MDRD) Non-Af 138, BUN/Creatinine Ratio 28.9 H, Glucose 96, Calcium 8.1 L, Total Bilirubin 0.20, AST 10 L, ALT 21, Alkaline Phosphatase 55, Total Protein 6.2 L, Albumin 2.2 L, Globulin 4.0, Albumin/Globulin Ratio 0.6 L Micro: Microbiology 07/18/21 21:50 Blood Culture (Wb) - Anticubital Left Blood Culture - Final No growth in 5 days. 07/18/21 21:53 Blood Culture (Wb) - Anticubital Right Blood Culture - Final No growth in 5 days. 07/19/21 16:55 Sputum, Expectorated/Coughed Gram Stain - Final 07/19/21 16:55 Sputum, Expectorated/Coughed Respiratory Culture - Final Streptococcus pneumoniae 07/18/21 22:00 Urine, Clean Catch Urine Culture - Final Mixed Gram Pos & Gram Neg Org Physical Exam Const alert, oriented x3, no apparent distress and healthy appearing General Appearance: cooperative, well kempt and well developed Orientation / Consciousness: awake, oriented to person, oriented to place and oriented to time Nutritional Appearance: morbidly obese HEENT normocephalic and moist oral mucous membranes Eyes PERRL, EOMs intact bilaterally and conjunctivae normal Neck nuchal rigidity, supple, no JVD and thyroid normal General: trachea midline Resp normal respiratory effort and clear to auscultation bilaterally Auscultation: Negative for rales, rhonchi or wheezes Cardio regular rate, regular rhythm, no murmurs, no rub and no gallops GI normal to inspection, nondistended, normoactive bowel sounds, soft to palpation, non-tender and non-distended Extremity no clubbing, cyanosis or edema Skin no rashes or lesions noted General Skin Exam: no breakdown Neuro oriented x3, CN's II-XII intact bilaterally, no focal motor deficits and no sensory deficits noted Sensorium / Orientation: awake and alert Speech: speech normal Psych thought process normal and affect normal Assessment & Plan Assessment/Plan (1) COVID-19: PLAN: 1. COVID-19 pneumonia-continue present medication-patient is on baricitinib and dexamethasone #2 acute hypoxic respiratory failure-patient is currently on Airvo, pulmonary medicine is seeing the patient in consultation. Patient's respiratory status does not appear to be declining at this time. #3 morbid obesity #4 hypokalemia-corrected #5 chronic anxiety-patient is on Effexor Charges/Coding Visit Charges Inpatient E&M: 51909 Subs Hosp L2
[2021-07-26] MEDS: Furosemide 40 MG Tablet PO (21:05)
[2021-07-26] MEDS: MELATONIN 10 MG TABLET PO (21:06)
[2021-07-26] MEDS: Amox/Clavulanate 875 MG Tablet PO (21:06)
[2021-07-27] VITALS (15 sets, daily range): BP systolic 103–126; BP diastolic 51–73; PULSE 55–97; RESP 16–28; TEMP 36.4–36.9; O2SAT 91–99
[2021-07-27] MEDS: 0.9% Saline Lock 10 ML Syringe IV (05:08)
--- NOTE | 2021-07-27 06:27 | PCM.PN.INT ---
Assessment & Plan Assessment/Plan (1) Acute hypoxemic respiratory failure: (2) COVID-19: PLAN: RECOMMENDATIONS: 1. Continue to wean FiO2 as tolerated for saturations greater than 90%. 2. Continue antimicrobials to complete treatment course, per ID recommendations. 3. Continue prophylactic Lovenox twice daily. 4. Continue Decadron and baricitinib to complete treatment courses. 5. Encourage incentive spirometer use and mobilize patient as tolerated. 6. Diuretics, as needed, to maintain euvolemic state. IMPRESSIONS: 1. Acute hypoxemic respiratory failure secondary to COVID-19 with pneumococcus pneumonia superinfection The patient presented to the hospital with progressive Covid symptoms which initially began on the . CTA chest showed no evidence for PE. Therefore, prophylactic Lovenox will be continued. The patient has completed a treatment course of remdesivir. She remains on baricitinib and Decadron, which will be continued to complete treatment courses. The patient remains on appropriate antimicrobials, given pneumococcus identified from sputum culture. Awake prone positioning was encouraged. Continue heated high flow oxygen and wean FiO2 for saturations greater than 90%. Diuretics can be utilized as needed to maintain euvolemic state. 2. Morbid obesity/anxiety Complicates care, management, recovery and prognosis. Continue as needed anxiolytic therapy per hospitalist. This note was generated with [employer] dictation software. It may contain incorrect words, spelling, and punctuation that were not noted in checking the note before signing. Subjective Subjective The patient was seen and examined at the bedside this morning. Events from the last 24 hours have been reviewed. The patient is currently afebrile, hemodynamically stable and maintaining appropriate oxygen saturations on Airvo heated high flow with an FiO2 requirement of 55% and flow rate of 60 L/min. She is currently documented to be overall net -3.6 L for the hospitalization. The patient remains on antimicrobials, Decadron, twice daily Lovenox and baricitinib. She is currently sitting in her bedside recliner without any specific complaints. Objective Data Objective Data The patient's most recent lab work, culture data and imaging studies have all been personally reviewed. Sputum culture was positive for Streptococcus pneumonia. Vital Signs: Vital Signs Temp Pulse Resp BP Pulse Ox 97.6 F L 60 24 H 114/73 97 07/27/21 05:00 07/27/21 05:00 07/27/21 05:00 07/27/21 05:00 07/27/21 05:00 Oxygen Flow Rate (L/min) 60 Oxygen Delivery Method Airvo Weight: 130.499 kg Body Mass Index (BMI) 48.6 Intake & Output: Intake and Output for Last 24 Hours 07/25/21 07/26/21 07/27/21 23:59 23:59 23:59 Intake Total 884.5 / 1284.5 1582.75 / 1582.75 60 / 60 Output Total 2400 / 2900 1750 / 2525 1100 / 1100 Balance -1515.5 / -1615.5 -167.25 / -942.25 -1040 / -1040 Lab / Micro Data Attestation: I reviewed the patient's lab results. Result Diagrams: 07/26/21 04:20 07/26/21 04:20 Micro: Microbiology 07/18/21 21:50 Blood Culture (Wb) - Anticubital Left Blood Culture - Final No growth in 5 days. 07/18/21 21:53 Blood Culture (Wb) - Anticubital Right Blood Culture - Final No growth in 5 days. 07/19/21 16:55 Sputum, Expectorated/Coughed Gram Stain - Final 07/19/21 16:55 Sputum, Expectorated/Coughed Respiratory Culture - Final Streptococcus pneumoniae 07/18/21 22:00 Urine, Clean Catch Urine Culture - Final Mixed Gram Pos & Gram Neg Org Physical Exam Const alert and no apparent distress Constitutional Narrative: Sitting in bedside recliner with Airvo in place. General Appearance: cooperative Nutritional Appearance: morbidly obese HEENT normocephalic, head/scalp atraumatic and moist oral mucous membranes Eyes PERRL, EOMs intact bilaterally and conjunctivae normal Neck supple General: trachea midline Chest inspection of chest normal Resp Effort and Inspection: Negative for labored Auscultation: diminished lung sounds; Negative for rales, rhonchi or wheezes Cardio S1 normal heart sound and S2 normal heart sound Rate: bradycardia GI normal to inspection, nondistended, normoactive bowel sounds Extremity no clubbing, cyanosis or edema Skin no rashes or lesions noted Neuro CN's II-XII intact bilaterally, moves all extremities and no focal motor deficits Psych cooperative and affect normal Charges/Coding Visit Charges Inpatient E&M: 19613 Subs Hosp L2
[2021-07-27] MEDS: Venlafaxine XR 37.5 MG Capsule PO (09:39)
[2021-07-27] MEDS: Multivitamins,Ther W-Minerals Tablet 1 TABLET PO (09:39)
[2021-07-27] MEDS: Meloxicam 15 MG Tablet PO (09:40)
[2021-07-27] MEDS: dexAMETHasone 2 MG TABLET 6 MG PO (09:40)
[2021-07-27] MEDS: Ascorbic Acid 500 MG Tablet 1000 MG PO ×2 (09:40→16:52)
[2021-07-27] MEDS: Amox/Clavulanate 875 MG Tablet PO ×2 (09:40→21:10)
[2021-07-27] MEDS: Cholecalciferol (VIT D3) 25 MCG TABLET (1,000 UNITS) PO (09:40)
[2021-07-27] MEDS: Furosemide 40 MG Tablet PO (09:40)
[2021-07-27] MEDS: Enoxaparin 40 MG/0.4 ML Syringe SC ×2 (09:40→21:10)
[2021-07-27] MEDS: guaiFENesin 1,200 MG Tablet 1200 MG PO ×2 (09:40→21:10)
--- NOTE | 2021-07-27 14:52 | NURSING ---
pt reports being up to bathroom 4 times now since shown how to manuever with wires and monitors and o2 extension tubing added. pt still reports some dyspnea when up but that just stops and rests. no needs at this time. o2 still maintained at 10l
--- NOTE | 2021-07-27 16:56 | NURSING ---
pt has been up in room all afternoon. resting pox on 10l 95% and pt reports that can move around more before it drops now. denies any needs. up in chair and supper tray given
--- NOTE | 2021-07-27 19:54 | PCM.PN.HOSP ---
Subjective Subjective Patient was seen and examined today, she is now on high flow nasal cannula oxygen, she does not complain of any shortness of breath at rest. Objective Data Objective Data Vital Signs: Vital Signs Temp Pulse Resp BP Pulse Ox 98.0 F 82 28 H 115/62 93 07/27/21 13:35 07/27/21 15:42 07/27/21 13:35 07/27/21 13:35 07/27/21 13:35 Oxygen Flow Rate (L/min) 10 Oxygen Delivery Method Nasal Cannula Weight: 130.499 kg Body Mass Index (BMI) 48.6 Intake & Output: Intake and Output for Last 24 Hours 07/25/21 07/26/21 07/27/21 23:59 23:59 23:59 Intake Total 884.5 / 1284.5 1582.75 / 1582.75 420 / 420 Output Total 2400 / 2900 1750 / 2525 1100 / 1100 Balance -1515.5 / -1615.5 -167.25 / -942.25 -680 / -680 Lab / Micro Data Result Diagrams: 07/26/21 04:20 07/26/21 04:20 Micro: Microbiology 07/18/21 21:50 Blood Culture (Wb) - Anticubital Left Blood Culture - Final No growth in 5 days. 07/18/21 21:53 Blood Culture (Wb) - Anticubital Right Blood Culture - Final No growth in 5 days. 07/19/21 16:55 Sputum, Expectorated/Coughed Gram Stain - Final 07/19/21 16:55 Sputum, Expectorated/Coughed Respiratory Culture - Final Streptococcus pneumoniae 07/18/21 22:00 Urine, Clean Catch Urine Culture - Final Mixed Gram Pos & Gram Neg Org Physical Exam Const alert, oriented x3, no apparent distress and healthy appearing General Appearance: cooperative, well kempt and well developed Orientation / Consciousness: awake, oriented to person, oriented to place and oriented to time Nutritional Appearance: morbidly obese HEENT normocephalic and moist oral mucous membranes Eyes PERRL, EOMs intact bilaterally and conjunctivae normal Neck nuchal rigidity, supple, no JVD, thyroid normal and no carotid bruits General: trachea midline Resp normal respiratory effort and clear to auscultation bilaterally Auscultation: Negative for rales, rhonchi or wheezes Cardio regular rate, regular rhythm, no murmurs, no rub and no gallops GI normal to inspection, nondistended, normoactive bowel sounds, soft to palpation, non-tender and non-distended Extremity no clubbing, cyanosis or edema Skin no rashes or lesions noted General Skin Exam: no breakdown Neuro oriented x3, CN's II-XII intact bilaterally, no focal motor deficits and no sensory deficits noted Sensorium / Orientation: awake and alert Speech: speech normal Psych thought process normal and affect normal Assessment & Plan Assessment/Plan (1) COVID-19: PLAN: 1. COVID-19 pneumonia-continue present medication-patient is on baricitinib and dexamethasone #2 acute hypoxic respiratory failure-patient is currently on Airvo, pulmonary medicine is seeing the patient in consultation. Patient's respiratory status does appear to be improving at this time #3 morbid obesity #4 hypokalemia-corrected #5 chronic anxiety-patient is on Effexor Charges/Coding Visit Charges Inpatient E&M: 90264 Subs Hosp L2
[2021-07-27] MEDS: LORazepam 1 MG Tablet PO (21:09)
[2021-07-27] MEDS: MELATONIN 10 MG TABLET PO (21:10)
[2021-07-28] VITALS (9 sets, daily range): BP systolic 98–131; BP diastolic 51–73; PULSE 54–92; RESP 16–20; TEMP 36.6–36.7; O2SAT 91–96
--- NOTE | 2021-07-28 05:44 | PCM.PN.INT ---
Assessment & Plan Assessment/Plan (1) Acute hypoxemic respiratory failure: (2) COVID-19: PLAN: RECOMMENDATIONS: 1. Continue to wean supplemental oxygen for saturations greater than 90%. 2. Continue antimicrobials to complete treatment course, per ID recommendations. 3. Continue prophylactic Lovenox twice daily. 4. Continue Decadron and baricitinib to complete treatment courses. 5. Encourage incentive spirometer use and mobilize patient as tolerated. 6. Diuretics, as needed, to maintain euvolemic state. IMPRESSIONS: 1. Acute hypoxemic respiratory failure secondary to COVID-19 with pneumococcus pneumonia superinfection The patient presented to the hospital with progressive Covid symptoms which initially began on the . CTA chest showed no evidence for PE. Therefore, prophylactic Lovenox will be continued. The patient has completed a treatment course of remdesivir. She remains on baricitinib and Decadron, which will be continued to complete treatment courses. The patient remains on appropriate antimicrobials, given pneumococcus identified from sputum culture. Awake prone positioning was encouraged. Continue to wean supplemental oxygen for saturations greater than 90%. Diuretics can be utilized as needed to maintain euvolemic state. 2. Morbid obesity/anxiety Complicates care, management, recovery and prognosis. Continue as needed anxiolytic therapy per hospitalist. This note was generated with [employer] dictation software. It may contain incorrect words, spelling, and punctuation that were not noted in checking the note before signing. Subjective Subjective The patient was seen and examined at the bedside this morning. Events from the last 24 hours have been reviewed. The patient is currently afebrile, hemodynamically stable and maintaining appropriate oxygen saturations on 10 L/min via nasal cannula. She is currently documented to be overall net -2.8 L for the hospitalization. The patient remains on antimicrobials, Decadron, twice daily Lovenox and baricitinib. Objective Data Objective Data The patient's most recent lab work, culture data and imaging studies have all been personally reviewed. Sputum culture was positive for Streptococcus pneumonia. Vital Signs: Vital Signs Temp Pulse Resp BP Pulse Ox 98.1 F 63 20 H 131/65 H 96 07/28/21 05:00 07/28/21 05:00 07/28/21 05:00 07/28/21 05:00 07/28/21 05:00 Oxygen Flow Rate (L/min) 10 Oxygen Delivery Method Nasal Cannula Weight: 130.499 kg Body Mass Index (BMI) 48.6 Intake & Output: Intake and Output for Last 24 Hours 07/26/21 07/27/21 07/28/21 23:59 23:59 23:59 Intake Total 1582.75 / 1582.75 420 / 900 480 / 480 Output Total 1750 / 2525 1100 / 1100 Balance -167.25 / -942.25 -680 / -200 480 / 480 Lab / Micro Data Attestation: I reviewed the patient's lab results. Result Diagrams: 07/26/21 04:20 07/26/21 04:20 Micro: Microbiology 07/18/21 21:50 Blood Culture (Wb) - Anticubital Left Blood Culture - Final No growth in 5 days. 07/18/21 21:53 Blood Culture (Wb) - Anticubital Right Blood Culture - Final No growth in 5 days. 07/19/21 16:55 Sputum, Expectorated/Coughed Gram Stain - Final 07/19/21 16:55 Sputum, Expectorated/Coughed Respiratory Culture - Final Streptococcus pneumoniae 07/18/21 22:00 Urine, Clean Catch Urine Culture - Final Mixed Gram Pos & Gram Neg Org Physical Exam Const alert and no apparent distress Constitutional Narrative: General Appearance: cooperative Nutritional Appearance: morbidly obese HEENT normocephalic, head/scalp atraumatic and moist oral mucous membranes Eyes PERRL, EOMs intact bilaterally and conjunctivae normal Neck supple General: trachea midline Chest inspection of chest normal Resp Effort and Inspection: Negative for labored Auscultation: diminished lung sounds; Negative for rales, rhonchi or wheezes Cardio S1 normal heart sound, S2 normal heart sound and no murmurs Rate: bradycardia GI normal to inspection, nondistended, normoactive bowel sounds Extremity no clubbing, cyanosis or edema Skin no rashes or lesions noted Neuro CN's II-XII intact bilaterally, moves all extremities and no focal motor deficits Psych cooperative and affect normal Charges/Coding Visit Charges Inpatient E&M: 66176 Subs Hosp L2
[2021-07-28] MEDS: Meloxicam 15 MG Tablet PO (08:53)
[2021-07-28] MEDS: dexAMETHasone 2 MG TABLET 6 MG PO (08:53)
[2021-07-28] MEDS: Furosemide 40 MG Tablet PO (08:54)
[2021-07-28] MEDS: Cholecalciferol (VIT D3) 25 MCG TABLET (1,000 UNITS) PO (08:54)
[2021-07-28] MEDS: Venlafaxine XR 37.5 MG Capsule PO (08:54)
[2021-07-28] MEDS: Multivitamins,Ther W-Minerals Tablet 1 TABLET PO (08:54)
[2021-07-28] MEDS: Ascorbic Acid 500 MG Tablet 1000 MG PO ×2 (08:54→16:52)
[2021-07-28] MEDS: Enoxaparin 40 MG/0.4 ML Syringe SC ×2 (08:55→20:36)
[2021-07-28] MEDS: guaiFENesin 1,200 MG Tablet 1200 MG PO ×2 (08:55→20:36)
[2021-07-28] MEDS: Amox/Clavulanate 875 MG Tablet PO ×2 (08:55→20:36)
--- NOTE | 2021-07-28 13:22 | PCM.PN.HOSP ---
Subjective Subjective Patient states that overall she is feeling much better. She states that at times her anxiety still gets the better of her but she is improved and currently on 9 L heated high flow nasal cannula. She has no acute complaints at this time. Objective Data Objective Data Vital Signs: Vital Signs Temp Pulse Resp BP Pulse Ox 97.8 F 92 18 110/62 91 07/28/21 11:33 07/28/21 11:33 07/28/21 11:33 07/28/21 11:33 07/28/21 11:33 Oxygen Flow Rate (L/min) 9 Oxygen Delivery Method Nasal Cannula Weight: 130.39 kg Body Mass Index (BMI) 48.6 Intake & Output: Intake and Output for Last 24 Hours 07/26/21 07/27/21 07/28/21 23:59 23:59 23:59 Intake Total 1582.75 / 1582.75 420 / 900 1520 / 1520 Output Total 1750 / 2525 1100 / 1100 Balance -167.25 / -942.25 -680 / -200 1520 / 1520 Lab / Micro Data Result Diagrams: 07/26/21 04:20 07/26/21 04:20 Micro: Microbiology 07/18/21 21:50 Blood Culture (Wb) - Anticubital Left Blood Culture - Final No growth in 5 days. 07/18/21 21:53 Blood Culture (Wb) - Anticubital Right Blood Culture - Final No growth in 5 days. 07/19/21 16:55 Sputum, Expectorated/Coughed Gram Stain - Final 07/19/21 16:55 Sputum, Expectorated/Coughed Respiratory Culture - Final Streptococcus pneumoniae 07/18/21 22:00 Urine, Clean Catch Urine Culture - Final Mixed Gram Pos & Gram Neg Org Physical Exam Const alert, oriented x3, no apparent distress and healthy appearing Constitutional Narrative: Morbidly obese white female sitting up in a chair at the bedside, on heated high flow nasal cannula and appears comfortable at this time, nontoxic General Appearance: cooperative, well kempt and well developed Orientation / Consciousness: awake, oriented to person, oriented to place and oriented to time Exam Limitations: no limitations Nutritional Appearance: morbidly obese HEENT normocephalic, head/scalp atraumatic and moist oral mucous membranes HEENT Narrative: No thrush Head and Scalp: normocephalic Neck nuchal rigidity and thyroid normal General: trachea midline Resp normal respiratory effort, no retractions, no use of accessory muscles and clear to auscultation bilaterally Resp Narrative: Diffusely diminished Auscultation: Negative for crackles, rales, rhonchi or wheezes Cardio regular rate, regular rhythm, S1 normal heart sound, S2 normal heart sound, no murmurs, no rub, no gallops, no clicks and no JVD GI normal to inspection, nondistended, normoactive bowel sounds, soft to palpation, non-tender and non-distended GI Narrative: Patient has morbid obesity Extremity no clubbing, cyanosis or edema Peripheral Pulses: Yes pulses 2+ throughout Skin General Skin Exam: no breakdown Neuro oriented x3, moves all extremities and no focal motor deficits Sensorium / Orientation: awake and alert Speech: speech normal Psych thought process normal Assessment & Plan Assessment/Plan (1) COVID-19: PLAN: Acute hypoxic respiratory failure secondary to COVID-19 pneumonia -Symptoms started 07/13/2021 and patient will need quarantine until 08/02/2021 -Recommend vaccination after discharge as patient has not been immunized -Patient has been weaned to heated high flow nasal cannula at 9 L with an oxygen saturation at 90 to 93% -Completed remdesivir -Completed Decadron -Baricitinib dose -I-S and Acapella ordered--> discussed importance of utilization with patient and instructed in frequency -Patient has been very compliant -Encourage prone lying and mobility as able -Continue Lasix 40 mg p.o. daily -Tylenol for fever -CTA on admission was negative for pulmonary embolus -Appreciate pulmonary and ID input -Transfer to medical floor Strep pneumo pneumonia -Antibiotics completed Anxiety -Continue Effexor -Continue as needed Ativan Morbid obesity -BMI 48.7 -Complicates overall treatment, prognosis, and outcomes -Creases risk for intubation with COVID-19 DVT prophylaxis -Lovenox 40 mg subcu twice daily -SCDs CODE STATUS -Full code Charges/Coding Visit Charges Inpatient E&M: 13039 Subs Hosp L2
[2021-07-28] MEDS: MELATONIN 10 MG TABLET PO (23:57)
[2021-07-29 02:34] VITALS: BP 104/54; PULSE 54; RESP 18; TEMP 36.9; O2SAT 95
[2021-07-29 07:24] VITALS: O2SAT 95
[2021-07-29 07:42] LABS: Anion Gap 5 (5-15); BUN 16 mg/dL (7-18); Calcium,Total 8.4 mg/dL (8.5-10.1); Chloride 106 mmol/L (98-107); Creatinine, Serum 0.57 mg/dL (0.55-1.02); EST Glomerular Filtration Rate 124 mL/min (>60); Est Glom Filt Rate - Afr Amer 150 mL/min (>60); Estimated Creatinine Clearance 112.16 ml/min; Glucose 83 mg/dL (74-106); Sodium Level 139 mmol/L (136-145)
--- NOTE | 2021-07-29 08:21 | PN.CC_ITS ---
Assessment & Plan Assessment/Plan (1) Acute hypoxemic respiratory failure: (2) COVID-19: PLAN: RECOMMENDATIONS: 1. Continue to wean supplemental oxygen for saturations greater than 90%. 2. Continue antimicrobials to complete treatment course, per ID recommendations. 3. Continue prophylactic Lovenox twice daily. 4. Continue Decadron and baricitinib to complete treatment courses. 5. Encourage incentive spirometer use and mobilize patient as tolerated. 6. Diuretics, as needed, to maintain euvolemic state. 7. Given improving oxygenation status, will sign off. Please call with any additional questions. IMPRESSIONS: 1. Acute hypoxemic respiratory failure secondary to COVID-19 with pneumococcus pneumonia superinfection The patient presented to the hospital with progressive Covid symptoms which initially began on the . CTA chest showed no evidence for PE. Therefore, prophylactic Lovenox will be continued. The patient has completed a treatment course of remdesivir. She remains on baricitinib and Decadron, which will be continued to complete treatment courses. The patient remains on appropriate antimicrobials, given pneumococcus identified from sputum culture. Awake prone positioning was encouraged. Continue to wean supplemental oxygen for saturations greater than 90%. Diuretics can be utilized as needed to maintain euvolemic state. 2. Morbid obesity/anxiety Complicates care, management, recovery and prognosis. Continue as needed anxiolytic therapy per hospitalist. This note was generated with [employer] dictation software. It may contain incorrect words, spelling, and punctuation that were not noted in checking the note before signing. Subjective Subjective The patient was seen and examined at the bedside this morning. Events from the last 24 hours have been reviewed. The patient is currently afebrile, hemodynamically stable and maintaining appropriate oxygen saturations on 9 L/min via nasal cannula. The patient remains on antimicrobials, twice daily Lovenox and baricitinib. She has completed her treatment course of Decadron. Objective Data Objective Data The patient's most recent lab work, culture data and imaging studies have all been personally reviewed. Sputum culture was positive for Streptococcus pneumonia. Vital Signs: Vital Signs Temp Pulse Resp BP Pulse Ox 98.4 F 54 L 18 104/54 L 95 07/29/21 02:34 07/29/21 02:34 07/29/21 02:34 07/29/21 02:34 07/29/21 07:24 Oxygen Flow Rate (L/min) 9 Oxygen Delivery Method Nasal Cannula Weight: 128.9 kg Body Mass Index (BMI) 48.6 Intake & Output: Intake and Output for Last 24 Hours 07/27/21 07/28/21 07/29/21 23:59 23:59 23:59 Intake Total 420 / 900 2170 / 2670 900 / 900 Output Total 1100 / 1100 Balance -680 / -200 2170 / 2670 900 / 900 Lab / Micro Data Attestation: I reviewed the patient's lab results. Result Diagrams: 07/26/21 04:20 07/29/21 06:37 Labs: Laboratory Results - last 24 hr 07/29/21 06:37: Sodium 139, Potassium 4.0, Chloride 106, Carbon Dioxide 28.0, Anion Gap 5, BUN 16, Creatinine 0.57, Estim Creat Clear Calc 112.16, Est GFR (MDRD) Af Amer 150, Est GFR (MDRD) Non-Af 124, BUN/Creatinine Ratio 28.0 H, Glucose 83, Calcium 8.4 L Micro: Microbiology 07/18/21 21:50 Blood Culture (Wb) - Anticubital Left Blood Culture - Final No growth in 5 days. 07/18/21 21:53 Blood Culture (Wb) - Anticubital Right Blood Culture - Final No growth in 5 days. 07/19/21 16:55 Sputum, Expectorated/Coughed Gram Stain - Final 07/19/21 16:55 Sputum, Expectorated/Coughed Respiratory Culture - Final Streptococcus pneumoniae 07/18/21 22:00 Urine, Clean Catch Urine Culture - Final Mixed Gram Pos & Gram Neg Org Physical Exam Const alert and no apparent distress Constitutional Narrative: General Appearance: cooperative Nutritional Appearance: morbidly obese HEENT normocephalic, head/scalp atraumatic and moist oral mucous membranes Eyes PERRL, EOMs intact bilaterally and conjunctivae normal Neck supple General: trachea midline Chest inspection of chest normal Resp Effort and Inspection: Negative for labored Auscultation: diminished lung sounds; Negative for rales, rhonchi or wheezes Cardio S1 normal heart sound, S2 normal heart sound and no murmurs Rate: bradycardia GI normal to inspection, nondistended, normoactive bowel sounds Extremity no clubbing, cyanosis or edema Skin no rashes or lesions noted Neuro CN's II-XII intact bilaterally, moves all extremities and no focal motor deficits Psych cooperative and affect normal Charges/Coding Visit Charges Inpatient E&M: 59687 Subs Hosp L2
[2021-07-29] MEDS: Cholecalciferol (VIT D3) 25 MCG TABLET (1,000 UNITS) PO (09:00)
[2021-07-29] MEDS: Ascorbic Acid 500 MG Tablet 1000 MG PO ×2 (09:01→16:01)
[2021-07-29] MEDS: Venlafaxine XR 37.5 MG Capsule PO (09:01)
[2021-07-29] MEDS: Amox/Clavulanate 875 MG Tablet PO ×2 (09:01→22:02)
[2021-07-29] MEDS: guaiFENesin 1,200 MG Tablet 1200 MG PO ×2 (09:01→22:02)
[2021-07-29] MEDS: Furosemide 40 MG Tablet PO (09:02)
[2021-07-29] MEDS: Multivitamins,Ther W-Minerals Tablet 1 TABLET PO (09:02)
[2021-07-29] MEDS: Meloxicam 15 MG Tablet PO (09:02)
[2021-07-29] MEDS: Enoxaparin 40 MG/0.4 ML Syringe SC ×2 (09:02→22:01)
[2021-07-29 09:05] VITALS: BP 111/58; PULSE 66; RESP 16; TEMP 36.3; O2SAT 94
--- NOTE | 2021-07-29 12:00 | PCM.PN.HOSP ---
Subjective Subjective Patient has been able to be weaned to 9 L nasal cannula today. States she continues to feel improved. Is anxious to go home but trying to remain patient. Objective Data Objective Data Vital Signs: Vital Signs Temp Pulse Resp BP Pulse Ox 97.3 F L 66 16 111/58 L 94 07/29/21 09:05 07/29/21 09:05 07/29/21 09:05 07/29/21 09:05 07/29/21 09:05 Oxygen Flow Rate (L/min) 9 Oxygen Delivery Method Nasal Cannula Weight: 128.9 kg Body Mass Index (BMI) 48.6 Intake & Output: Intake and Output for Last 24 Hours 07/27/21 07/28/21 07/29/21 23:59 23:59 23:59 Intake Total 420 / 900 2170 / 2670 900 / 900 Output Total 1100 / 1100 Balance -680 / -200 2170 / 2670 900 / 900 Lab / Micro Data Result Diagrams: 07/26/21 04:20 07/29/21 06:37 Labs: Laboratory Results - last 24 hr 07/29/21 06:37: Sodium 139, Potassium 4.0, Chloride 106, Carbon Dioxide 28.0, Anion Gap 5, BUN 16, Creatinine 0.57, Estim Creat Clear Calc 112.16, Est GFR (MDRD) Af Amer 150, Est GFR (MDRD) Non-Af 124, BUN/Creatinine Ratio 28.0 H, Glucose 83, Calcium 8.4 L Micro: Microbiology 07/18/21 21:50 Blood Culture (Wb) - Anticubital Left Blood Culture - Final No growth in 5 days. 07/18/21 21:53 Blood Culture (Wb) - Anticubital Right Blood Culture - Final No growth in 5 days. 07/19/21 16:55 Sputum, Expectorated/Coughed Gram Stain - Final 07/19/21 16:55 Sputum, Expectorated/Coughed Respiratory Culture - Final Streptococcus pneumoniae 07/18/21 22:00 Urine, Clean Catch Urine Culture - Final Mixed Gram Pos & Gram Neg Org Physical Exam Narrative Middle-aged morbidly obese white female sitting up in bed, appears quite anxious and short of breath Const alert, oriented x3, no apparent distress and healthy appearing Constitutional Narrative: Morbidly obese white female sitting up in a chair at the bedside, on heated high flow nasal cannula and appears comfortable at this time, nontoxic, watching [employer] movie General Appearance: cooperative, well kempt and well developed Orientation / Consciousness: awake, oriented to person, oriented to place and oriented to time Exam Limitations: no limitations Nutritional Appearance: morbidly obese HEENT normocephalic, head/scalp atraumatic and moist oral mucous membranes HEENT Narrative: No thrush Head and Scalp: normocephalic Neck nuchal rigidity and thyroid normal General: trachea midline Resp normal respiratory effort, no retractions, no use of accessory muscles and clear to auscultation bilaterally Resp Narrative: Diffusely diminished Auscultation: Negative for crackles, rales, rhonchi or wheezes Cardio regular rate, regular rhythm, S1 normal heart sound, S2 normal heart sound, no murmurs, no rub, no gallops, no clicks and no JVD GI normal to inspection, nondistended, normoactive bowel sounds, soft to palpation, non-tender and non-distended GI Narrative: Patient has morbid obesity Extremity no clubbing, cyanosis or edema Peripheral Pulses: Yes pulses 2+ throughout Skin General Skin Exam: no breakdown Neuro oriented x3, moves all extremities and no focal motor deficits Sensorium / Orientation: awake and alert Speech: speech normal Psych thought process normal Assessment & Plan Assessment/Plan (1) COVID-19: PLAN: Acute hypoxic respiratory failure secondary to COVID-19 pneumonia -Symptoms started 07/13/2021 and patient will need quarantine until 08/02/2021 -Recommend vaccination after discharge as patient has not been immunized -Patient has been weaned to heated high flow nasal cannula at 9 L with an oxygen saturation at 90 to 93% -Completed remdesivir -Completed Decadron -Baricitinib dose -I-S and Acapella -Patient has been very compliant -Encourage prone lying and mobility as able -Continue Lasix 40 mg p.o. daily -Tylenol for fever -CTA on admission was negative for pulmonary embolus -Appreciate pulmonary and ID input Strep pneumo pneumonia -Antibiotics completed Anxiety -Continue Effexor -Continue as needed Ativan Morbid obesity -BMI 48.7 -Complicates overall treatment, prognosis, and outcomes -Creases risk for intubation with COVID-19 DVT prophylaxis -Lovenox 40 mg subcu twice daily -SCDs CODE STATUS -Full code Charges/Coding Visit Charges Inpatient E&M: 41280 Subs Hosp L2
[2021-07-29 13:22] VITALS: BP 113/67; PULSE 97; RESP 16; TEMP 36.8; O2SAT 94
[2021-07-29 22:06] VITALS: BP 105/65; PULSE 73; RESP 18; TEMP 36.8; O2SAT 95
[2021-07-29] MEDS: MELATONIN 10 MG TABLET PO (23:52)
[2021-07-30] VITALS (9 sets, daily range): BP systolic 98–121; BP diastolic 50–70; PULSE 64–85; RESP 16–18; TEMP 36.6–37.2; O2SAT 93–96
[2021-07-30] MEDS: Venlafaxine XR 37.5 MG Capsule PO (09:50)
[2021-07-30] MEDS: Furosemide 40 MG Tablet PO (09:50)
[2021-07-30] MEDS: Ascorbic Acid 500 MG Tablet 1000 MG PO ×2 (09:50→21:02)
[2021-07-30] MEDS: Meloxicam 15 MG Tablet PO (09:50)
[2021-07-30] MEDS: Enoxaparin 40 MG/0.4 ML Syringe SC ×2 (09:50→21:01)
[2021-07-30] MEDS: Cholecalciferol (VIT D3) 25 MCG TABLET (1,000 UNITS) PO (09:51)
[2021-07-30] MEDS: Amox/Clavulanate 875 MG Tablet PO ×2 (09:51→21:02)
[2021-07-30] MEDS: Multivitamins,Ther W-Minerals Tablet 1 TABLET PO (09:51)
[2021-07-30] MEDS: guaiFENesin 1,200 MG Tablet 1200 MG PO ×2 (09:52→21:02)
--- NOTE | 2021-07-30 13:29 | PCM.PN.HOSP ---
Subjective Subjective Patient reports that she is still feeling better. Anxious to be able to go home but does understand what the requirements are for her to be able to go home. Objective Data Objective Data Vital Signs: Vital Signs Temp Pulse Resp BP Pulse Ox 98.4 F 64 18 115/70 93 07/30/21 13:15 07/30/21 13:15 07/30/21 13:15 07/30/21 13:15 07/30/21 13:15 Oxygen Flow Rate (L/min) 7 Oxygen Delivery Method Nasal Cannula Weight: 127.7 kg Body Mass Index (BMI) 48.6 Intake & Output: Intake and Output for Last 24 Hours 07/28/21 07/29/21 07/30/21 23:59 23:59 23:59 Intake Total 2170 / 2670 1900 / 1900 600 / 600 Balance 2170 / 2670 1900 / 1900 600 / 600 Lab / Micro Data Result Diagrams: 07/26/21 04:20 07/29/21 06:37 Micro: Microbiology 07/18/21 21:50 Blood Culture (Wb) - Anticubital Left Blood Culture - Final No growth in 5 days. 07/18/21 21:53 Blood Culture (Wb) - Anticubital Right Blood Culture - Final No growth in 5 days. 07/19/21 16:55 Sputum, Expectorated/Coughed Gram Stain - Final 07/19/21 16:55 Sputum, Expectorated/Coughed Respiratory Culture - Final Streptococcus pneumoniae 07/18/21 22:00 Urine, Clean Catch Urine Culture - Final Mixed Gram Pos & Gram Neg Org Physical Exam Const alert, oriented x3, no apparent distress and healthy appearing Constitutional Narrative: Morbidly obese white female sitting up in a chair at the bedside, on heated high flow nasal cannula and appears comfortable at this time, nontoxic General Appearance: cooperative, well kempt and well developed Orientation / Consciousness: awake, oriented to person, oriented to place and oriented to time Exam Limitations: no limitations Nutritional Appearance: morbidly obese HEENT normocephalic, head/scalp atraumatic and moist oral mucous membranes Head and Scalp: normocephalic Neck nuchal rigidity and thyroid normal General: trachea midline Resp normal respiratory effort, no retractions, no use of accessory muscles and clear to auscultation bilaterally Resp Narrative: Diffusely diminished Auscultation: Negative for crackles, rales, rhonchi or wheezes Cardio regular rate, regular rhythm, S1 normal heart sound, S2 normal heart sound, no murmurs, no rub, no gallops, no clicks and no JVD GI normal to inspection, nondistended, normoactive bowel sounds, soft to palpation, non-tender and non-distended GI Narrative: Patient has morbid obesity Extremity no clubbing, cyanosis or edema Peripheral Pulses: Yes pulses 2+ throughout Skin no rashes or lesions noted General Skin Exam: no breakdown Neuro oriented x3, moves all extremities and no focal motor deficits Sensorium / Orientation: awake and alert Speech: speech normal Psych thought process normal Assessment & Plan Assessment/Plan (1) COVID-19: PLAN: Acute hypoxic respiratory failure secondary to COVID-19 pneumonia -Symptoms started 07/13/2021 and patient will need quarantine until 08/02/2021 -Recommend vaccination after discharge as patient has not been immunized -Patient has been weaned to heated high flow nasal cannula at 9 L with an oxygen saturation at 90 to 93% -Completed remdesivir -Completed Decadron -Baricitinib dose -I-S and Acapella -Patient has been very compliant -Encourage prone lying and mobility as able -Continue Lasix 40 mg p.o. daily -Repeat BMP on 08/01/2021 -Tylenol for fever -CTA on admission was negative for pulmonary embolus -Appreciate pulmonary and ID input Strep pneumo pneumonia -Antibiotics completed Anxiety -Continue Effexor -Continue as needed Ativan Morbid obesity -BMI 48.7 -Complicates overall treatment, prognosis, and outcomes -Creases risk for intubation with COVID-19 DVT prophylaxis -Lovenox 40 mg subcu twice daily -SCDs CODE STATUS -Full code Charges/Coding Visit Charges Inpatient E&M: 70484 Subs Hosp L2
[2021-07-30] MEDS: Acetaminophen 325 MG Tablet 650 MG PO (21:01)
[2021-07-30] MEDS: MELATONIN 10 MG TABLET PO (23:15)
[2021-07-31 04:52] VITALS: BP 98/62; PULSE 71; RESP 18; TEMP 36.8; O2SAT 94
[2021-07-31 06:53] VITALS: O2SAT 94
[2021-07-31 08:29] VITALS: BP 108/62; PULSE 78; RESP 18; TEMP 37.2; O2SAT 94
[2021-07-31] MEDS: Enoxaparin 40 MG/0.4 ML Syringe SC ×2 (08:31→21:41)
[2021-07-31] MEDS: guaiFENesin 1,200 MG Tablet 1200 MG PO ×2 (08:32→21:41)
[2021-07-31] MEDS: Ascorbic Acid 500 MG Tablet 1000 MG PO ×2 (08:32→15:58)
[2021-07-31] MEDS: Meloxicam 15 MG Tablet PO (08:32)
[2021-07-31] MEDS: Amox/Clavulanate 875 MG Tablet PO ×2 (08:33→21:41)
[2021-07-31] MEDS: Cholecalciferol (VIT D3) 25 MCG TABLET (1,000 UNITS) PO (08:33)
[2021-07-31] MEDS: Multivitamins,Ther W-Minerals Tablet 1 TABLET PO (08:33)
[2021-07-31] MEDS: Venlafaxine XR 37.5 MG Capsule PO (08:34)
[2021-07-31] MEDS: Furosemide 40 MG Tablet PO (08:37)
[2021-07-31 11:58] VITALS: O2SAT 82; O2SAT 84; O2SAT 91
[2021-07-31] MEDS: Acetaminophen 325 MG Tablet 650 MG PO (12:06)
--- NOTE | 2021-07-31 12:45 | PCM.PN.HOSP ---
Subjective Subjective Patient has been weaned to 6 L nasal cannula at rest today. Sats are 94% on this. She states she is feeling well. Anxious for discharge which I told her I anticipate in the next 24 to 48 hours given the current information. Objective Data Objective Data Vital Signs: Vital Signs Temp Pulse Resp BP Pulse Ox 98.9 F 78 18 108/62 91 07/31/21 08:29 07/31/21 08:29 07/31/21 08:29 07/31/21 08:29 07/31/21 11:58 Oxygen Flow Rate (L/min) [At 0 REST on Room Air] Oxygen Flow Rate (L/min) [ 5 AMBULATING with Oxygen #1] Oxygen Flow Rate (L/min) 6 Oxygen Delivery Method Nasal Cannula Weight: 128.1 kg Body Mass Index (BMI) 48.6 Intake & Output: Intake and Output for Last 24 Hours 07/29/21 07/30/21 07/31/21 23:59 23:59 23:59 Intake Total 1900 / 1900 1880 / 1880 1050 / 1050 Balance 1900 / 1900 1880 / 1880 1050 / 1050 Lab / Micro Data Result Diagrams: 07/26/21 04:20 07/29/21 06:37 Micro: Microbiology 07/18/21 21:50 Blood Culture (Wb) - Anticubital Left Blood Culture - Final No growth in 5 days. 07/18/21 21:53 Blood Culture (Wb) - Anticubital Right Blood Culture - Final No growth in 5 days. 07/19/21 16:55 Sputum, Expectorated/Coughed Gram Stain - Final 07/19/21 16:55 Sputum, Expectorated/Coughed Respiratory Culture - Final Streptococcus pneumoniae 07/18/21 22:00 Urine, Clean Catch Urine Culture - Final Mixed Gram Pos & Gram Neg Org Physical Exam Const alert, oriented x3, no apparent distress and healthy appearing Constitutional Narrative: Morbidly obese white female sitting up in a chair at the bedside, on regular nasal cannula, appears comfortable, nontoxic General Appearance: cooperative, well kempt and well developed Orientation / Consciousness: awake, oriented to person, oriented to place and oriented to time Exam Limitations: no limitations Nutritional Appearance: morbidly obese HEENT normocephalic, head/scalp atraumatic and moist oral mucous membranes Head and Scalp: normocephalic Neck nuchal rigidity and thyroid normal General: trachea midline Resp normal respiratory effort, no retractions, no use of accessory muscles and clear to auscultation bilaterally Resp Narrative: Diffusely diminished Auscultation: Negative for crackles, rales, rhonchi or wheezes Cardio regular rate, regular rhythm, S1 normal heart sound, S2 normal heart sound, no murmurs, no rub, no gallops, no clicks and no JVD GI normal to inspection, nondistended, normoactive bowel sounds, soft to palpation, non-tender and non-distended GI Narrative: Patient has morbid obesity Extremity no clubbing, cyanosis or edema Peripheral Pulses: Yes pulses 2+ throughout Skin no rashes or lesions noted General Skin Exam: no breakdown Neuro oriented x3, moves all extremities and no focal motor deficits Sensorium / Orientation: awake and alert Speech: speech normal Psych thought process normal Assessment & Plan Assessment/Plan (1) COVID-19: PLAN: Acute hypoxic respiratory failure secondary to COVID-19 pneumonia -Symptoms started 07/13/2021 and patient will need quarantine until 08/02/2021 -Recommend vaccination after discharge as patient has not been immunized -Patient has been weaned to heated high flow nasal cannula at 6 L with an oxygen saturation at 94% -Completed remdesivir -Completed Decadron -Baricitinib dose -I-S and Acapella -Patient has been very compliant -Encourage prone lying and mobility as able -Continue Lasix 40 mg p.o. daily -Repeat BMP on 08/01/2021 -Tylenol for fever -CTA on admission was negative for pulmonary embolus -Appreciate pulmonary and ID input -Anticipate discharge in the next 24 to 48 hours with supplemental oxygen Strep pneumo pneumonia -Antibiotics completed Anxiety -Continue Effexor -Continue as needed Ativan Morbid obesity -BMI 48.7 -Complicates overall treatment, prognosis, and outcomes -Creases risk for intubation with COVID-19 DVT prophylaxis -Lovenox 40 mg subcu twice daily -SCDs CODE STATUS -Full code Charges/Coding Visit Charges Inpatient E&M: 26446 Subs Hosp L2
[2021-07-31 15:59] VITALS: BP 109/70; PULSE 87; RESP 18; TEMP 37; O2SAT 96
[2021-07-31 21:36] VITALS: BP 112/63; PULSE 77; RESP 18; TEMP 36.9; O2SAT 96
[2021-07-31] MEDS: MELATONIN 10 MG TABLET PO (21:41)
[2021-07-31] MEDS: 0.9% Saline Lock 10 ML Syringe IV (21:41)
[2021-08-01 02:27] VITALS: BP 101/52; PULSE 73; RESP 18; TEMP 36.5; O2SAT 95
[2021-08-01 07:16] VITALS: O2SAT 94
[2021-08-01 07:35] LABS: Anion Gap 7 (5-15); BUN 14 mg/dL (7-18); BUN/Creat Ratio 23.6 RATIO (10-20); Calcium,Total 8.3 mg/dL (8.5-10.1); Chloride 106 mmol/L (98-107); Creatinine, Serum 0.59 mg/dL (0.55-1.02); EST Glomerular Filtration Rate 119 mL/min (>60); Est Glom Filt Rate - Afr Amer 144 mL/min (>60); Estimated Creatinine Clearance 108.36 ml/min; Glucose 85 mg/dL (74-106); Sodium Level 140 mmol/L (136-145)
[2021-08-01 09:53] VITALS: BP 120/70; PULSE 97; RESP 18; TEMP 37.2; O2SAT 93
[2021-08-01] MEDS: Ascorbic Acid 500 MG Tablet 1000 MG PO (09:55)
[2021-08-01] MEDS: Enoxaparin 40 MG/0.4 ML Syringe SC (09:55)
[2021-08-01] MEDS: Furosemide 40 MG Tablet PO (09:55)
[2021-08-01] MEDS: guaiFENesin 1,200 MG Tablet 1200 MG PO (09:55)
[2021-08-01] MEDS: Amox/Clavulanate 875 MG Tablet PO (09:55)
[2021-08-01] MEDS: Venlafaxine XR 37.5 MG Capsule PO (09:55)
[2021-08-01] MEDS: Meloxicam 15 MG Tablet PO (09:56)
[2021-08-01] MEDS: Cholecalciferol (VIT D3) 25 MCG TABLET (1,000 UNITS) PO (09:56)
[2021-08-01] MEDS: Multivitamins,Ther W-Minerals Tablet 1 TABLET PO (09:56)
[2021-08-01 09:58] VITALS: O2SAT 87; O2SAT 90; O2SAT 93
--- NOTE | 2021-08-01 11:38 | DS.PCM_ITS ---
Providers Date of Admission: 07/19/21 Primary Care Physician: Dr. Jeanna Kate MD Consultations 07/20/21 07:31 Consult: Infectious Disease Routine Consulting Provider: Chris Vazquez Reason for Consult: COVID-baricitinib EMERGENT Consult: No Notified: Yes Date Notified: 07/20/21 Time Notified: 07:32 Method of Notification: Text Consult: [facility] Care [facility] Manager / Pulmonary Medicine Routine Consulting Provider: [facility] Reason for Consult: COVID with worsening hypoxia EMERGENT Consult: No Notified: Yes Date Notified: 07/20/21 Time Notified: 07:31 Method of Notification: Verbal Reason For Visit: ACUTE HYPOXEMIC RESPIRATORY FAILURE 2NDARY TO Diagnosis Discharge Diagnosis (1) COVID-19: Status: Acute Code(s): U07.1 - COVID-19 (2) Acute hypoxemic respiratory failure: Status: Acute Code(s): J96.01 - Acute respiratory failure with hypoxia Medications at Discharge Home Medications hydroxyzine pamoate 25 mg PO TID PRN PRN #15 cap 04/21/17 acetaminophen 325 mg capsule 325 mg PO ONCE PRN 10/16/20 cholecalciferol (vitamin D3) 25 mcg (1,000 unit) capsule 25 mcg PO DAILY 10/16/20 meloxicam 15 mg tablet 15 mg PO DAILY #30 tab 10/16/20 mirabegron 50 mg tablet,extended release 24 hr ea PO 10/16/20 multivitamin 1 tab PO DAILY 10/16/20 multivitamin with minerals 1 tab PO DAILY 10/16/20 topiramate 25 mg sprinkle capsule ea PO 10/16/20 venlafaxine 37.5 mg capsule,extended release 24 hr ea PO 10/16/20 albuterol sulfate [Ventolin HFA] 2 puff INHALATION Q4H PRN PRN #1 inhaler 07/16/21 Hospital Course Summary of Care Provided Minutes Spent on Discharge: 36 Hospital Course: Autumn Smith is a 41-year-old white female who presented to the emergency department at [facility] on 07/19/2021 with a chief complaint of shortness of breath. On admission she reported that it started 3 days prior to presentation and had associated symptoms including cough that was productive of greenish and sometimes clear sputum as well as fatigue, fever, chills, diaphoresis, and anorexia. She had diarrhea previously but had since resolved. She tested positive for Covid 8 days prior to presentation and had Covid-like symptoms a day prior to presentation. She did come the emergency department the day prior to admission and was discharged home on oxygen. While on 2 L nasal cannula she experienced worsening hypoxemia even with increasing her oxygen to 3 L her oxygen saturation was only about 81%. She was admitted to the hospital and placed on remdesivir and Decadron. She did require pretty significant up titration and her oxygen requirements quickly from 7 L to air Vo and was therefore transferred to the ICU on 07/20/2021. Her sputum culture that was performed on admission grew out strep pneumo pneumonia and she was started on ceftriaxone. During her hospitalization she completed a full course of antibiotics for eradication of her bacterial pneumonia. Given her worsening status, she was also initiated on baricitinib and received 13-14 doses prior to discharge. She completed Decadron and remdesivir courses. With time she was slowly able to be weaned off oxygen and transferred out of the ICU on 07/26/2021. She was weaned from air Vo to heated high flow nasal cannula and by 07/28/2021 had been weaned to 9 L. We were dietz able to wean her to the point or at discharge she was on 4 L at rest satting 95%. On 08/01/2021 we did an ambulatory pulse oximetry. Where she was found to be wearing 93% on 2 L nasal cannula at rest and 87% on 2 L nasal cannula with ambulation. Her oxygen saturation improved to 90% with up titration to 4 L. She was discharged home with supplemental oxygen 2 L at rest and 4 L with exertion. She was advised to continue quarantine until after 08/02/2021. She was also advised to obtain vaccination if she so desired after her quarantine was completed. We recommend follow-up with her primary care physician within the next 1 to 2 weeks and with pulmonology within the next month. She was discharged home in stable condition on 08/01/2021. Discharge diagnoses: Acute hypoxic respiratory failure COVID-19 pneumonia Strep pneumo pneumonia-resolved Anxiety Morbid obesity Physical Exam Const alert, oriented x3, no apparent distress and healthy appearing Constitutional Narrative: Morbidly obese white female sitting up in a chair at the bedside, on regular nasal cannula at 2 L, appears comfortable, nontoxic General Appearance: cooperative, comfortable, well kempt and well developed Orientation / Consciousness: awake, oriented to person, oriented to place and oriented to time Exam Limitations: no limitations Nutritional Appearance: morbidly obese HEENT normocephalic, head/scalp atraumatic, hearing grossly normal bilaterally and moist oral mucous membranes HEENT Narrative: No thrush, Mallampati 3, good dentition Eyes PERRL, EOMs intact bilaterally and conjunctivae normal Eyes Narrative: No scleral icterus Neck nuchal rigidity, no lymphadenopathy, supple, no JVD and thyroid normal Neck Narrative: Trachea midline, no thyroid enlarged General: trachea midline Resp normal respiratory effort, no retractions, no use of accessory muscles and clear to auscultation bilaterally Resp Narrative: Diffusely diminished Auscultation: Negative for crackles, rales, rhonchi or wheezes Cardio regular rate, regular rhythm, S1 normal heart sound, S2 normal heart sound, no murmurs, no rub, no gallops, no clicks and no JVD GI normal to inspection, nondistended, normoactive bowel sounds, soft to palpation, non-tender and non-distended GI Narrative: Patient has morbid obesity Extremity normal to inspection and no clubbing, cyanosis or edema Skin no rashes or lesions noted, no wounds, skin turgor normal and no jaundice General Skin Exam: no breakdown Neuro oriented x3, CN's II-XII intact bilaterally, moves all extremities and no focal motor deficits Sensorium / Orientation: awake and alert Speech: speech normal Psych thought process normal and affect normal Psych Narrative: Very pleasant and excited to be leaving Weight / BMI Weight Weight: 128.094 kg Body Mass Index (BMI) 48.6 ABG / Lab / Microbiology Data Result Diagrams: 07/26/21 04:20 08/01/21 06:55 Laboratory: Laboratory Results - last 24 hr 08/01/21 06:55: Sodium 140, Potassium 4.0, Chloride 106, Carbon Dioxide 27.0, Anion Gap 7, BUN 14, Creatinine 0.59, Estim Creat Clear Calc 108.36, Est GFR (MDRD) Af Amer 144, Est GFR (MDRD) Non-Af 119, BUN/Creatinine Ratio 23.6 H, Glucose 85, Calcium 8.3 L Microbiology: Microbiology 07/18/21 21:50 Blood Culture (Wb) - Anticubital Left Blood Culture - Final No growth in 5 days. 11/24/21 21:53 Blood Culture (Wb) - Anticubital Right Blood Culture - Final No growth in 5 days. 07/19/21 16:55 Sputum, Expectorated/Coughed Gram Stain - Final 07/19/21 16:55 Sputum, Expectorated/Coughed Respiratory Culture - Final Streptococcus pneumoniae 07/18/21 22:00 Urine, Clean Catch Urine Culture - Final Mixed Gram Pos & Gram Neg Org D/C Instructions Discharge Diet: No restrictions Discharge Activity: Return to Normal Activity Return to work on: 08/06/21 Meaningful Use Info Meaningful Use Diagnoses (Choose all that apply): None applicable Discharge Plan Admission Admit Date/Time: 07/19/21 00:03 Primary Reason for Your Visit: Acute hypoxic respiratory failure secondary to COVID-19 pneumonia Attending Provider: Patricia Villegas Primary Care Provider: Jeanna Kate Consulting Providers: Chris Vazquez ; Tony Rodriguez ; Chi Olivera ; Marylu Harvey BUSINESS TEAM LEADER Instructions Additional Instructions / Restrictions: 1. Will need quarantine until after 08/02/2021 2. Recommend vaccination and okay to receive vaccination after quarantine is complete Discharge Orders/Prescriptions Prescriptions: Continued mirabegron 50 mg tablet extended release 24 hr PO RF: 0 venlafaxine 37.5 mg capsule,extended release 24hr PO RF: 0 topiramate 25 mg capsule, sprinkle PO RF: 0 multivitamin with minerals [Hair,Skin and Nails] Tablet 1 tab PO DAILY RF: 0 cholecalciferol (vitamin D3) 25 mcg (1,000 unit) capsule 25 mcg PO DAILY RF: 0 multivitamin [Daily Multi-Vitamin] Tablet 1 tab PO DAILY RF: 0 acetaminophen [Tylenol] 325 mg capsule 325 mg PO ONCE PRN (Reason: Fever Or Pain) RF: 0 meloxicam [Mobic] 15 mg tablet 15 mg PO DAILY Qty: 30 RF: 0 hydroxyzine pamoate 25 MG capsule 25 mg PO TID PRN PRN (Reason: Anxiety) Qty: 15 RF: 0 albuterol sulfate [Ventolin HFA] 1 INHALER inhaler 2 puff inhalation Q4H PRN PRN (Reason: Wheezing) Qty: 1 RF: 0 Discontinued ibuprofen 200 mg capsule 200 mg PO Q6H PRN (Reason: Fever Or Pain) RF: 0 dexamethasone [Decadron] 6 mg tablet 6 mg PO DAILY Qty: 10 RF: 0 Referrals / Follow Up: Tony Rodriguez MD [STAFF PHYSICIAN] - Within 1 Month Jeanna Kate MD [Primary Care Provider] - Within 2 Weeks Disposition Disposition (needs filled in before D/C Order can be placed): Home, Self Care Charges/Coding Visit Charges Inpatient E&M: 03725 Disch Hosp
--- NOTE | 2021-08-01 12:25 | CASEMGMT ---
Pt requires increased O2 order, faxed order and dc summary to [facility]. Pt has portable tank in room to go home on.
== END 2021-08-01 14:34 | disposition home or self-care (01) | DRG 137 ==
LOC: ED 21:58 → PCU 07-19 00:27 → ICU 07-20 08:35 → MS3 07-28 11:07
PROVIDERS: Internal Medicine Critical Care Medicine; Admitting Provider Hospitalist; Emergency Provider Student in an Organized Health Care Education/Training Program; PCP Internal Medicine; Visit Provider Internal Medicine
DX: U07.1 COVID-19 (principal); J12.82 Pneumonia due to coronavirus disease 2019; J96.01 Acute respiratory failure with hypoxia; J13 Pneumonia due to Streptococcus pneumoniae; E87.6 Hypokalemia; F41.9 Anxiety disorder, unspecified; E66.01 Morbid (severe) obesity due to excess calories; F17.210 Nicotine dependence, cigarettes, uncomplicated; Z99.81 Dependence on supplemental oxygen; Z79.899 Other long term (current) drug therapy; Z68.44 Body mass index [BMI] 60.0-69.9, adult
CPT/HCPCS: 36415; 71045; 71275; 80048; 80053; 81001; 83605; 84145; 85025; 85610; 85730; 86140; 87040; 87070; 87077; 87086; 87088; 87186; 87205; 93005; 94003; 94640; 94660; 94667; 94668; 94762; 96374; 97802; 97803; 99251; 99283; 99284; J7050; Q9967; A4216; G0463; J0696; J1940